=== PATIENT | male | born 1945 | race Caucasian/White ===

== ENCOUNTER 2016-05-01 16:48 | Inpatient (IN) | payer OTHER ==
[~2016-05-01] VITALS: Ht 167.6 cm; Wt 50.0 kg
[2016-05-01 16:51] VITALS: BP 124/80; RESP 18
[2016-05-01 17:49] VITALS: Ht 167.6 cm; Wt 50.0 kg
[2016-05-01] MEDS ORDERED: MAGNESIUM HYDROXIDE 30ML CUP PO PRN (18:30)
[2016-05-01] MEDS ORDERED: ACETAMINOPHEN 325 MG TAB PO PRN (18:30)
[2016-05-01] MEDS ORDERED: NACL 0.9% 3 ML SYG IV SCH (18:30)
[2016-05-01] MEDS ORDERED: DOCUSATE SODIUM 100 MG CAP PO PRN (18:30)
[2016-05-01] MEDS ORDERED: ONDANSETRON 4 MG INJ IV PRN (18:30)
[2016-05-01] MEDS ORDERED: HYDROCODONE/APAP (5/325) TAB PO PRN (18:30)
--- NOTE | 2016-05-01 19:35 | HP ---
DATE OF ADMISSION: 05/01/2016 CHIEF COMPLAINT: Left hip pain. HISTORY OF PRESENT ILLNESS: The patient is a 70-year-old male with a history of hypertension, end-s tage renal disease on dialysis for the past 2 years. The patient's management technician is Dr. Catarino knox. The patient states that he was mopping the floor when he fell on his left side. Presented to [facility] where x-ray showed left hip fracture. Patient denies any cardiac history. Denies any other si gnificant medical history, states that he has not been on his blood pressure medications because he was told to stop by his PCP as he does not need it. He has no other complaints at this time. PAST MEDICAL HISTORY: Hypertension, end-stage renal disease, likely from chronic hypertension. The patient has been on dialysis for the past several years. PAST SURGICAL HISTORY: Denies. HOME MEDICATIONS: Unknown at this time. ALLERGIES: NO KNOWN DRUG ALLERGIES. FAMILY HISTORY: Denies. SOCIAL HISTORY: Denies any alcohol, tobacco or drugs. REVIEW OF SYSTEMS: A 12-point review of systems is negative except for that discussed in HPI. PHYSICAL EXAMINATION: VITAL SIGNS: Temperature is 98.9, pulse 100, respiratory rate 18, BP is 124/80, saturation ____% on room air. GENERAL: No acute distress, alert and oriented. HEENT: Normocephalic, atraumatic. LUNGS: Clear to auscultation. CARDIOVASCULAR: Regular rate and rhythm. ABDOMEN: Nondistended, nontender, soft. EXTREMITIES: No clubbing, cyanosis, or edema. LABORATORIES: White count 12.8, hemoglobin is 12.6, platelets 246. Sodium is 131, K is 7.1, creati nine is 12.36, BUN is 127. DIAGNOSTICS: Left hip x-ray shows a left hip fracture. EKG shows sinus tachycardia, nonspecific T- wave abnormality. ASSESSMENT AND PLAN: 1. Left femoral neck fracture. Dr. Pedroza of Orthopedics has been consulted and will evaluate the pat ient this evening. The patient will likely need to have surgery. Will give morphine and [place] for pain control. 2. Hyperkalemia. It appears that the patient received dialysis last night at [place] as the patient 's K was severely elevated. The patient got admitted due to this hyperkalemia and receive emergent dialysis. Will consult his management technician, Dr. Mccabe, for further dialysis. 3. History of hypertension. The patient states that he is not on any blood pressure medications at this time. 4. Leukocytosis. This could be reactive. No evidence of infection at this time. Will monitor. 5. End-stage renal disease. Once again we will consult his management technician. 6. Prophylaxis. SCDs. Dictated By: TERESA LEA MD BS/NTS Conf#: [id number] DID#: [id number]
[2016-05-01 19:46] VITALS: BP 126/81; RESP 18
--- NOTE | 2016-05-01 20:40 | CONS ---
DATE OF ADMISSION: 05/01/2016 DATE OF CONSULTATION: 05/01/2016 HISTORY OF PRESENT ILLNESS: The patient is a 70-year-old male, with a known history of end-stage re nal disease on dialysis for the past 2 years, who was transferred in from the Emergency Room of [facility] on 05/01/2016. He developed pain involving his left hip about 2 months ago, and the elsy n was bad enough for him to go around with a walker; however, he sustained a ground level fall about 15 days ago while mopping the floor 15 days ago and he has been experiencing worsening pain. In th e Emergency Room of [facility], he was found to have hyperkalemia. He is also known to have ch ronic hypertension. PHYSICAL EXAMINATION GENERAL: My examination revealed a 70-year-old male, somewhat emaciated, who was complaining of elsy n involving his left hip. EXTREMITIES: There was tenderness and swelling around the left hip, but the swelling was minimal at this time. He was holding his left lower extremity externally rotated and slightly shortened. The re was no evidence of acute neurovascular compromise involving his left lower extremity. X-RAYS: Of the pelvis revealed a subcapital femoral neck fracture of the left hip, which is complet joseluis displaced. DIAGNOSTIC IMPRESSION 1. Subcapital femoral neck fracture of the left hip. 2. Rule out remote possibility of pathologic fracture because of the absence of trauma, the further development of the left hip pain. TREATMENT PLAN 1. Rule out the possibility of pathologic fracture. 2. To surgery for hemiarthroplasty of the left hip after appropriate workup and medical clearance. Dictated By: ABIMBOLA KIRKLAND/VIOLA Conf#: [id number] DID#: [id number]
--- NOTE | 2016-05-01 23:02 | CONS ---
DATE OF ADMISSION: 05/01/2016 DATE OF CONSULTATION: 05/01/2016 TYPE OF CONSULTATION: Nephrology. REFERRING PHYSICIAN: Dr. Garzon REASON FOR CONSULTATION: End-stage renal disease on hemodialysis who presented with a hip fracture for maintenance hemodialysis. HISTORY OF PRESENT ILLNESS: This is a 70-year-old male with a past medical history of hypertension, history of polycystic kidney disease and end-stage renal disease on hemodialysis for the past 2 yea rs. The patient follows at the dialysis unit for scheduled dialysis on Thursday and . He pr esented to the [facility] after having a fall episode. The patient was moping his floor when he fell on his left side. He went to the [facility] Emergency Room where his x-ray shows a left hip fracture. The patient denies any cardiac history. He has no other significant past medical his tory except hypertension and polycystic kidney disease. He has not been taking his blood pressure m edications because his blood pressures has been running on the lower side of dialysis. The patient denies any symptoms of chest pain, palpitations, headache, dizziness, blurry vision, constipation, d iarrhea, dysuria, increased urinary frequency. The patient has a left hip fracture. He got transferred to the [facility] for [facility] care. REVIEW OF SYSTEMS: Positive for a fall episode at home and the left hip pain. Other 12 point revie w of systems has been obtained and is negative except what is mentioned in the history of present il lness. PAST MEDICAL HISTORY: Notable for hypertension, hyperlipidemia, end-stage renal disease on hemodial ysis secondary to a polycystic kidney disease. Patient gets dialysis Tuesdays and through the AV fistula. PAST SURGICAL HISTORY: History of AV fistula for dialysis access. HOME MEDICATIONS: Not available. ALLERGIES: NO KNOWN DRUG ALLERGIES. FAMILY HISTORY: No family history of cardiac disease or stroke in the family. Patient is not sure about his parents, whether they had a polycystic kidney disease or not. SOCIAL HISTORY: The patient lives with the family. No smoking, alcohol or recreational drug use. PHYSICAL EXAMINATION: VITAL SIGNS: Temperature 99.2, heart rate 110, respirations 18, blood pressure 126/81, saturation i s 94% on room air. GENERAL: Awake, alert. Mild distress due to the pain and tachycardia. HEENT: Normal. Oropharynx clear. NECK: Supple, no JVD, no lymphadenopathy. LUNGS: Clear to auscultation. No crackles, no wheezes. HEART: S1, S2, with regular rhythm, tachycardia. ABDOMEN: Soft, nontender, nondistended. Bowel sounds are normal. EXTREMITIES: The patient has left hip pain externally rotated. Not able to assess any motor strength or sensations on the left side. Right lower extremity is normal. NEUROLOGICAL: Nonfocal, intact. PSYCHIATRIC: Appropriate affect and mood. SKIN: The patient has AV fistula for dialysis access. The patient has no labs available here at [facility] but he has labs done at the [facility] as follows: WBC count 12.8, hemoglobin 12.6, platelet count 246. Sodium 131, potass ium 7.1, creatinine is 12.3, BUN 127. DIAGNOSTIC: Left hip x-ray shows a left hip fracture. EKG shows a sinus tachycardia, nonspecific T- wave abnormalities. IMPRESSION: This is a 70-year-old male with: 1. Left hip femoral neck fracture. 2. Acute hyperkalemia. The patient received dialysis last night at the [facility] because it was severely elevated. 3. History of end-stage renal disease on hemodialysis Thursday, and Thursday at the dialysi s unit. 4. History of polycystic kidney disease has etiology for end-stage renal disease. 5. History of hypertension, not on any medication. 6. Leukocytosis secondary to possibly reactive leukocytosis. PLAN: Thank you, Dr. Garzon, for this consultation. The patient had hemodialysis done emergently yesterday night on 04/30/2016 at [facility]. Currently, he got transferred to the [facility]. There are no chemistries available, but his potassium had been normal after the hemodialysis over there. His blood pressure has been very well controlled at this point. We will ar range the patient's hemodialysis to be done tomorrow. The patient is currently seen on the med/surg floor and he will be followed up along with the primary care service. The patient has a left hip f racture. He has no other significant cardiac history. He is medically stable from a renal point of view to have a hip surgery. Plan is to do another session of hemodialysis tomorrow if orthopedic is planning to do a surgery. We will continue to follow this patient along with the primary care service and the orthopaedic servic e. Total time spent in this patient evaluation, making assessment and plan, [facility] and updating the patient, communicating with the nursing staff took more than 60 minutes. Dictated By: AME MESA MD, KP/VIOLA Conf#: [id number] DID#: [id number]
[2016-05-02] VITALS (13 sets, daily range): BP systolic 100–135; BP diastolic 64–92; PULSE 79–106; RESP 16–18
[2016-05-02 06:25] LABS: ADD SCAN DIFF NO
[2016-05-02 06:28] LABS: ABNORMAL IP MESSAGE 1; BASOPHILS % 0.4 % (0.0-2.0); EOSINOPHILS # 0.1 10^3/ul (0.0-0.5); EOSINOPHILS % 0.9 % (0.0-7.0); HEMATOCRIT 37.2 % (42.0-52.0); HEMOGLOBIN 12.4 g/dl (14.0-18.0); LYMPHOCYTES # 0.4 10^3/ul (0.8-2.9); LYMPHOCYTES % 4.8 % (15.0-51.0); MEAN CORPUSCULAR HEMOGLOBIN 29.9 pg (29.0-33.0); MEAN CORPUSCULAR HGB CONC 33.3 g/dl (32.0-37.0); MEAN CORPUSCULAR VOLUME 89.6 fl (82.0-101.0); MEAN PLATELET VOLUME 10.1 fl (7.4-10.4); MONOCYTE # 0.8 10^3/ul (0.3-0.9); MONOCYTES % 9.6 % (0.0-11.0); NEUTROPHIL # 7.2 10^3/ul (1.6-7.5); NEUTROPHILS % 84.1 % (39.0-77.0); PLATELET COUNT 342 10^3/UL (140-415); RED BLOOD COUNT 4.15 10^6/ul (4.70-6.10); RED CELL DISTRIBUTION WIDTH 13.2 % (11.5-14.5); WHITE BLOOD COUNT 8.5 10^3/ul (4.8-10.8)
[2016-05-02 07:00] LABS: CREATININE 8.31 mg/dl (0.61-1.24)
[2016-05-02 07:01] LABS: MAGNESIUM 2.3 mg/dl (1.7-2.5); PHOSPHORUS 7.5 mg/dl (2.5-4.9)
[2016-05-02 08:12] LABS: INR 1.16; PROTIME 14.9 Sec (12.2-14.2); PT RATIO 1.2
--- NOTE | 2016-05-02 11:01 | CONS ---
Date/Time of Note Date/Time of Note DATE: 05/02/16 TIME: 10:55 Assessment/Plan Assessment/Plan Additional Assessment/Plan Preoperative cardiac risk stratification Hip fracture End-stage renal disease on hemodialysis Hypertension -Patient states he is able to climb at least 2 flights of stairs before getting fatigue, denies exertional chest pain or shortness of breath. No significant ischemic abnormalities on ECG. Would obtain an echocardiogram as well to evaluate LV function secondary to the need of any fluids for raphael-and postoperative period. Unless any significant valvular abnormalities, given patient's multiple risk factors, he is at an intermediate risk for any untoward cardiac events for his surgery. The benefits likely outweigh the risks. Consultation Date/Type/Reason Admit Date/Time May 01, 2016 at 16:48 Type of Consultation: cv Reason for Consultation Hip fracture and preoperative cardiac risk stratification Hx of Present Illness This is a 70-year-old male with history of hypertension, end-stage renal disease on hemodialysis for the past 3 years who had a mechanical fall approximately 1 week ago. Patient states he slipped and fell on his left side. He denies any prodrome of dizziness or lightheadedness, chest pain or shortness of breath. He has been having continual left hip pain and difficulty walking since then. He presented to an outside facility and diagnosed with a hip fracture and transferred to our facility for further evaluation and care. Prior to this, he denies any exertional chest pain or shortness of breath. He is able to climb at least 2 flights of stairs until getting fatigued, but denies chest pain or shortness of breath. He denies any history of cardiac pathology. 12 point review of systems was performed with all pertinent positives and negatives mentioned above and all else is negative Past Medical History Medical History: hypertension, renal disease Past Surgical History Dialysis fistula Hernia surgery Family History Significant Family History: no pertinent family hx Social History Alcohol Use: none Smoking Status: Former smoker Drug Use: none Exam/Review of Systems Vital Signs Vitals Vital Signs Date Time Temp Pulse Resp B/P Pulse Ox O2 Delivery O2 Flow Rate FiO2 05/02/16 10:25 102 05/02/16 08:30 14 05/02/16 08:13 99.1 135/84 99 Intake and Output 05/01/16 05/01/16 05/02/16 15:00 23:00 07:00 Intake Total 120 ml Balance 120 ml Exam No apparent distress, undergoing hemodialysis Constitutional: alert, frail, oriented Head: normocephalic Neck: supple Respiratory: other (Coarse breath sounds bilaterally, no wheezing, rhonchi) Cardiovascular: other (S1-S2 heard), regular rate and rhythm Gastrointestinal: bowel sounds, non-tender, other (No guarding), soft Extremities: other (No edema or cyanosis) Results Result Diagram: 05/02/16 0559 05/02/16 0559 Results 24 hrs Laboratory Tests Test 05/02/16 05:59 Activated Partial Thromboplast Time 33.0 Anion Gap 22 H Basophils # 0.0 Basophils % 0.4 Blood Urea Nitrogen 76 H Calcium Level 9.0 Carbon Dioxide Level 26 Chloride Level 95 L Creatinine 8.31 H Eosinophils # 0.1 Eosinophils % 0.9 Glucose Level 100 Hematocrit 37.2 L Hemoglobin 12.4 L Hemoglobin A1c 5.3 INR International Normalized Ratio 1.16 Lymphocytes # 0.4 L Lymphocytes % 4.8 L Magnesium Level 2.3 Mean Corpuscular Hemoglobin 29.9 Mean Corpuscular Hemoglobin Concent 33.3 Mean Corpuscular Volume 89.6 Mean Platelet Volume 10.1 Monocytes # 0.8 Monocytes % 9.6 Neutrophils # 7.2 Neutrophils % 84.1 H Nucleated Red Blood Cells # 0.0 Nucleated Red Blood Cells % 0.0 Phosphorus Level 7.5 H Platelet Count 342 Potassium Level 5.0 Prothrombin Time 14.9 H Prothrombin Time Ratio 1.2 Red Blood Count 4.15 L Red Cell Distribution Width 13.2 Sodium Level 138 White Blood Count 8.5 Medications Medications Current Medications Ondansetron HCl (Zofran Inj) 4 mg Q6H PRN IV NAUSEA AND/OR VOMITING; Start 05/01 at 18:30 Acetaminophen (Tylenol Tab) 650 mg Q6H PRN PO PAIN LEVEL 1-3 OR FEVER; Start at 18:30 Acetaminophen/ Hydrocodone Bitart ([place] (5/325)) 1 tab Q6H PRN PO MODERATE PAIN LEVEL 4-6; Start 05/01/16 at 18:30 Morphine Sulfate (morphine) 2 mg Q4H PRN IV SEVERE PAIN LEVEL 7-10; Start at 18:30 Docusate Sodium (Colace) 100 mg Q12H PRN PO CONSTIPATION; Start 05/01/16 at 18: 30 Magnesium Hydroxide (Milk Of Mag) 30 ml DAILY PRN PO CONSTIPATION; Start at 18:30 Procedures Procedures ECG done today demonstrates sinus tachycardia 104 bpm, QRS 86 ms, nonspecific STT wave abnormalities Jerry Che DO May 02, 2016 11:01
--- NOTE | 2016-05-02 13:46 | RADRPT ---
Vent Rate: 104 bpm RR Interval: [address] Interval: 112 msec QRS Duration: 86 msec QT Interval: 350 msec QTC Interval: 460 msec P-R-T [place]: 57 - 40 - 71 degrees Sinus tachycardia Nonspecific ST abnormality Abnormal ECG Electronically Signed By: Matt Bryson [id number]
--- NOTE | 2016-05-02 14:11 | PN ---
Date/Time of Note Date/Time of Note DATE: 05/02/16 TIME: 14:07 Assessment/Plan VTE Prophylaxis VTE Prophylaxis Intervention: SCD's Lines/Catheters IV Catheter Type (from [facility]): [place] Urinary Cath still in place: No Assessment/Plan Chief Complaint/Hosp Course 1. Left femoral neck fracture -Surgery today -Cards eval appreciated 2. ESRD with Hyperkalemia at outside facility- now stable -cont HD per Renal 3. History of hypertension-stable without Rx 4. Leukocytosis-resolved -No evidence of infection at this time PPx-SCD's Problems: Subjective 24 Hr Interval Summary Musculoskeletal: bone/joint pain Exam/Review of Systems Vital Signs Vitals Vital Signs Date Time Temp Pulse Resp B/P Pulse Ox O2 Delivery O2 Flow Rate FiO2 05/02/16 13:52 98.3 05/02/16 11:42 79 14 05/02/16 08:13 135/84 99 Intake and Output 05/01/16 05/01/16 05/02/16 15:00 23:00 07:00 Intake Total 120 ml Balance 120 ml Exam Constitutional: alert, oriented Respiratory: clear to auscultation Cardiovascular: regular rate and rhythm Gastrointestinal: soft, No distended Musculoskeletal: nl extremities to inspection Results Result Diagram: 05/02/16 0559 05/02/16 0559 Results 24 hrs Laboratory Tests Test 05/02/16 05:59 Activated Partial Thromboplast Time 33.0 Anion Gap 22 H Basophils # 0.0 Basophils % 0.4 Blood Urea Nitrogen 76 H Calcium Level 9.0 Carbon Dioxide Level 26 Chloride Level 95 L Creatinine 8.31 H Eosinophils # 0.1 Eosinophils % 0.9 Glucose Level 100 Hematocrit 37.2 L Hemoglobin 12.4 L Hemoglobin A1c 5.3 INR International Normalized Ratio 1.16 Lymphocytes # 0.4 L Lymphocytes % 4.8 L Magnesium Level 2.3 Mean Corpuscular Hemoglobin 29.9 Mean Corpuscular Hemoglobin Concent 33.3 Mean Corpuscular Volume 89.6 Mean Platelet Volume 10.1 Monocytes # 0.8 Monocytes % 9.6 Neutrophils # 7.2 Neutrophils % 84.1 H Nucleated Red Blood Cells # 0.0 Nucleated Red Blood Cells % 0.0 Phosphorus Level 7.5 H Platelet Count 342 Potassium Level 5.0 Prothrombin Time 14.9 H Prothrombin Time Ratio 1.2 Red Blood Count 4.15 L Red Cell Distribution Width 13.2 Sodium Level 138 White Blood Count 8.5 Medications Medications Current Medications Ondansetron HCl (Zofran Inj) 4 mg Q6H PRN IV NAUSEA AND/OR VOMITING; Start 05/01 at 18:30 Acetaminophen (Tylenol Tab) 650 mg Q6H PRN PO PAIN LEVEL 1-3 OR FEVER; Start at 18:30 Acetaminophen/ Hydrocodone Bitart ([place] (5/325)) 1 tab Q6H PRN PO MODERATE PAIN LEVEL 4-6; Start 05/01/16 at 18:30 Morphine Sulfate (morphine) 2 mg Q4H PRN IV SEVERE PAIN LEVEL 7-10; Start at 18:30 Docusate Sodium (Colace) 100 mg Q12H PRN PO CONSTIPATION; Start 05/01/16 at 18: 30 Magnesium Hydroxide (Milk Of Mag) 30 ml DAILY PRN PO CONSTIPATION; Start at 18:30 TERESA LEA May 02, 2016 14:11
--- NOTE | 2016-05-02 15:12 | RADRPT ---
Echocardiogram Report Patient Name: MC TYLER Gender: Male Date: 1945 Study Date: 02-May-2016 Transformer Tester: Dom Serna [facility] Location: [id number] Ref. Physician: JERRY RUELAS Quality: Technically Difficult Study Procedures: Transthoracic echocardiogram with complete 2D, M-Mode, and doppler examination. Indications: Pre-op. 2D/M Mode Doppler Measurement Value Normal Ranges Measurement Value Normal Ranges LVIDd 2D 3.8 3.5 - 5.6 cm AV Peak [place] 1.2 m/sec LVIDs 2D 2.8 2.1 - 4.1 cm AV Peak PG 6.0 mmHg FS 2D 26.4 % LVOT Peak [place] 0.7 m/sec LVPWd 2D 1.2 0.6 - 1.1 cm LVOT Peak PG 2.0 mmHg IVSd 2D 1.3 0.6 - 1.1 cm MV E Peak [place] 0.4 m/sec IVS/LVPW 2D 1.0 MV A Peak [place] 0.6 m/sec AoR Diam 2D 3.4 2.0 - 3.7 cm MV E/A 0.7 LA/Ao 2D 1 0 - 1 MV Decel Time 134 msec EDV 2D 52.7 cm3 MV E/A 0.7 ESV 2D 21.0 cm3 TR Peak [place] 2.3 m/sec LA Dimen 2D 2.8 2.3 - 4.0 cm TR Peak PG 22.0 mmHg RVSP 25.0 mmHg Findings Left Ventricle: Overall, normal left ventricular systolic function. Not all segments visualized. Normal left ventricular cavity size. Mild concentric left ventricular hypertrophy. Ejection fraction is visually estimated at 60 %. Tissue Doppler/Mitral Doppler indices are consistent with impaired relaxation (Stage I diastolic dysfunction). Right Ventricle: Normal right ventricular size. Normal right ventricular systolic function. Left Atrium: The left atrium is normal in size. Right Atrium: The right atrium is normal in size. Mitral Valve: Mitral valve is not well visualized. Trace mitral regurgitation. Aortic Valve: No significant aortic stenosis or insufficiency. Aortic valve not well visualized. Aortic cusps appear mildly calcified. Tricuspid Valve: Tricuspid valve not well visualized. Estimated peak PA systolic pressure 25 mmHg. There is trace tricuspid regurgitation. Pulmonic Valve: Pulmonic valve not well visualized. Pericardium: Normal pericardium with no significant pericardial effusion. Aorta: Normal aortic root. IVC: Normal size and normal respiratory collapse consistent with normal right atrial pressure. Conclusions 1.Overall, normal left ventricular systolic function. Not all segments visualized. Normal left ventricular cavity size. Mild concentric left ventricular hypertrophy. Ejection fraction is visually estimated at 60 %. Tissue Doppler/Mitral Doppler indices are consistent with impaired relaxation (Stage I diastolic dysfunction). 2.Normal right ventricular size. Normal right ventricular systolic function. 3.The left atrium is normal in size. 4.The right atrium is normal in size. 5.No significant valvular stenosis or regurgitation seen. 6.Normal pericardium with no significant pericardial effusion. Electronically Signed By: Jerry Ruelas 02-May-2016 15:08:50 -0800 Patient Name: MC TYLER Study Date: 02-May-2016 [id number]
--- NOTE | 2016-05-02 15:28 | CONS ---
Date/Time of Note Date/Time of Note DATE: 05/02/16 TIME: 15:25 Assessment/Plan Assessment/Plan Additional Assessment/Plan 1. Left hip femoral neck fracture. 2. Acute hyperkalemia. The patient received dialysis last night at the [facility] because it was severely elevated. 3. History of end-stage renal disease on hemodialysis Thursday, and Thursday at the dialysis unit. 4. History of polycystic kidney disease has etiology for end-stage renal disease. 5. History of hypertension, not on any medication. 6. Leukocytosis secondary to possibly reactive leukocytosis. PLAN: Getting HD now, no HD tomorrow Plan for orthopedic surgery today will paln for next HD on Thursday will follow up Consultation Date/Type/Reason Admit Date/Time May 01, 2016 at 16:48 Initial Consult Date April Type of Consultation: NEPHROLOGY Reason for Consultation ESRD on HD,presented with left femoral fracture Referring Provider: TERESA LEA 24 HR Interval Summary Free Text/Dictation getting HD now, Plan for Surery today by Exam/Review of Systems Vital Signs Vitals Vital Signs Date Time Temp Pulse Resp B/P Pulse Ox O2 Delivery O2 Flow Rate FiO2 05/02/16 13:52 98.3 05/02/16 11:42 79 14 05/02/16 08:13 135/84 99 Intake and Output 05/01/16 05/01/16 05/02/16 15:00 23:00 07:00 Intake Total 120 ml Balance 120 ml Exam GENERAL: Awake, alert. Mild distress due to the pain and tachycardia. HEENT: Normal. Oropharynx clear. NECK: Supple, no JVD, no lymphadenopathy. LUNGS: Clear to auscultation. No crackles, no wheezes. HEART: S1, S2, with regular rhythm, tachycardia. ABDOMEN: Soft, nontender, nondistended. Bowel sounds are normal. EXTREMITIES: The patient has left hip pain externally rotated. Not able to assess any motor strength or sensations on the left side. Right lower extremity is normal. NEUROLOGICAL: Nonfocal, intact. PSYCHIATRIC: Appropriate affect and mood. SKIN: The patient has AV fistula for dialysis access. Results Result Diagram: 05/02/16 0559 05/02/16 0559 Results 24 hrs Laboratory Tests Test 05/02/16 05:59 Activated Partial Thromboplast Time 33.0 Anion Gap 22 H Basophils # 0.0 Basophils % 0.4 Blood Urea Nitrogen 76 H Calcium Level 9.0 Carbon Dioxide Level 26 Chloride Level 95 L Creatinine 8.31 H Eosinophils # 0.1 Eosinophils % 0.9 Glucose Level 100 Hematocrit 37.2 L Hemoglobin 12.4 L Hemoglobin A1c 5.3 INR International Normalized Ratio 1.16 Lymphocytes # 0.4 L Lymphocytes % 4.8 L Magnesium Level 2.3 Mean Corpuscular Hemoglobin 29.9 Mean Corpuscular Hemoglobin Concent 33.3 Mean Corpuscular Volume 89.6 Mean Platelet Volume 10.1 Monocytes # 0.8 Monocytes % 9.6 Neutrophils # 7.2 Neutrophils % 84.1 H Nucleated Red Blood Cells # 0.0 Nucleated Red Blood Cells % 0.0 Phosphorus Level 7.5 H Platelet Count 342 Potassium Level 5.0 Prothrombin Time 14.9 H Prothrombin Time Ratio 1.2 Red Blood Count 4.15 L Red Cell Distribution Width 13.2 Sodium Level 138 White Blood Count 8.5 Medications Medications Current Medications Ondansetron HCl (Zofran Inj) 4 mg Q6H PRN IV NAUSEA AND/OR VOMITING; Start 05/01 at 18:30 Acetaminophen (Tylenol Tab) 650 mg Q6H PRN PO PAIN LEVEL 1-3 OR FEVER; Start at 18:30 Acetaminophen/ Hydrocodone Bitart ([place] (5/325)) 1 tab Q6H PRN PO MODERATE PAIN LEVEL 4-6; Start 05/01/16 at 18:30 Morphine Sulfate (morphine) 2 mg Q4H PRN IV SEVERE PAIN LEVEL 7-10; Start at 18:30 Docusate Sodium (Colace) 100 mg Q12H PRN PO CONSTIPATION; Start 05/01/16 at 18: 30 Magnesium Hydroxide (Milk Of Mag) 30 ml DAILY PRN PO CONSTIPATION; Start at 18:30 AME MESA MD May 02, 2016 15:28
--- NOTE | 2016-05-02 16:56 | RADRPT ---
PROCEDURE: Whole body bone scan study CLINICAL INDICATION: 70 -year-old patient with left lower extremity and shoulder pain. TECHNIQUE: Following the intravenous injection of 23.5 mCi of Tc-99m MDP, whole body anterior and posterior planar images were obtained along with spot views of the pelvis. COMPARISON: No prior bone scans are available for comparison. FINDINGS: Numerous areas of increased activity are seen in both shoulders, left anterior rib cage, right poste rior approximately 6th rib, mid cervical spine, T11 thoracic spine and both sacroiliac joints, more prominent on the right. Mildly increased activity is also seen in the left hip region. No other definite abnormal areas of increased activity or asymmetries are visualized in the study an d distribution of radionuclide is homogeneous in the skull, spine, rib cages, sternum, pelvis and vi sualized portions of the upper and lower extremities. Of incidental note, the kidneys are poorly visualized. IMPRESSION: 1. Numerous areas of increased tracer activity in the skeleton, as described above, may represent p ost-traumatic changes; correlation with x-ray is strongly recommended. Other etiologies such as ske letal metastases cannot be ruled out, but felt to be less likely possibility. 2. No other definite skeletal abnormalities. 3. Poor visualization of the kidneys. RPTAT: HH .Jacquelin Leyva MD, Date Time Electronically viewed and signed by .Jacquelin Leyva MD, on 05/02/2016 16:56 .L/
[2016-05-02] MEDS: morphine 2 MG INJ IV PRN (20:44)
[2016-05-03] VITALS (16 sets, daily range): BP systolic 117–137; BP diastolic 75–83; PULSE 80–84; RESP 11–25
[2016-05-03 05:32] LABS: ADD SCAN DIFF NO
[2016-05-03 05:52] LABS: BASOPHILS % 0.2 % (0.0-2.0); EOSINOPHILS # 0.2 10^3/ul (0.0-0.5); EOSINOPHILS % 2.5 % (0.0-7.0); HEMOGLOBIN 12.8 g/dl (14.0-18.0); LYMPHOCYTES # 0.6 10^3/ul (0.8-2.9); LYMPHOCYTES % 7.2 % (15.0-51.0); MEAN CORPUSCULAR HGB CONC 32.8 g/dl (32.0-37.0); MEAN CORPUSCULAR VOLUME 91.5 fl (82.0-101.0); MEAN PLATELET VOLUME 9.9 fl (7.4-10.4); MONOCYTE # 0.9 10^3/ul (0.3-0.9); MONOCYTES % 10.4 % (0.0-11.0); NEUTROPHILS % 79.2 % (39.0-77.0); PLATELET COUNT 396 10^3/UL (140-415); RED BLOOD COUNT 4.26 10^6/ul (4.70-6.10); RED CELL DISTRIBUTION WIDTH 13.1 % (11.5-14.5); WHITE BLOOD COUNT 8.8 10^3/ul (4.8-10.8)
[2016-05-03 06:24] LABS: POTASSIUM 3.7 mmol/L (3.5-5.1)
[2016-05-03 06:27] LABS: CALCIUM 9.3 mg/dl (8.4-10.2); CREATININE 6.77 mg/dl (0.61-1.24)
[2016-05-03] MEDS ORDERED: CEFAZOLIN 1 GM INJ ONE (07:00)
[2016-05-03] MEDS ORDERED: ONDANSETRON 4 MG INJ ONE (07:00)
--- NOTE | 2016-05-03 09:41 | HPN ---
Date/Time of Note Date/Time of Note DATE: 05/03/16 TIME: 09:40 Interval H&P Admission Note Pt. seen H&P reviewed: No system changes MARY COY MD May 03, 2016 09:41
[2016-05-03] MEDS ORDERED: FENTAnyl 50 MCG/ML VIAL ONE ×2 (09:56)
[2016-05-03] MEDS ORDERED: PROPOFOL 100 ML ONE (10:24)
[2016-05-03] MEDS ORDERED: LABETALOL HCL 20MG INJ ONE (10:25)
[2016-05-03] MEDS ORDERED: MIDAZOLAM 1 MG/ML 2 ML INJ ONE (10:31)
[2016-05-03] MEDS ORDERED: POLYMYXIN/BACITRACIN 1L IRRIG IRR ONE (10:46)
[2016-05-03] MEDS ORDERED: LABETALOL HCL 20MG INJ IV PRN (11:00)
[2016-05-03] MEDS ORDERED: MIDAZOLAM 1 MG/ML 2 ML INJ IV PRN (11:00)
[2016-05-03] MEDS ORDERED: TRIMETHOBENZAMIDE 100 MG/ML VIAL IM PRN (11:00)
[2016-05-03] MEDS ORDERED: ONDANSETRON 4 MG INJ IV PRN (11:00)
[2016-05-03] MEDS ORDERED: hydrALAzine 20 MG INJ IV PRN (11:00)
[2016-05-03] MEDS ORDERED: HYDROmorphONE (0.2 MG/ML) 10ML SYG IV PRN ×3 (11:00)
[2016-05-03] MEDS ORDERED: EPHEDrine SULFATE 50 MG/5 ML SYG IV PRN (11:00)
[2016-05-03] MEDS ORDERED: FENTAnyl 50 MCG/ML VIAL IV PRN ×3 (11:00)
[2016-05-03] MEDS ORDERED: DIPHENHYDRAMINE 50 MG INJ IV PRN (11:00)
[2016-05-03] MEDS ORDERED: MEPERIDINE 25 MG INJ IV PRN (11:00)
[2016-05-03] MEDS ORDERED: DEXTROSE 5%-0.45% NACL 1,000 ML IV SCH (11:37)
[2016-05-03] MEDS ORDERED: HYDROmorphONE 1 MG/ML SYG IM PRN (12:00)
[2016-05-03] MEDS ORDERED: HYDROCODONE/APAP (5/325) TAB PO PRN (12:00)
[2016-05-03] MEDS ORDERED: NACL 0.9% 3 ML SYG IV SCH (12:00)
[2016-05-03] MEDS ORDERED: CEFAZOLIN 1 GM/50 ML (PMX) 50 ML IVPB SCH (12:00)
--- NOTE | 2016-05-03 12:20 | CONS ---
Date/Time of Note Date/Time of Note DATE: 05/03/16 TIME: 12:18 Assessment/Plan Assessment/Plan Additional Assessment/Plan 1. Left hip femoral neck fracture. 2. Acute hyperkalemia. The patient received dialysis last night at the [facility] because it was severely elevated. 3. History of end-stage renal disease on hemodialysis Thursday, and Thursday at the dialysis unit. 4. History of polycystic kidney disease has etiology for end-stage renal disease. 5. History of hypertension, not on any medication. 6. Leukocytosis secondary to possibly reactive leukocytosis. PLAN: S/p HD yesterday, plan for HD tomorrow Orthopedic surgery planning for Left hip hemiarthroplasty today will follow up Consultation Date/Type/Reason Admit Date/Time May 01, 2016 at 16:48 Initial Consult Date April Type of Consultation: NEPHROLOGY Reason for Consultation acute hyperkalemia,ESRD on HD, presented with hip fracture Referring Provider: TERESA LEA 24 HR Interval Summary Free Text/Dictation S/p HD yesterday, BP stable, plan for surgery today Exam/Review of Systems Vital Signs Vitals Vital Signs Date Time Temp Pulse Resp B/P Pulse Ox O2 Delivery O2 Flow Rate FiO2 05/03/16 11:48 98.1 05/03/16 07:44 90 18 121/82 95 05/02/16 20:27 Room Air Intake and Output 05/02/16 05/02/16 05/03/16 15:00 23:00 07:00 Intake Total 500 ml 580 ml Output Total 2500 ml 250 ml Balance -2000 ml 330 ml Exam HEENT: Normal. Oropharynx clear. NECK: Supple, no JVD, no lymphadenopathy. LUNGS: Clear to auscultation. No crackles, no wheezes. HEART: S1, S2, with regular rhythm, tachycardia. ABDOMEN: Soft, nontender, nondistended. Bowel sounds are normal. EXTREMITIES: The patient has left hip pain externally rotated. Not able to assess any motor strength or sensations on the left side. Right lower extremity is normal. SKIN: The patient has AV fistula for dialysis access. Results Result Diagram: 05/03/16 0518 05/03/16 0518 Results 24 hrs Laboratory Tests Test 05/03/16 05:18 Anion Gap 20 H Basophils # 0.0 Basophils % 0.2 Blood Urea Nitrogen 60 H Calcium Level 9.3 Carbon Dioxide Level 31 Chloride Level 95 L Creatinine 6.77 H Eosinophils # 0.2 Eosinophils % 2.5 Glucose Level 110 Hematocrit 39.0 L Hemoglobin 12.8 L Lymphocytes # 0.6 L Lymphocytes % 7.2 L Mean Corpuscular Hemoglobin 30.0 Mean Corpuscular Hemoglobin Concent 32.8 Mean Corpuscular Volume 91.5 Mean Platelet Volume 9.9 Monocytes # 0.9 Monocytes % 10.4 Neutrophils # 7.0 Neutrophils % 79.2 H Nucleated Red Blood Cells # 0.0 Nucleated Red Blood Cells % 0.0 Platelet Count 396 Potassium Level 3.7 Red Blood Count 4.26 L Red Cell Distribution Width 13.1 Sodium Level 142 White Blood Count 8.8 Medications Medications Current Medications Ondansetron HCl (Zofran Inj) 4 mg Q6H PRN IV NAUSEA AND/OR VOMITING; Start 05/01 at 18:30 Acetaminophen (Tylenol Tab) 650 mg Q6H PRN PO PAIN LEVEL 1-3 OR FEVER; Start at 18:30 Acetaminophen/ Hydrocodone Bitart ([place] (5/325)) 1 tab Q6H PRN PO MODERATE PAIN LEVEL 4-6; Start 05/01/16 at 18:30 Morphine Sulfate (morphine) 2 mg Q4H PRN IV SEVERE PAIN LEVEL 7-10 Last administered on 05/02/16t 20:44; Admin Dose 2 MG; Start 05/01/16 at 18:30 Docusate Sodium (Colace) 100 mg Q12H PRN PO CONSTIPATION; Start 05/01/16 at 18: 30 Magnesium Hydroxide 30 ml 30 ml DAILY PRN PO CONSTIPATION; Start 05/01/16 at 18: 30 Dextrose/Sodium Chloride (D5-1/2ns) 1,000 ml @ 125 mls/hr Q8H IV ; Start at 11:37 Acetaminophen/ Hydrocodone Bitart ([place] (5/325)) 1 tab Q4H PRN PO PAIN LEVEL 1 -3; Start 05/03/16 at 12:00 Acetaminophen/ Hydrocodone Bitart ([place] (5/325)) 2 tab Q4H PRN PO PAIN LEVEL 4 -7; Start 05/03/16 at 12:00 Hydromorphone HCl 1 mg 1 mg Q3H PRN IM PAIN LEVEL 8-10; Start 05/03/16 at 12:00 Cefazolin Sodium (Ancef 1 Gm/50 ml (Pmx)) 50 ml @ 100 mls/hr NOW IVPB ; Start 05/03/16 at 12:00; Stop 05/03/16 at 12:29 AME MESA MD May 03, 2016 12:19
--- NOTE | 2016-05-03 12:37 | OPR ---
DATE OF OPERATION: 05/03/2016 PREOPERATIVE DIAGNOSIS: Femoral neck fracture of the left hip. POSTOPERATIVE DIAGNOSIS: Femoral neck fracture of the left hip. OPERATION PERFORMED: Hemiarthroplasty of the left hip. SURGEON: Abimbola Pedroza MD ANESTHESIA: General anesthesia. PROCEDURE AND FINDINGS: Under general anesthesia, the patient was placed on right lateral decubitus position with the left side up. Usual prep and drape was done exposing the left hip and left lower extremity. Left hip was approached through the usual posterolateral oblique incision. After split ting gluteal muscles and detaching short external rotators, the hip joint was entered. On entering the joint, it was obvious that there was a femoral neck fracture. Judging from the appearance, it s eems to be old. After removing the femoral head, measurement was made and the size of the femoral h ead is about 44 to 45 mm in diameter. After cleaning acetabular cavity, trial reduction was carried out with the 45 mm bipolar trial cup and the fitting and the stability was entirely satisfactory. After packing the acetabular cavity, attention was then directed to the proximal femur. Following i nitial preparation with box osteotome and T-handled reamer, using gradually increasing size broaches , broaching of the proximal femur was carried out. With size 7 broach in, trial components were ass embled and the joint was reduced. After several trials, it was my impression that +4 neck in a high -offset setting with the 45 mm bipolar cup was the best choice. After removing all the trial components, actual components, namely a size 7 high-offset femoral stem along with the +4 neck and a 45 mm cup were inserted. The joint was reduced. Range of motion and the stability was entirely satisfactory. After irrigation and hemostasis and after reattaching shor t external rotator and capsules, further closure was carried out using #2 Vicryl for muscle and fasc ia and 2-0 Vicryl for subcutaneous tissues. Final skin closure was carried out with skin toi. Usual sterile pressure dressings were applied. The patient tolerated the entire procedure very well and was sent to the recovery room in excellent condition. Dictated By: ABIMBOLA KIRKLAND/VIOLA Conf#: [id number] DID#: [id number]
[2016-05-03 12:39] LABS: HEMATOCRIT 36.5 % (42.0-52.0); HEMOGLOBIN 11.9 g/dl (14.0-18.0)
[2016-05-03 12:40] LABS: POTASSIUM 3.8 mmol/L (3.5-5.1)
[2016-05-03 12:41] LABS: ADD UMIC YES; URINE BILIRUBIN (Dip) NEGATIVE (NEGATIVE); URINE BLOOD (Dip) 3+ (NEGATIVE); URINE COLOR LT. YELLOW (YELLOW); URINE GLUCOSE (Dip) NEGATIVE (NEGATIVE); URINE KETONES (Dip) NEGATIVE (NEGATIVE); URINE LEUKOCYTE ESTERASE (Dip) NEGATIVE (NEGATIVE); URINE NITRITE (Dip) NEGATIVE (NEGATIVE); URINE TOTAL PROTEIN (Dip) 2+ (NEGATIVE); URINE UROBILINOGEN (Dip) 1.0 E.U./dL (0.1-1.0)
[2016-05-03 12:43] LABS: CREATININE 7.13 mg/dl (0.61-1.24)
[2016-05-03 12:44] LABS: CALCIUM 8.8 mg/dl (8.4-10.2)
[2016-05-03 12:53] LABS: BACTERIA,URINE RARE; URINE RBCS >200 /HPF (0)
--- NOTE | 2016-05-03 13:28 | RADRPT ---
PROCEDURE: X-RAY PELVIS CLINICAL INDICATION: Postop left femoral fracture. TECHNIQUE: Single AP view of the pelvis. COMPARISON: No prior studies are available for comparison. FINDINGS: Patient is status post bipolar hemiarthroplasty on the left side. The bones are osteoporotic. No ot her fractures seen. There are skin toi indicating immediate postoperative state on the left marbella e. The prosthesis is in good position and alignment. IMPRESSION: 1. Good position and alignment of a left bipolar hemiarthroplasty. 2. Osteoporosis. No other fractures seen. RPTAT: XX .Kaiser Sparks MD, MD Date Time Electronically viewed and signed by .Kaiser Sparks MD, on 05/03/2016 13:28 .T/
--- NOTE | 2016-05-03 13:29 | RADRPT ---
PROCEDURE: XR Chest. CLINICAL INDICATION: Hip fracture. TECHNIQUE: Single frontal chest x-ray. COMPARISON: None. FINDINGS: With the exception of discoid atelectasis at the right lung base, the remainder of the lungs are benedict ar. The lungs are hyperinflated consistent with COPD. The heart size is normal. Atherosclerotic c hanges are seen in the aorta. No focal infiltration, free pleural fluid or pneumothorax is seen. N o evidence for rib fracture. The bones are osteoporotic.. IMPRESSION: 1. No acute cardiopulmonary process identified. 2. Aortic atherosclerosis. RPTAT: XX .Kaiser Sparks MD, Date Time Electronically viewed and signed by .Kaiser Sparks MD, on 05/03/2016 13:29 .T/
[2016-05-03] MEDS: morphine 2 MG INJ IV PRN (14:25)
--- NOTE | 2016-05-03 17:27 | PN ---
Date/Time of Note Date/Time of Note DATE: 05/03/16 TIME: 17:26 Assessment/Plan VTE Prophylaxis VTE Prophylaxis Intervention: SCD's Lines/Catheters IV Catheter Type (from Nrs): Peripheral IV Assessment/Plan Chief Complaint/Hosp Course 1. Left femoral neck fracture s/p surgical repair -Cards eval appreciated -PT per Ortho 2. ESRD with Hyperkalemia at outside facility- now stable -cont HD per Renal 3. History of hypertension-stable without Rx 4. Leukocytosis-resolved -No evidence of infection at this time PPx-SCD's Problems: Subjective 24 Hr Interval Summary Musculoskeletal: bone/joint pain Exam/Review of Systems Vital Signs Vitals Vital Signs Date Time Temp Pulse Resp B/P Pulse Ox O2 Delivery O2 Flow Rate FiO2 05/03/16 14:29 98.1 80 18 119/83 95 05/03/16 12:46 Nasal Cannula 05/03/16 12:34 2.0 Intake and Output 05/02/16 05/02/16 05/03/16 15:00 23:00 07:00 Intake Total 500 ml 580 ml Output Total 2500 ml 250 ml Balance -2000 ml 330 ml Exam Constitutional: alert, oriented Respiratory: clear to auscultation Cardiovascular: regular rate and rhythm Gastrointestinal: soft, No distended Musculoskeletal: nl extremities to inspection Results Result Diagram: 05/03/16 1226 05/03/16 1226 Results 24 hrs Laboratory Tests Test 05/03/16 05:18 05/03/16 12:21 05/03/16 12:26 Anion Gap 20 H 20 H Basophils # 0.0 Basophils % 0.2 Blood Urea Nitrogen 60 H 66 H Calcium Level 9.3 8.8 Carbon Dioxide Level 31 28 Chloride Level 95 L 98 Creatinine 6.77 H 7.13 H Eosinophils # 0.2 Eosinophils % 2.5 Glucose Level 110 121 Hematocrit 39.0 L 36.5 L Hemoglobin 12.8 L 11.9 L Lymphocytes # 0.6 L Lymphocytes % 7.2 L Mean Corpuscular Hemoglobin 30.0 Mean Corpuscular Hemoglobin Concent 32.8 Mean Corpuscular Volume 91.5 Mean Platelet Volume 9.9 Monocytes # 0.9 Monocytes % 10.4 Neutrophils # 7.0 Neutrophils % 79.2 H Nucleated Red Blood Cells # 0.0 Nucleated Red Blood Cells % 0.0 Platelet Count 396 Potassium Level 3.7 3.8 Red Blood Count 4.26 L Red Cell Distribution Width 13.1 Sodium Level 142 142 White Blood Count 8.8 Urine Bacteria RARE Urine Bilirubin NEGATIVE Urine Clarity SLIGHTLY CLOUDY Urine Color LT. YELLOW Urine Epithelial Cells FEW Urine Glucose NEGATIVE Urine Hemoglobin 3+ H Urine Ketones NEGATIVE Urine Leukocyte Esterase NEGATIVE Urine Microscopic RBC >200 Urine Microscopic WBC 2-5 Urine Nitrite NEGATIVE Urine Specific [place] 1.015 Urine Total Protein 2+ H Urine Urobilinogen 1.0 E.U./dL Urine pH 8.0 Medications Medications Current Medications Ondansetron HCl (Zofran Inj) 4 mg Q6H PRN IV NAUSEA AND/OR VOMITING; Start 05/01 at 18:30 Acetaminophen (Tylenol Tab) 650 mg Q6H PRN PO PAIN LEVEL 1-3 OR FEVER; Start at 18:30 Acetaminophen/ Hydrocodone Bitart ([place] (5/325)) 1 tab Q6H PRN PO MODERATE PAIN LEVEL 4-6; Start 05/01/16 at 18:30 Morphine Sulfate (morphine) 2 mg Q4H PRN IV SEVERE PAIN LEVEL 7-10 Last administered on 05/03/16 14:25; Admin Dose 2 MG; Start 05/01/16 at 18:30 Docusate Sodium (Colace) 100 mg Q12H PRN PO CONSTIPATION; Start 05/01/16 at 18: 30 Magnesium Hydroxide 30 ml 30 ml DAILY PRN PO CONSTIPATION; Start 05/01/16 at 18: 30 Dextrose/Sodium Chloride (D5-1/2ns) 1,000 ml @ 125 mls/hr Q8H IV ; Start at 11:37 Acetaminophen/ Hydrocodone Bitart ([place] (5/325)) 1 tab Q4H PRN PO PAIN LEVEL 1 -3; Start 05/03/16 at 12:00 Acetaminophen/ Hydrocodone Bitart ([place] (5/325)) 2 tab Q4H PRN PO PAIN LEVEL 4 -7; Start 05/03/16 at 12:00 Hydromorphone HCl (Dilaudid) 1 mg Q3H PRN IM PAIN LEVEL 8-10; Start 05/03/16 at 12:00 TERESA LEA May 03, 2016 17:27
[2016-05-04] VITALS (10 sets, daily range): BP systolic 91–130; BP diastolic 62–86; PULSE 98–107; RESP 16–18
[2016-05-04] MEDS: morphine 2 MG INJ IV PRN ×2 (01:37→08:04)
[2016-05-04 06:37] LABS: ADD SCAN DIFF NO
[2016-05-04 06:50] LABS: POTASSIUM 4.8 mmol/L (3.5-5.1)
[2016-05-04 06:52] LABS: CREATININE 8.04 mg/dl (0.61-1.24)
[2016-05-04 06:53] LABS: ABNORMAL IP MESSAGE 1; BASOPHILS % 0.2 % (0.0-2.0); CALCIUM 8.7 mg/dl (8.4-10.2); EOSINOPHILS # 0.1 10^3/ul (0.0-0.5); EOSINOPHILS % 0.6 % (0.0-7.0); HEMATOCRIT 35.4 % (42.0-52.0); HEMOGLOBIN 11.5 g/dl (14.0-18.0); LYMPHOCYTES # 0.5 10^3/ul (0.8-2.9); LYMPHOCYTES % 4.7 % (15.0-51.0); MEAN CORPUSCULAR HEMOGLOBIN 29.9 pg (29.0-33.0); MEAN CORPUSCULAR HGB CONC 32.5 g/dl (32.0-37.0); MEAN CORPUSCULAR VOLUME 92.2 fl (82.0-101.0); MEAN PLATELET VOLUME 10.3 fl (7.4-10.4); MONOCYTE # 1.4 10^3/ul (0.3-0.9); MONOCYTES % 13.1 % (0.0-11.0); NEUTROPHIL # 8.8 10^3/ul (1.6-7.5); NEUTROPHILS % 80.8 % (39.0-77.0); PLATELET COUNT 347 10^3/UL (140-415); RED BLOOD COUNT 3.84 10^6/ul (4.70-6.10); RED CELL DISTRIBUTION WIDTH 13.3 % (11.5-14.5); WHITE BLOOD COUNT 10.9 10^3/ul (4.8-10.8)
[2016-05-04] MEDS ORDERED: ENOXAPARIN 40 MG/0.4 ML SYG SC SCH (09:00)
--- NOTE | 2016-05-04 11:20 | CONS ---
Date/Time of Note Date/Time of Note DATE: 05/04/16 TIME: 11:16 Assessment/Plan Assessment/Plan Additional Assessment/Plan 1. Left hip femoral neck fracture s/p left hip hemiarthroplasty, POD # 1 2. Acute hyperkalemia. The patient received dialysis last night at the [facility] because it was severely elevated. 3. History of end-stage renal disease on hemodialysis Thursday, and Thursday at the dialysis unit. 4. History of polycystic kidney disease has etiology for end-stage renal disease. 5. History of hypertension, not on any medication. 6. Leukocytosis secondary to possibly reactive leukocytosis. PLAN: pt is s/p left hip hemiarthroplasty, plan for HD today and then we wiil keep him on TTS Schedule will follow up Consultation Date/Type/Reason Admit Date/Time May 01, 2016 at 16:48 Initial Consult Date April Type of Consultation: NEPHROLOGY Reason for Consultation acute hyperkalemia,ESRD on HD, presented with hip fracture Referring Provider: TERESA LEA 24 HR Interval Summary Free Text/Dictation acute hyperkalemia,ESRD on HD, presented with hip fracture Exam/Review of Systems Vital Signs Vitals Vital Signs Date Time Temp Pulse Resp B/P Pulse Ox O2 Delivery O2 Flow Rate FiO2 05/04/16 07:17 98.4 101 16 126/86 98 05/03/16 20:00 Nasal Cannula 2.0 Intake and Output 05/03/16 05/03/16 05/04/16 15:00 23:00 07:00 Intake Total 900 ml 500 ml Output Total 375 ml 100 ml Balance 525 ml 400 ml Exam HEENT: Normal. Oropharynx clear. NECK: Supple, no JVD, no lymphadenopathy. LUNGS: Clear to auscultation. No crackles, no wheezes. HEART: S1, S2, with regular rhythm, tachycardia. ABDOMEN: Soft, nontender, nondistended. Bowel sounds are normal. EXTREMITIES: left hip toi with dressing SKIN: The patient has AV fistula for dialysis access. Results Result Diagram: 05/04/16 0458 05/04/16 0458 Results 24 hrs Laboratory Tests Test 05/03/16 12:21 05/03/16 12:26 05/04/16 04:58 Urine Bacteria RARE Urine Bilirubin NEGATIVE Urine Clarity SLIGHTLY CLOUDY Urine Color LT. YELLOW Urine Epithelial Cells FEW Urine Glucose NEGATIVE Urine Hemoglobin 3+ H Urine Ketones NEGATIVE Urine Leukocyte Esterase NEGATIVE Urine Microscopic RBC >200 Urine Microscopic WBC 2-5 Urine Nitrite NEGATIVE Urine Specific [place] 1.015 Urine Total Protein 2+ H Urine Urobilinogen 1.0 E.U./dL Urine pH 8.0 Anion Gap 20 H 24 H Blood Urea Nitrogen 66 H 76 H Calcium Level 8.8 8.7 Carbon Dioxide Level 28 27 Chloride Level 98 91 L Creatinine 7.13 H 8.04 H Glucose Level 121 144 Hematocrit 36.5 L 35.4 L Hemoglobin 11.9 L 11.5 L Potassium Level 3.8 4.8 Sodium Level 142 137 Basophils # 0.0 Basophils % 0.2 Eosinophils # 0.1 Eosinophils % 0.6 Lymphocytes # 0.5 L Lymphocytes % 4.7 L Mean Corpuscular Hemoglobin 29.9 Mean Corpuscular Hemoglobin Concent 32.5 Mean Corpuscular Volume 92.2 Mean Platelet Volume 10.3 Monocytes # 1.4 H Monocytes % 13.1 H Neutrophils # 8.8 H Neutrophils % 80.8 H Nucleated Red Blood Cells # 0.0 Nucleated Red Blood Cells % 0.0 Platelet Count 347 Red Blood Count 3.84 L Red Cell Distribution Width 13.3 White Blood Count 10.9 #H Medications Medications Current Medications Ondansetron HCl (Zofran Inj) 4 mg Q6H PRN IV NAUSEA AND/OR VOMITING; Start 05/01 at 18:30 Acetaminophen (Tylenol Tab) 650 mg Q6H PRN PO PAIN LEVEL 1-3 OR FEVER; Start at 18:30 Acetaminophen/ Hydrocodone Bitart ([place] (5/325)) 1 tab Q6H PRN PO MODERATE PAIN LEVEL 4-6; Start 05/01/16 at 18:30 Morphine Sulfate (morphine) 2 mg Q4H PRN IV SEVERE PAIN LEVEL 7-10 Last administered on 05/04/16 08:04; Admin Dose 2 MG; Start 05/01/16 at 18:30 Docusate Sodium (Colace) 100 mg Q12H PRN PO CONSTIPATION Last administered on 10:00; Admin Dose 100 MG; Start 05/01/16 at 18:30 Magnesium Hydroxide (Milk Of Mag) 30 ml DAILY PRN PO CONSTIPATION Last administered on 05/04/16 10:00; Admin Dose 30 ML; Start 05/01/16 at 18:30 Acetaminophen/ Hydrocodone Bitart ([place] (5/325)) 1 tab Q4H PRN PO PAIN LEVEL 1 -3 Last administered on 05/03/16t 21:07; Admin Dose 1 TAB; Start 05/03/16 at 12:00 Acetaminophen/ Hydrocodone Bitart ([place] (5/325)) 2 tab Q4H PRN PO PAIN LEVEL 4 -7; Start 05/03/16 at 12:00 Hydromorphone HCl (Dilaudid) 1 mg Q3H PRN IM PAIN LEVEL 8-10; Start 05/03/16 at 12:00 AME MESA MD May 04, 2016 11:20
[2016-05-04] MEDS: HYDROCODONE/APAP (5/325) TAB PO PRN (11:38)
--- NOTE | 2016-05-04 14:48 | PN ---
Date/Time of Note Date/Time of Note DATE: 05/04/16 TIME: 14:45 Assessment/Plan VTE Prophylaxis VTE Prophylaxis Intervention: SCD's Lines/Catheters IV [facility] [place] Assessment/Plan Chief Complaint/Hosp Course 1. Left femoral neck fracture s/p surgical repair -Cards eval appreciated -PT eval, F/U with dispo recs 2. ESRD with Hyperkalemia at outside facility- now stable -cont HD per Renal 3. History of hypertension-stable without Rx 4. Leukocytosis-resolved -No evidence of infection at this time PPx-SCD's Problems: Subjective 24 Hr Interval Summary Constitutional: no complaints Exam/Review of Systems Vital Signs Vitals Vital Signs Date Time Temp Pulse Resp B/P Pulse Ox O2 Delivery O2 Flow Rate FiO2 05/04/16 14:30 102 14 05/04/16 07:17 98.4 126/86 98 05/03/16 20:00 Nasal Cannula 2.0 Intake and Output 05/03/16 05/03/16 05/04/16 15:00 23:00 07:00 Intake Total 900 ml 500 ml Output Total 375 ml 100 ml Balance 525 ml 400 ml Exam Constitutional: alert Respiratory: clear to auscultation Cardiovascular: regular rate and rhythm Gastrointestinal: soft, No distended Musculoskeletal: nl extremities to inspection Results Result Diagram: 05/04/16 0458 05/04/16 0458 Results 24 hrs Laboratory Tests Test 05/04/16 04:58 Anion Gap 24 H Basophils # 0.0 Basophils % 0.2 Blood Urea Nitrogen 76 H Calcium Level 8.7 Carbon Dioxide Level 27 Chloride Level 91 L Creatinine 8.04 H Eosinophils # 0.1 Eosinophils % 0.6 Glucose Level 144 Hematocrit 35.4 L Hemoglobin 11.5 L Lymphocytes # 0.5 L Lymphocytes % 4.7 L Mean Corpuscular Hemoglobin 29.9 Mean Corpuscular Hemoglobin Concent 32.5 Mean Corpuscular Volume 92.2 Mean Platelet Volume 10.3 Monocytes # 1.4 H Monocytes % 13.1 H Neutrophils # 8.8 H Neutrophils % 80.8 H Nucleated Red Blood Cells # 0.0 Nucleated Red Blood Cells % 0.0 Platelet Count 347 Potassium Level 4.8 Red Blood Count 3.84 L Red Cell Distribution Width 13.3 Sodium Level 137 White Blood Count 10.9 #H Medications Medications Current Medications Ondansetron HCl (Zofran Inj) 4 mg Q6H PRN IV NAUSEA AND/OR VOMITING; Start 05/01 at 18:30 Acetaminophen (Tylenol Tab) 650 mg Q6H PRN PO PAIN LEVEL 1-3 OR FEVER; Start at 18:30 Acetaminophen/ Hydrocodone Bitart ([place] (5/325)) 1 tab Q6H PRN PO MODERATE PAIN LEVEL 4-6; Start 05/01/16 at 18:30 Morphine Sulfate (morphine) 2 mg Q4H PRN IV SEVERE PAIN LEVEL 7-10 Last administered on 05/04/16 08:04; Admin Dose 2 MG; Start 05/01/16 at 18:30 Docusate Sodium (Colace) 100 mg Q12H PRN PO CONSTIPATION Last administered on 10:00; Admin Dose 100 MG; Start 05/01/16 at 18:30 Magnesium Hydroxide (Milk Of Mag) 30 ml DAILY PRN PO CONSTIPATION Last administered on 05/04/16 10:00; Admin Dose 30 ML; Start 05/01/16 at 18:30 Acetaminophen/ Hydrocodone Bitart ([place] (5/325)) 1 tab Q4H PRN PO PAIN LEVEL 1 -3 Last administered on 05/03/16 21:07; Admin Dose 1 TAB; Start 05/03/16 at 12:00 Acetaminophen/ Hydrocodone Bitart ([place] (5/325)) 2 tab Q4H PRN PO PAIN LEVEL 4 -7 Last administered on 05/04/16 11:38; Admin Dose 2 TAB; Start 05/03/16 at 12:00 Hydromorphone HCl (Dilaudid) 1 mg Q3H PRN IM PAIN LEVEL 8-10; Start 05/03/16 at 12:00 TERESA LEA May 04, 2016 14:48
--- NOTE | 2016-05-04 18:29 | PN ---
DATE: 05/04/2016 First postop day. Afebrile. H and H is 11.5/35.4. No signs of neurovascular compromise. X-ray sh ows satisfactory position of the femoral component. Bone scan is reportedly showing multiple areas of increased uptake including over both shoulders, le ft anterior ribcage, right posterior sixth rib and mid cervical spine and thoracic spine and both th e sacroiliac joints. No pathology report is available yet. Because of the unusual history of his t rauma, including painful limit of motion of the left hip for about 15 days prior to his admission, andrés kinsey may need some diagnostic workups to rule out possible metastatic CA. Dictated By: ABIMBOLA COY MD IK/NTS Conf#: [id number] DID#: [id number] CC: CIRA ROBBINS MD;*EndCC*
[2016-05-05] MEDS: HYDROCODONE/APAP (5/325) TAB PO PRN ×3 (02:29→18:09)
[2016-05-05 06:01] LABS: ADD SCAN DIFF NO
[2016-05-05 06:06] LABS: BASOPHILS % 0.1 % (0.0-2.0); EOSINOPHILS # 0.2 10^3/ul (0.0-0.5); EOSINOPHILS % 2.1 % (0.0-7.0); HEMATOCRIT 32.2 % (42.0-52.0); HEMOGLOBIN 10.3 g/dl (14.0-18.0); LYMPHOCYTES # 0.8 10^3/ul (0.8-2.9); LYMPHOCYTES % 7.3 % (15.0-51.0); MEAN CORPUSCULAR HEMOGLOBIN 29.9 pg (29.0-33.0); MEAN CORPUSCULAR VOLUME 93.6 fl (82.0-101.0); MEAN PLATELET VOLUME 10.1 fl (7.4-10.4); MONOCYTE # 1.4 10^3/ul (0.3-0.9); MONOCYTES % 13.6 % (0.0-11.0); NEUTROPHIL # 7.9 10^3/ul (1.6-7.5); NEUTROPHILS % 76.1 % (39.0-77.0); NUCLEATED RED BLOOD CELLS% 0.2 /100WBC (0.0-0.0); PLATELET COUNT 339 10^3/UL (140-415); RED BLOOD COUNT 3.44 10^6/ul (4.70-6.10); RED CELL DISTRIBUTION WIDTH 13.2 % (11.5-14.5); WHITE BLOOD COUNT 10.3 10^3/ul (4.8-10.8)
[2016-05-05 06:25] LABS: POTASSIUM 5.1 mmol/L (3.5-5.1)
[2016-05-05 06:28] LABS: CREATININE 5.51 mg/dl (0.61-1.24)
[2016-05-05 06:29] LABS: CALCIUM 8.7 mg/dl (8.4-10.2)
[2016-05-05 07:38] VITALS: BP 103/70; RESP 21
--- NOTE | 2016-05-05 10:27 | CONS ---
Date/Time of Note Date/Time of Note DATE: 05/05/16 TIME: 10:26 Assessment/Plan Assessment/Plan Additional Assessment/Plan 1. Left hip femoral neck fracture s/p left hip hemiarthroplasty, POD # 1 2. Acute hyperkalemia. The patient received dialysis last night at the [facility] because it was severely elevated. 3. History of end-stage renal disease on hemodialysis Thursday, and Thursday at the dialysis unit. 4. History of polycystic kidney disease has etiology for end-stage renal disease. 5. History of hypertension, not on any medication. 6. Leukocytosis secondary to possibly reactive leukocytosis. PLAN: pt is s/p left hip hemiarthroplasty, plan for HD tomorrow and then we wiil keep him on TTS Schedule will follow up Consultation Date/Type/Reason Admit Date/Time May 01, 2016 at 16:48 Initial Consult Date April Type of Consultation: NEPHROLOGY Reason for Consultation ESRD on HD with hyperkalemia, hip fracture Referring Provider: TERESA LEA 24 HR Interval Summary Free Text/Dictation HD tomorrow, pain controlled Exam/Review of Systems Vital Signs Vitals Vital Signs Date Time Temp Pulse Resp B/P Pulse Ox O2 Delivery O2 Flow Rate FiO2 05/05/16 07:38 98.1 95 21 103/70 96 05/03/16 20:00 Nasal Cannula 2.0 Intake and Output 05/04/16 05/04/16 05/05/16 15:00 23:00 07:00 Intake Total 500 ml 340 ml 400 ml Output Total 1500 ml 50 ml Balance -1000 ml 290 ml 400 ml Exam HEENT: Normal. Oropharynx clear. NECK: Supple, no JVD, no lymphadenopathy. LUNGS: Clear to auscultation. No crackles, no wheezes. HEART: S1, S2, with regular rhythm, tachycardia. ABDOMEN: Soft, nontender, nondistended. Bowel sounds are normal. EXTREMITIES: left hip toi with dressing SKIN: The patient has AV fistula for dialysis access. Results Result Diagram: 05/05/16 0515 05/05/16 0515 Results 24 hrs Laboratory Tests Test 05/05/16 05:15 Anion Gap 19 H Basophils # 0.0 Basophils % 0.1 Blood Urea Nitrogen 49 #H Calcium Level 8.7 Carbon Dioxide Level 32 H Chloride Level 93 L Creatinine 5.51 #H Eosinophils # 0.2 Eosinophils % 2.1 Glucose Level 104 # Hematocrit 32.2 L Hemoglobin 10.3 L Lymphocytes # 0.8 Lymphocytes % 7.3 L Mean Corpuscular Hemoglobin 29.9 Mean Corpuscular Hemoglobin Concent 32.0 Mean Corpuscular Volume 93.6 Mean Platelet Volume 10.1 Monocytes # 1.4 H Monocytes % 13.6 H Neutrophils # 7.9 H Neutrophils % 76.1 Nucleated Red Blood Cells # 0.0 Nucleated Red Blood Cells % 0.2 H Platelet Count 339 Potassium Level 5.1 Red Blood Count 3.44 L Red Cell Distribution Width 13.2 Sodium Level 139 White Blood Count 10.3 Medications Medications Current Medications Ondansetron HCl (Zofran Inj) 4 mg Q6H PRN IV NAUSEA AND/OR VOMITING; Start 05/01 at 18:30 Acetaminophen (Tylenol Tab) 650 mg Q6H PRN PO PAIN LEVEL 1-3 OR FEVER; Start at 18:30 Acetaminophen/ Hydrocodone Bitart ([place] (5/325)) 1 tab Q6H PRN PO MODERATE PAIN LEVEL 4-6; Start 05/01/16 at 18:30 Morphine Sulfate (morphine) 2 mg Q4H PRN IV SEVERE PAIN LEVEL 7-10 Last administered on 05/04/16 08:04; Admin Dose 2 MG; Start 05/01/16 at 18:30 Docusate Sodium (Colace) 100 mg Q12H PRN PO CONSTIPATION Last administered on 10:00; Admin Dose 100 MG; Start 05/01/16 at 18:30 Magnesium Hydroxide (Milk Of Mag) 30 ml DAILY PRN PO CONSTIPATION Last administered on 05/04/16 10:00; Admin Dose 30 ML; Start 05/01/16 at 18:30 Acetaminophen/ Hydrocodone Bitart ([place] (5/325)) 1 tab Q4H PRN PO PAIN LEVEL 1 -3 Last administered on 05/03/16 21:07; Admin Dose 1 TAB; Start 05/03/16 at 12:00 Acetaminophen/ Hydrocodone Bitart ([place] (5/325)) 2 tab Q4H PRN PO PAIN LEVEL 4 -7 Last administered on 05/05/16 10:00; Admin Dose 2 TAB; Start 05/03/16 at 12:00 Hydromorphone HCl (Dilaudid) 1 mg Q3H PRN IM PAIN LEVEL 8-10; Start 05/03/16 at 12:00 AME MESA MD May 05, 2016 10:27
--- NOTE | 2016-05-05 12:04 | PDOCDIS ---
Discharge Instructions CONDITION Patient Condition: Good HOME CARE INSTRUCTIONS: Special Diet: Renal Diet ACTIVITY: Activity Restrictions: Special Exercises FOLLOW UP/APPOINTMENTS Appointments Follow up with Dr. Jacky Pedroza in 1-2 weeks CIRA ROBBINS MD May 05, 2016 12:04
[2016-05-05] MEDS ORDERED: ACET325T33 PO (12:06)
[2016-05-05] MEDS ORDERED: HYDR-3498 PO (12:06)
[2016-05-05] MEDS ORDERED: CALC667T2 PO (12:06)
[2016-05-05] MEDS ORDERED: DOCU-216 PO (12:06)
--- NOTE | 2016-05-05 14:15 | CONS ---
Date/Time of Note Date/Time of Note DATE: 05/05/16 TIME: 14:04 Assessment/Plan Assessment/Plan Chief Complaint/Hosp Course 70 yo male s/ left hip femoral neck fracture s/p left hip hemiarthroplasty who had an usual history of a sudden fall. A bone scan was done given the concern for pathologic fracture and this revealed numerous areas of increased tracer activity in the skeleton that represent post-traumatic changes or metastatic cancer -need to r/o monoclonal gammopathy given concern for multiple myeloma. SPEP, serum immunofixation, [place]/ Lambda LC ratio all ordered -PSA ordered given possible underlying metastatic prostate cancer -f/u surgical pathology -cont HD per renal for ESRD secondary to polycystic kidney disease. -leukocytosis is likely reactive and is currently stable. will continue to follow Approximately 40 min were spent at patient's bedside and in coordination of his care Problems: Consultation Date/Type/Reason Admit Date/Time May 01, 2016 at 16:48 Date of Consultation: May 05, 2016 Type of Consultation: Oncology Reason for Consultation concern for multiple myeloma Referring Provider: TERESA LEA Hx of Present Illness 70-year-old male multiple medical problems including history of hypertension, end-stage renal disease on dialysis for the past 2 years. The patient states that he was mopping the floor when he suddenly fell on his left side. He initially presented to [facility] where x-ray showed left hip fracture. He has since been diagnosed with a femoral neck fracture of the left hip and is now s/p hemiarthroplasty of the left hip. Given patient's history a bone scan was done. This demonstrated multiple areas of increased uptake including over both shoulders, left anterior ribcage, right posterior sixth rib and mid cervical spine and thoracic spine and both the sacroiliac joints. Pathology from the surgery is not yet available. Constitutional: no complaints Eyes: no complaints Respiratory: no complaints Gastrointestinal: no complaints Genitourinary: no complaints Musculoskeletal: bone/joint pain Skin: no complaints Past Medical History Hypertension, end-stage renal disease, likely from chronic hypertension. The patient has been on dialysis for the past several years. Medical History: hypertension, renal disease Past Surgical History s/p L hip hemiarthroplasty Family History Significant Family History: no pertinent family hx Social History Alcohol Use: none Smoking Status: Former smoker Drug Use: none Exam/Review of Systems Vital Signs Vitals Vital Signs Date Time Temp Pulse Resp B/P Pulse Ox O2 Delivery O2 Flow Rate FiO2 05/05/16 07:38 98.1 95 21 103/70 96 05/03/16 20:00 Nasal Cannula 2.0 Intake and Output 05/04/16 05/04/16 05/05/16 15:00 23:00 07:00 Intake Total 500 ml 340 ml 400 ml Output Total 1500 ml 50 ml Balance -1000 ml 290 ml 400 ml Exam Constitutional: alert, frail Psych: nl mood/affect, no complaints Head: normocephalic Eyes: nl conjunctiva ENMT: nl external ears & nose Neck: non-tender, supple Respiratory: clear to auscultation, normal air movement Cardiovascular: nl pulses, regular rate and rhythm Musculoskeletal: nl extremities to inspection, other (s/p L hip arthoplasty. no swelling) Results Result Diagram: 05/05/1615 05/05/1615 Results 24 hrs Laboratory Tests Test 05/05/16 05:15 Anion Gap 19 H Basophils # 0.0 Basophils % 0.1 Blood Urea Nitrogen 49 #H Calcium Level 8.7 Carbon Dioxide Level 32 H Chloride Level 93 L Creatinine 5.51 #H Eosinophils # 0.2 Eosinophils % 2.1 Glucose Level 104 # Hematocrit 32.2 L Hemoglobin 10.3 L Lymphocytes # 0.8 Lymphocytes % 7.3 L Mean Corpuscular Hemoglobin 29.9 Mean Corpuscular Hemoglobin Concent 32.0 Mean Corpuscular Volume 93.6 Mean Platelet Volume 10.1 Monocytes # 1.4 H Monocytes % 13.6 H Neutrophils # 7.9 H Neutrophils % 76.1 Nucleated Red Blood Cells # 0.0 Nucleated Red Blood Cells % 0.2 H Platelet Count 339 Potassium Level 5.1 Red Blood Count 3.44 L Red Cell Distribution Width 13.2 Sodium Level 139 White Blood Count 10.3 Medications Medications Current Medications Ondansetron HCl (Zofran Inj) 4 mg Q6H PRN IV NAUSEA AND/OR VOMITING; Start 05/01 at 18:30 Acetaminophen (Tylenol Tab) 650 mg Q6H PRN PO PAIN LEVEL 1-3 OR FEVER; Start at 18:30 Acetaminophen/ Hydrocodone Bitart ([place] (5/325)) 1 tab Q6H PRN PO MODERATE PAIN LEVEL 4-6; Start 05/01/16 at 18:30 Morphine Sulfate (morphine) 2 mg Q4H PRN IV SEVERE PAIN LEVEL 7-10 Last administered on 05/04/16 08:04; Admin Dose 2 MG; Start 05/01/16 at 18:30 Docusate Sodium (Colace) 100 mg Q12H PRN PO CONSTIPATION Last administered on 10:00; Admin Dose 100 MG; Start 05/01/16 at 18:30 Magnesium Hydroxide (Milk Of Mag) 30 ml DAILY PRN PO CONSTIPATION Last administered on 05/04/16 10:00; Admin Dose 30 ML; Start 05/01/16 at 18:30 Acetaminophen/ Hydrocodone Bitart ([place] (5/325)) 1 tab Q4H PRN PO PAIN LEVEL 1 -3 Last administered on 05/03/16 21:07; Admin Dose 1 TAB; Start 05/03/16 at 12:00 Acetaminophen/ Hydrocodone Bitart ([place] (5/325)) 2 tab Q4H PRN PO PAIN LEVEL 4 -7 Last administered on 05/05/16 10:00; Admin Dose 2 TAB; Start 05/03/16 at 12:00 Hydromorphone HCl (Dilaudid) 1 mg Q3H PRN IM PAIN LEVEL 8-10; Start 05/03/16 at 12:00 STEPHEN ZAZUETA M.D. May 05, 2016 14:15
[2016-05-05 17:48] LABS: IMMUNOGLOBULIN G 612 mg/dl (700-1600)
[2016-05-05 17:49] LABS: IMMUNOGLOBULIN M 30 mg/dl (40-230)
[2016-05-05 17:50] LABS: IMMUNOGLOBULIN A 171 mg/dl (70-400)
--- NOTE | 2016-05-06 04:09 | DS ---
DATE OF ADMISSION: 05/01/2016 DATE OF DISCHARGE: 05/05/2016 CONSULTANTS: 1. Dr. Nick Pedroza. 2. Dr. Giancarlo Mccabe. 3. Dr. Jerry Che. PROCEDURES: 1. A 2D echocardiogram which demonstrated overall normal left ventricular systolic function, not al l segments are visualized, normal left ventricular cavity size, mild conservative left ventricular h ypertrophy, ejection fraction estimated at 60%, stage I diastolic dysfunction, normal right ventricl e size. Left and right atrium are normal. No significant valvular stenosis or regurgitation. Normal pericardium with no significant pericardial effusion. 2. Hemiarthroplasty of the left hip. DIAGNOSES 1. Left femoral neck fracture of the left hip, status post hemiarthroplasty of the left hip. The p atient will be transferred to long-term facility for physical therapy. Continue pain medicati on. 2. Essential hypertension, well controlled. 3. End-stage renal disease on hemodialysis. 4. Polycystic kidney disease. MEDICATIONS: 1. Tylenol. 2. [place]. 3. Zofran. 4. Colace. 5. PhosLo. 6. Metoprolol. DIET: Renal. FOLLOWUP: 1. MRI of the lumbosacral spine in 2 weeks with contrast. 2. Follow with Dr. Nick Pedroza in 2 weeks. 3. Hemodialysis on Tuesdays, , and Saturdays. HOSPITAL COURSE: This is a pleasant 70-year-old gentleman with history of hypertension, end-stage r enal disease, polycystic kidney disease on hemodialysis for the past several years. The patient was mopping the floor on 05/01/2016 and fell on his left side. He was seen at [facility] and x-r ay showed left hip fracture. The patient was transferred to [facility] secondary to insurance purposes. He was seen and evaluated by the meringuer with a 2D echocardiogram which showed normal ejection fraction with stage I diastolic dysfunction. Orthopedic surgeon was alexis bob. After evaluation by orthopedic surgeon, on 05/03/2016, the patient was taken to the OR for hemia rthroplasty of the left hip. The patient tolerated the procedure well and was admitted to med/surg where she was seen and evaluated by the medical team and nephrology, which he has been able to obtai n his hemodialysis Tuesdays, , and Saturdays. Today, the patient's vitals have been stable with temperature of 98.1, pulse 95, respiration 21, blo od pressure 103/70, oxygen saturation 96%. The patient on the imaging and the bone scan showed norm al area of increased tracer activity of skeleton described at both shoulders, left anterior rib cage , right posterior approximately 6th rib midcervical spine, mildly increased activity also is seen i n the left hip region. Correlation with x-ray which was done showed, with the exception of the disc oid atelectasis at the right lung base, but the remainder of the lung was clear. The heart size was normal. Atherosclerotic changes were seen in the aorta; no focal infiltration, free pleural fluid of the pneumothorax was seen, with no evidence of rib fracture. The bones are osteoporotic. No acu te cardiopulmonary process was identified. The pelvic x-ray showed good position and alignment of th e left bipolar hemiarthroplasty osteoporosis. The prosthesis is in good position and alignment. At this time, after speaking to radiology petroleum production engineer today, no other procedure needed, although the patie nt may need an MRI of her hip in 3 to 4 weeks after the healing of the left hip has been in process. The patient will be seen and evaluated by an orthopedic surgeon as an outpatient and has been ashwin red by the orthopedic surgeon and the patient will be partial weightbearing on the left side. CONDITION AT TIME OF DISCHARGE: Stable. LABORATORY: WBC 10.3, hemoglobin 10.3, hematocrit 32.2, platelets 339. Sodium 139, potassium 4.1, chloride 93, bicarbonate 32, BUN 49, creatinine 5.51, glucose 104, calcium 8.7. Dictated By: CIRA MEDLEY/VIOLA Conf#: [id number] DID#: [id number]
[2016-05-07 06:28] LABS: PROTEIN, TOTAL 5.3 g/dL (6.1-8.1)
[2016-05-07 23:12] LABS: ALBUMIN 2.5 g/dL (3.8-4.8)
== END 2016-05-05 19:35 | DRG 469 ==
LOC: MS2 16:48 → MERGE 16:48
PROVIDERS: ADMIT Family Medicine; ATTEND Family Medicine
PROC: 5A1D60Z (ICD-10-PCS; 2016-05-01)
PROC: 0SRB01Z Replacement of Left Hip Joint with Metal Synthetic Substitute, Open Approach (ICD-10-PCS; principal; 2016-05-03 09:30)
DX: S72.002A Fracture of unspecified part of neck of left femur, initial encounter for closed fracture (principal); N18.6 End stage renal disease; I12.0 Hypertensive chronic kidney disease with stage 5 chronic kidney disease or end stage renal disease; E87.5 Hyperkalemia; D72.829 Elevated white blood cell count, unspecified; Z99.2 Dependence on renal dialysis; Y93.E5 Activity, floor mopping and cleaning; W18.30XA Fall on same level, unspecified, initial encounter; Y92.009 Unspecified place in unspecified non-institutional (private) residence as the place of occurrence of the external cause
CPT/HCPCS: 71010; 72170; 78306; 80048; 81001; 81003; 82784; 83036; 83735; 84100; 84153; 84154; 84155; 84165; 85014; 85018; 85025; 85610; 85730; 86320; 86850; 86900; 86901; 87081; 87086; 88304; 88311; 90935; 93005; 93306; 97162; A9503; C1776; J0690; J2250; J2270; J2405; J3010; J7042

== ENCOUNTER 2016-07-17 13:07 | Inpatient (IN) | payer OTHER ==
[~2016-07-17] VITALS: Ht 170.2 cm; Wt 56.6 kg
[~2016-07-17 13:07] MED LIST: ACET325T33 PO; CALC667T2 PO; DOCU-216 PO; HYDR-3498 PO
[2016-07-17] MEDS ORDERED: SOD CHLORIDE 0.9% 500 ML IV STA (13:35)
[2016-07-17] MEDS ORDERED: CARV6.2579 PO (13:49)
--- NOTE | 2016-07-17 13:49 | ERA ---
ER Documentation Chief Complaint Date/Time DATE: 07/17/16 TIME: 13:47 Chief Complaint right hip pain after fall today HPI funeral assistant used. A 70-year-old male presents with right hip pain after a fall. Just prior to arrival patient had a mechanical trip and fall onto his right hip. He denies hitting his head or losing consciousness, no prodrome of chest pain or shortness of breath, no neck pain. The patient had dialysis earlier today, full course. The patient now describes moderate to severe right hip pain that is worse with movement. He has not been able to ambulate after the fall. The pain is worse with movement, constant and 8 out of 10. ROS All systems reviewed and are negative except as per history of present illness. Medications Home Meds Reported Medications Carvedilol* (Carvedilol*) 6.25 Mg Tablet, 6.25 MG PO BID, #60 TAB 07/17/16 Discontinued Scripts Calcium Acetate* (Phoslo*) 667 Mg Tablet, 667 MG PO WITH MEALS, #1 TAB Prov:CIRA ROBBINS MD 05/05/16 Hydrocodone Bit-Acetaminophen (Hydrocodone Bit-APAP) 5-325MG Tablet, 1 TAB PO Q6H Y for MODERATE PAIN LEVEL 4-6 for 1 Day, TAB Prov:CIRA ROBBINS MD 05/05/16 Docusate Sodium (Dok) 100 Mg Capsule, 100 MG PO Q12H Y for CONSTIPATION for 1 Day, CAP Prov:CIRA ROBBINS MD 05/05/16 Acetaminophen* (Tylenol*) 325 Mg Tablet, 650 MG PO Q6H Y for PAIN LEVEL 1-3 OR FEVER for 1 Day, TAB Prov:CIRA ROBBINS MD 05/05/16 Allergies Allergies: Coded Allergies: No Known Allergy (Unverified , 07/17/16) PMhx/Soc History of Surgery: Yes (AV FISTULA PLACEMENT ) Anesthesia Reaction: No Hx Neurological Disorder: No Hx Respiratory Disorders: No Hx Cardiac Disorders: Yes (HX OF HTN ) Hx Psychiatric Problems: No Hx Miscellaneous Medical Probl: Yes (pls see EMR) Hx Alcohol Use: No Hx Substance Use: No Hx Tobacco Use: No FmHx Family History: No diabetes Physical Exam Vitals Vital Signs Date Time Temp Pulse Resp B/P Pulse Ox O2 Delivery O2 Flow Rate FiO2 07/17/16 13:10 98.7 72 18 130/86 9 Physical Exam Airway is intact Bilateral breath sounds Strong distal pulses No obvious deficits General: Cachectic male, uncomfortable when moving right lower extremity Head: Normocephalic, atraumatic Eyes: Pupils equally reactive, EOM intact ENT: Moist mucous membranes Neck: Supple, no lymphadenopathy, No midline tenderness, deformities, step-offs to the cervical spine, full active and passive range of motion without midline pain. Respiratory: Lungs clear bilaterally, no distress, no chest wall tenderness, no crepitus Cardiovascular: RRR, no murmurs, rubs, or gallops Abdominal: Soft, non-tender, non-distended, no peritoneal signs, pelvis is stable : Deferred MSK: Patient unable to fully extend his right hip. Focal tenderness of the right hip, limited range of motion secondary to pain. 2+ dorsalis pedis and posterior tibial pulses. No focal tenderness to the knee or ankle., no midline tenderness deformities or step-offs to the thoracolumbar spine Neurologic: Alert and oriented, moving all extremities, normal speech, no focal weakness, no cerebellar signs Skin: No ecchymoses or bruising to the chest or abdomen Psych: Normal mood Result Diagram: 07/17/16 1406 07/17/16 1406 Results 24 hrs Laboratory Tests Test 07/17/16 14:06 White Blood Count 6.510^3/ul Red Blood Count 3.9610^6/ul Hemoglobin 12.0g/dl Hematocrit 37.5% Mean Corpuscular Volume 94.7fl Mean Corpuscular Hemoglobin 30.3pg Mean Corpuscular Hemoglobin Concent 32.0g/dl Red Cell Distribution Width 14.6% Platelet Count 15983^3/UL Mean Platelet Volume 10.1fl Neutrophils % 66.0% Lymphocytes % 15.5% Monocytes % 10.0% Eosinophils % 6.8% Basophils % 0.5% Nucleated Red Blood Cells % 0.0/100WBC Neutrophils # 4.310^3/ul Lymphocytes # 1.010^3/ul Monocytes # 0.710^3/ul Eosinophils # 0.410^3/ul Basophils # 0.010^3/ul Nucleated Red Blood Cells # 0.010^3/ul Prothrombin Time Pending Prothrombin Time Ratio 0.9 INR International Normalized Ratio 0.83 Activated Partial Thromboplast Time Pending Sodium Level 140mmol/L Potassium Level 4.3mmol/L Chloride Level 92mmol/L Carbon Dioxide Level 32mmol/L Anion Gap 20 Blood Urea Nitrogen 20mg/dl Creatinine 2.87mg/dl Glucose Level 118mg/dl Calcium Level 9.3mg/dl Current Medications Medications (Trade) Dose Ordered Sig/Alisha Route PRN Reason Start Time Stop Time Status Last Admin Dose Admin Sodium Chloride (NS) 500 ml @ 500 mls/hr Q1H STAT IV 07/17/16 13:35 07/17/16 14:34 DC 07/17/16 14:13 Morphine Sulfate (morphine) 4 mg ONCE ONCE IV 07/17/16 14:00 07/17/16 14:01 DC 07/17/16 14:12 Ondansetron HCl (Zofran Inj) 4 mg ONCE ONCE IV 07/17/16 14:00 07/17/16 14:01 DC 07/17/16 14:12 Ondansetron HCl (Zofran Inj) 4 mg BRIDGE ORDER PRN IV NAUSEA AND/OR VOMITING 07/17/16 15:00 07/18/16 14:59 Acetaminophen (Tylenol Tab) 650 mg ER BRIDGE PRN PO MILD PAIN/FEVER 07/17/16 15:00 07/18/16 14:59 Procedures/MDM EKG, MONITORS, & DIAGNOSTIC IMAGING: EKG: I reviewed and interpreted a 12-lead EKG. Rhythm: Normal sinus rhythm Ectopy: None Intervals: No abnormalities ST segments: No elevations or depressions T waves: No contiguous inversions Chest x-ray: I reviewed and interpreted a 1 view of the chest Mediastinum: No enlargement Cardiac silhouette: No cardiomegaly Airspace: Clear lung marks bilaterally without evidence of pneumothorax Bones: No evidence of fracture X-ray pelvis: I reviewed and interpreted 1 view of the pelvis, there is evidence of a comminuted intertrochanteric fracture of the right hip, no pelvic ring fractures. No foreign body X-ray right hip: I reviewed and interpreted multiple views of the x-ray Bones: Comminuted intertrochanteric fracture of the right hip Soft tissue: No evidence of foreign body LAB INTERPRETATION: No hyperkalemia MEDICAL DECISION MAKING: Patient with clear mechanical fall. No evidence of syncope arrhythmia or stroke. No evidence of head injury. The patient does not meet high-risk criteria and based on NEXUS cervical spine criteria there is no indication for cervical spine imaging at this time. For these reasons no indication for CT imaging of the head or cervical spine. The patient seems to have focal tenderness of the right hip consistent with closed fracture of the right hip. Pelvis is stable. Low concern for pelvic fracture. X-ray imaging would be appropriate. Preoperative laboratory testing and diagnostic imaging initiated. ER COURSE: X-ray imaging confirms closed right hip fracture. The patient will be admitted for surgical management. Dr. Pedroza is convention services director and will consult on the case. Pain well controlled. I kept the patient and/or family informed of laboratory and diagnostic imaging results throughout the emergency room course. DISPOSITION PLAN: Medical surgical admission for management of closed hip fracture CONSULTATION: Accepting care team and consultations: I discussed the current laboratory data, diagnostic imaging and emergency care provided. Admitting team: Dr. Santiago Admitting team indication: Insurance directed Consulting services: Orthopedic surgeon convention services director Dr. Pedroza notified Departure Diagnosis: Primary Impression: End stage renal disease on dialysis Additional Impression: Closed right hip fracture Qualified Code: S72.001A - Closed right hip fracture, initial encounter Condition: Stable MICHELE BEATTY MD July 17, 2016 13:49
[2016-07-17] MEDS ORDERED: morphine 2 MG INJ IV ONE (14:00)
[2016-07-17] MEDS ORDERED: ONDANSETRON 4 MG INJ IV ONE (14:00)
[2016-07-17 14:13] LABS: ADD SCAN DIFF NO
[2016-07-17 14:15] LABS: BASOPHILS % 0.5 % (0.0-2.0); EOSINOPHILS # 0.4 10^3/ul (0.0-0.5); EOSINOPHILS % 6.8 % (0.0-7.0); HEMATOCRIT 37.5 % (42.0-52.0); LYMPHOCYTES % 15.5 % (15.0-51.0); MEAN CORPUSCULAR HEMOGLOBIN 30.3 pg (29.0-33.0); MEAN CORPUSCULAR VOLUME 94.7 fl (82.0-101.0); MEAN PLATELET VOLUME 10.1 fl (7.4-10.4); MONOCYTE # 0.7 10^3/ul (0.3-0.9); NEUTROPHIL # 4.3 10^3/ul (1.6-7.5); PLATELET COUNT 245 10^3/UL (140-415); RED BLOOD COUNT 3.96 10^6/ul (4.70-6.10); RED CELL DISTRIBUTION WIDTH 14.6 % (11.5-14.5); WHITE BLOOD COUNT 6.5 10^3/ul (4.8-10.8)
[2016-07-17 14:30] LABS: INR 0.83; PT RATIO 0.9
[2016-07-17 14:31] LABS: POTASSIUM 4.3 mmol/L (3.5-5.1)
[2016-07-17 14:34] LABS: CREATININE 2.87 mg/dl (0.61-1.24)
[2016-07-17 14:35] LABS: CALCIUM 9.3 mg/dl (8.4-10.2)
--- NOTE | 2016-07-17 14:42 | RADRPT ---
PROCEDURE: XR Chest 1 view. CLINICAL INDICATION: Chest pain and trauma TECHNIQUE: AP views of the chest were obtained. COMPARISON: February 10, 2013 FINDINGS: The heart is large. Calcified atherosclerosis is noted in the aorta. Atelectasis versus minimal inf iltrates are seen in the right lower lobe. Scattered subsegmental emphasis is noted in the left low er lobe. The lungs are hypoinflated. Mild interstitial prominence is seen in both lungs . The oss eous structures are osteopenic, but appear grossly intact. Degenerative changes are seen in the osman ulders. IMPRESSION: Cardiomegaly with calcified atherosclerosis in the aorta. No visualized traumatic injury. Hypoinflated lungs. Atelectasis versus mild infiltrates in the right lower lobe. Lung contusion is not definitely exclu ded and continued follow-up to assess stability is recommended. Scattered subsegmental atelectasis in the left lower lobe. Mild interstitial prominence throughout both lungs. Interstitial prominence may be chronic. If there is high clinical suspicion for traumatic injury, further evaluation with CT should be consi dered. RPTAT: AA .Tad Rivera MD, Date Time Electronically viewed and signed by .Tad Rivera MD, on 07/17/2016 14:41 .P/
--- NOTE | 2016-07-17 14:44 | RADRPT ---
PROCEDURE: XR Pelvis. CLINICAL INDICATION: Trauma, pain TECHNIQUE: Single AP view of the pelvis. COMPARISON: No prior studies are available for comparison. FINDINGS: There is a comminuted intertrochanteric fracture of the right femoral neck, with displaced greater a nd lesser trochanteric bony fragments. There is varus angulation. There is diffuse bony demineralization. There is a left hip arthroplasty, with overlying skin stapl es. There is an unremarkable visualized bowel gas pattern. IMPRESSION: 1. Comminuted right intertrochanteric femoral neck fracture with displacement of the greater and le sser trochanters. There is angulation. RPTAT: DD .Maykel Aldridge MD, MD Date Time Electronically viewed and signed by .Maykel Aldridge MD, on 07/17/2016 14:43 .T/
--- NOTE | 2016-07-17 14:46 | RADRPT ---
PROCEDURE: XR Hip. CLINICAL INDICATION: Trauma, pain TECHNIQUE: AP and frog lateral views of the right hip were performed. COMPARISON: None. FINDINGS: There is a comminuted intertrochanteric right femoral neck fracture. There is displacement of the g reater and lesser trochanter bony fragments. There is varus angulation. There is an intact appeari ng right hip joint. The soft tissues are unremarkable. IMPRESSION: Comminuted intertrochanteric right femoral neck fracture with varus angulation. There is displaceme nt of greater and lesser trochanter bony fragments. RPTAT: DD .Maykel Aldridge MD, Date Time Electronically viewed and signed by .Maykel Aldridge MD, MD on 07/17/2016 14:45 .T/
[2016-07-17] MEDS ORDERED: ACETAMINOPHEN 325 MG TAB PO PRN ×2 (15:00→16:00)
[2016-07-17] MEDS ORDERED: ONDANSETRON 4 MG INJ IV PRN ×2 (15:00→16:00)
[2016-07-17] MEDS ORDERED: HYDROmorphONE 1 MG/ML SYG IV STA ×2 (15:39→18:19)
[2016-07-17 15:55] LABS: PARTIAL THROMBOPLASTIN TIME 27.5 Sec (25.0-35.0)
[2016-07-17] MEDS ORDERED: BISACODYL (EC) 5 MG TAB PO PRN (16:00)
[2016-07-17] MEDS ORDERED: LORAZEPAM 2 MG INJ IV PRN (16:00)
[2016-07-17] MEDS ORDERED: MAGNESIUM HYDROXIDE 30ML CUP PO PRN (16:00)
[2016-07-17] MEDS ORDERED: NACL 0.9% 3 ML SYG IV SCH (16:00)
[2016-07-17 16:05] LABS: PROTIME 13.1 Sec (12.2-14.2)
[2016-07-17] MEDS ORDERED: hydrALAzine 20 MG INJ IV PRN ×2 (16:30→17:00)
[2016-07-17] MEDS ORDERED: AMLODIPINE 5 MG TAB PO ONE (17:00)
--- NOTE | 2016-07-17 17:03 | HP ---
DATE OF ADMISSION: 07/17/2016 TIME OF EVALUATION: 1530. REASON FOR ADMISSION: Right hip pain status post fall. CONSULTATIONS: 1. Dr. Nick Pedroza, Orthopedic Surgery. 2. Dr. Catarino Mccabe, Nephrology. 3. Dr. Anabelle Davila, Oncology. 4. Dr. Jerry Che, Cardiology. HISTORY OF PRESENT ILLNESS: This is a 70-year-old male with past medical history of essential hypertension and end-stage renal disease on hemodialysis who came to the emergency room after he fell down after a mechanical trip and fall onto his right hip. There was no reported head injury , loss of consciousness, chest pain, syncope or presyncope. The patient recently had a left hip fracture in April 2016 after a mechanical fall. At that time, the patient was noticed to have significant osteoporosis. Hence, oncology had evaluated the patient for any underlying malignancy involving the bone. The patient's pathology from the left hip bone surgery showed findings compatible with metastatic adenocarcinoma of prostate origin. It is unclear whether the patient is aware of this diagnosis of metastatic cancer. The patient was complaining of severe right hip pain that was worse with movement. The patient verbalized that he has not been able to ambulate after the fall. The patient verbalized that he had completed his hemodialysis today. In the emergency room, the patient underwent a pelvic x-ray that showed comminuted right intertrochanteric femoral neck fracture with displacement of the greater and lesser trochanter with angulation. The patient's chest x-ray showed cardiomegaly with calcified atherosclerosis in the aorta, hypoinflated lungs and atelectasis versus mild infiltrates in the right lower lobe. The chest x-ray also revealed scattered subsegmental atelectasis in the left lower lobe. In the emergency room, the patient was treated with analgesics and IV antiemetics. An orthopedic surgery consult was called by the ER physician. PAST MEDICAL HISTORY: Essential hypertension, end-stage renal disease on hemodialysis, anemia of chronic disease and metastatic adenocarcinoma of prostate origin. PAST SURGICAL HISTORY: Left hip surgery. Right forearm AV fistula placement. HOME MEDICATIONS: 1. Coreg 6.25 mg p.o. b.i.d. 2. Calcium acetate 667 mg p.o. with meals. REVIEW OF SYSTEMS: A 12-point review of systems was made and the review of systems were negative other than what is mentioned in history of present illness. PHYSICAL EXAMINATION: VITAL SIGNS: Temperature 98.7, pulse rate 65, respiratory rate 18, blood pressure 162/93, oxygen saturation 97% on room air. GENERAL: This is a thin male lying in bed in no apparent distress. HEENT: Head normocephalic and atraumatic. Eyes: Anicteric sclerae. Conjunctivae clear. ENT: Nasal septum is midline. Oral mucosa is dry. NECK: Supple. No JVD noticed. RESPIRATORY: Bilateral diminished breath sounds. No adventitious breath sounds heard. No use of accessory muscles of respiration. CARDIAC: Regular rate and rhythm. S1, S2 heard. ABDOMEN: Soft, nontender and nondistended. Bowel sounds positive in all 4 quadrants. GENITOURINARY: Deferred. EXTREMITIES: Right upper extremity AV fistula with positive bruit and thrill. Right lower extremity is externally rotated and normal when compared to the left lower extremity. Bilateral pedal pulses are palpable. NEUROLOGIC: The patient is awake, alert and oriented. Cranial nerves are grossly intact. LABORATORY AND DIAGNOSTIC DATA: WBC 6.5, hemoglobin 12.0, hematocrit 37.5, platelet count 245. Sodium 140, potassium 4.3, chloride 92, carbon dioxide 30, anion gap 20, BUN 20, creatinine 2.87, glucose 118, calcium 9.3. PT 13.1, INR 0.83, PTT 27.5. Pelvic x-ray: Comminuted right intertrochanteric femoral neck fracture with displacement of the great or lesser trochanters with angulation. Hip x-ray: Comminuted intertrochanteric right femoral neck fracture with varus angulation. There is displacement of the greater and lesser trochanter bony fragments. Chest x-ray: Cardiomegaly with calcified atherosclerosis in the aorta. Hypoinflated lungs. Atelectasis versus mild infiltrates in the right lower lobe. Lung condition is not definitely excluded. Scattered subsegmental atelectasis in the left lower lobe. Mild interstitial prominence throughout both lungs. IMPRESSION: This is a 70-year-old male who came to the emergency room status post mechanical fall at home who had a right femoral intertrochanteric fracture with displacement of the greater and lesser trochanters which is comminuted. He will be admitted here for further treatment and evaluation. ASSESSMENT AND PLAN: 1. Comminuted right intratrochanteric femoral neck fracture with displacement of the greater and lesser trochanters with varus angulation. The patient will be provided with adequate pain control. The patient will be maintained on bed rest. The patient's right lower extremity will be immobilized. An orthopedic surgery consult will be called for further evaluation of this. A Cardiology consult will be obtained for cardiac clearance for any possible surgical repair. 2. End-stage renal disease on hemodialysis. The patient already got hemodialysis on 07/17/2016. His scheduled days of hemodialysis are Tuesdays, , and Saturdays. The patient's development technical lead will be informed about the patient's admission. The patient has no evidence of any fluid overload. The patient has no underlying hyperkalemia that necessitates any emergent hemodialysis. 3. Essential hypertension. The patient will be maintained on antihypertensives including p.r.n. antihypertensives for any systolic blood pressure readings greater than 160 mmHg. 4. 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 The patient's oncologist who evaluated the patient the last time will be consulted. The patient will be provided with adequate pain control. It is unclear whether the patient is aware of the metastatic bone cancer. 5. Normocytic normochromic anemia, most probably anemia of chronic kidney disease. The patient's hemoglobin and hematocrit will be monitored closely. The patient will be transfused as indicated. Plan. The patient will be admitted to inpatient setting. The patient will be started on a renal diet. He will be started on DVT prophylaxis and gastrointestinal prophylaxis. Activities will be bedrest. The patient will remain a FULL CODE. A 2D echocardiogram will not be repeated since the patient recently had an echocardiogram in April 2016. The rest of the patient's management will be based on clinical course, the results of diagnostic studies, and inputs from consultants. Based on the patient's clinical presentation, he most probably requires more than 2 midnights' stay for further management and evaluation of his clinical presentation. The case and management of this patient was fully discussed with Dr. Chavis. DIONI CHAVIS MD, AM/VIOLA Conf#: [id number] DID#: [id number] MTDD
--- NOTE | 2016-07-17 17:52 | CONS ---
Date/Time of Note Date/Time of Note DATE: 07/17/16 TIME: 17:45 Assessment/Plan Assessment/Plan Additional Assessment/Plan Preoperative cardiac risk stratification Right hip fracture Preserved ejection fraction End-stage renal disease on hemodialysis Hypertension -Patient with mechanical fall and now with right hip fracture. Unfortunately, patient with similar episode last month with mechanical fall and left hip fracture. He underwent orthopedic surgery at that time with no significant raphael -or postoperative cardiac issues. Given the above, patient at an intermediate risk for any untoward cardiac events for orthopedic surgery. Given the acute fracture, the benefits likely outweigh the risks. Consultation Date/Type/Reason Admit Date/Time Type of Consultation: cv Reason for Consultation Preoperative cardiac risk stratification Hx of Present Illness This is a 70-year-old male with past medical history of hypertension, end-stage renal disease on hemodialysis, prostate cancer with metastases, preserved ejection fraction who presents after mechanical fall and found to have a right hip fracture. Patient slipped and fell on his right side. He denies any loss of consciousness, palpitations, chest pain or shortness of breath prior to this episode. Furthermore, he denies the above symptoms currently as well. Cardiology consultation was requested preoperatively for risk factor stratification. Unfortunately, patient had a similar episode in April 2016 with a left hip fracture. He underwent orthopedic repair with no major raphael-or postoperative cardiac issues. 12 point review of systems was performed with all pertinent positives and negatives mentioned above and all else is negative Past Medical History Hypertension End-stage renal disease on hemodialysis Prostate cancer with metastases Past Surgical History Hip surgery Hernia repair Hemodialysis fistula Family History Significant Family History: no pertinent family hx Social History Alcohol Use: none Smoking Status: Former smoker Exam/Review of Systems Vital Signs Vitals Vital Signs Date Time Temp Pulse Resp B/P Pulse Ox O2 Delivery O2 Flow Rate FiO2 07/17/16 15:41 67 18 162/93 97 Room Air 07/17/16 13:10 98.7 Exam No apparent distress Constitutional: alert, frail, oriented Head: normocephalic Neck: supple Respiratory: other (Coarse breath sounds bilaterally, no wheezing) Cardiovascular: other (S1-S2 heard), regular rate and rhythm Gastrointestinal: bowel sounds, non-tender, other (No guarding), soft Extremities: edema (Trace) Results Result Diagram: 07/17/16 1406 07/17/16 1406 Results 24 hrs Laboratory Tests Test 07/17/16 14:06 07/17/16 15:30 White Blood Count 6.5 # Red Blood Count 3.96 L Hemoglobin 12.0 L Hematocrit 37.5 L Mean Corpuscular Volume 94.7 Mean Corpuscular Hemoglobin 30.3 Mean Corpuscular Hemoglobin Concent 32.0 Red Cell Distribution Width 14.6 H Platelet Count 245 # Mean Platelet Volume 10.1 Neutrophils % 66.0 Lymphocytes % 15.5 Monocytes % 10.0 Eosinophils % 6.8 Basophils % 0.5 Nucleated Red Blood Cells % 0.0 Neutrophils # 4.3 Lymphocytes # 1.0 Monocytes # 0.7 Eosinophils # 0.4 Basophils # 0.0 Nucleated Red Blood Cells # 0.0 Sodium Level 140 Potassium Level 4.3 Chloride Level 92 L Carbon Dioxide Level 32 H Anion Gap 20 H Blood Urea Nitrogen 20 Creatinine 2.87 H Glucose Level 118 Calcium Level 9.3 Prothrombin Time 13.1 Prothrombin Time Ratio 0.9 INR International Normalized Ratio 0.83 Activated Partial Thromboplast Time 27.5 Medications Medications Current Medications Lorazepam (Ativan) 0.5 mg Q6H PRN IV ANXIETY; Start 07/17/16 at 16:00 Ondansetron HCl (Zofran Inj) 4 mg Q6H PRN IV NAUSEA AND/OR VOMITING; Start at 16:00 Acetaminophen (Tylenol Tab) 650 mg Q6H PRN PO PAIN LEVEL 1-3 OR FEVER; Start at 16:00 Acetaminophen/ Hydrocodone Bitart ([place] (5/325)) 1 tab Q6H PRN PO PAIN LEVEL 4 -6; Start 07/17/16 at 16:00 Magnesium Hydroxide (Milk Of Mag) 30 ml DAILY PRN PO CONSTIPATION; Start at 16:00 Bisacodyl (Dulcolax) 5 mg DAILY PRN PO CONSTIPATION; Start 07/17/16 at 16:00 Famotidine (Pepcid) 20 mg Q24H PO ; Start 07/17/16 at 21:00 Heparin Sodium (Porcine) (Heparin (5000 Units/0.5 ml)) 5,000 unit Q12 SC ; Start 07/17/16 at 21:00 Hydralazine HCl (Apresoline) 10 mg Q6H PRN IV SBP>160; Start 07/17/16 at 16:30 Hydromorphone HCl (Dilaudid) 1 mg Q4H PRN IV PAIN; Start 07/17/16 at 16:30 Carvedilol (Coreg) 6.25 mg BID PO ; Start 07/17/16 at 21:00 Amlodipine Besylate (Norvasc) 5 mg DAILY PO ; Start 07/18/16 at 09:00 Hydralazine HCl (Apresoline) 10 mg Q4H PRN IV SBP>150 mm Hg ; Start 07/17/16 at 17:00 Procedures Procedures ECG demonstrates sinus rhythm at 70 bpm, QRS 90 ms, nonspecific STT wave abnormalities Jerry Che DO July 17, 2016 17:52
--- NOTE | 2016-07-17 17:56 | CONS ---
DATE OF ADMISSION: 07/17/2016 DATE OF CONSULTATION: 07/17/2016 TYPE OF CONSULTATION: Nephrology. REFERRING PHYSICIAN: Dr. Santiago/nurse practitioner, Nghia. REASON FOR CONSULTATION: Maintenance hemodialysis patient who presented after having a fall episode and complaining of left leg pain. HISTORY OF PRESENT ILLNESS: This is a 70-year-old male who has a past medical history of hypertensi on, history of polycystic kidney disease and end-stage renal disease on hemodialysis on Thursday, Thu and Thursday in the dialysis unit. The patient was recently admitted from 05/01/2016 to 05/05 for left femoral knee fractures and had a left hip hemiarthroplasty at that time. After that, the patient was discharged to a [facility]pc facility. The patient went back to home from a [facility] nursing facility and he was brought back into the [facility] a fter having a fall episode. The patient was complaining of right hip pain. The patient had a mecha nical trip. He fell into his right hip. He denies any head trauma or loss of consciousness, no ch est pain, palpitation, shortness of breath prior to the episodes. The patient had his dialysis doe ier today. The pain he was describing is moderate to severe right hip pain that is worse with the m oment. He is not able to ambulate due to the fall. The pain is worse with the moment constant, 8/1 0. In the emergency room, he received pain medications. His vitals were stable. Blood pressure was no rmal and a BUN of 20 with a creatinine of 2.8. The patient's EKG shows a normal sinus rhythm. The chest x-ray was negative for any acute findings. His x-ray of his pelvis negative for any fractures . The patient also has a right hip fracture which shows a comminuted intertrochanteric fracture of the right hip. The patient's labs revealed no evidence of any hyperkalemia. He is getting admitted for the closed right hip fracture and renal has been consulted for maintenance hemodialysis. REVIEW OF SYSTEMS: A fall episode, complaining of right hip pain. Other review of systems has been obtained and is negative except what is mentioned in the history of present illness. PAST MEDICAL HISTORY: Includes a history of hypertension, polycystic kidney disease, currently end- stage renal disease on hemodialysis Thursday, and Thursday at the dialysis unit. PAST SURGICAL HISTORY: 1. Right upper extremity fistula for dialysis access. 2. History of arteriovenous fistula for dialysis access. 3. History of right hip hemiarthroplasty for a recent right hip fracture. SOCIAL HISTORY: Lives with the family. No smoking, alcohol or recreational drug use. FAMILY HISTORY: Not available at this time. PHYSICAL EXAMINATION: VITAL SIGNS: Temperature 98.7, heart rate 67, respiration 18, blood pressure 162/93, saturation 97% on room air. Pain 8/10. GENERAL: Awake, alert, mild distress due to the pain. HEENT: Normal. Oropharynx clear. NECK: Supple, no JVD, no lymphadenopathy. LUNGS: Clear to auscultation. No crackles, no wheezes. HEART: S1, S2, with regular rhythm, no murmur. ABDOMEN: Soft, nontender, nondistended. Bowel sounds are present. EXTREMITIES: The patient is tender to palpation in the right hip. Not able to move the right lower extremity. NEUROLOGICAL: Nonfocal, intact. PSYCHIATRIC: Appropriate affect and mood. LABORATORY DATA AND DIAGNOSTIC IMAGING 1. WBC 6.5, hemoglobin 12, platelet count 245. Sodium 140, potassium 4.3, chloride 92, bicarbonate 32, BUN 20, creatinine 2.8, glucose 108, calcium 9.3. PT 13.1, PTT 27, INR 0.83. 2. X-ray of pelvis shows a comminuted right intertrochanteric femoral neck fracture with displaceme nt of the greater and lesser trochanter. There is angulation. 3. Right hip x-ray shows a comminuted intertrochanteric right femoral neck fracture with varus angu lation 4. Chest x-ray is negative for any acute finding, it shows cardiomegaly with atherosclerosis, diffu se. IMPRESSION: This is a 70-year-old male who presented after having a fall episode and he is noted to have a right intertrochanteric femur fractures and renal has been consulted for maintenance hemodia lysis. 1. Status post mechanical fall. 2. Right hip/right femur intertrochanteric fracture. 3. Comminuted right hip fracture. 4. End-stage renal disease on hemodialysis Thursday, and Thursday. The patient had his hem odialysis in the morning today. 5. Hypertension. 6. Hyperlipidemia. 7. History of polycystic kidney disease. 8. Thank you, Dr. Snatiago for this consultation. The patient was seen in the emergency room. His bloo d pressure is slightly running on the higher side. 9. I will start the patient on amlodipine 10 mg p.o. daily for better blood pressure control and wi ll use hydralazine IV p.r.n. The patient will need orthopedic consultation. 10. The patient has his hemodialysis done today and his regular schedule for dialysis is Thursday, and Thursday, so we will follow up on his labs in the morning to decide for hemodialysis camila . 11. Continue the other medications. The patient currently seen in the emergency room and he will b e getting admitted by our hospitalist service. Total time spent in this patient evaluation making our assessment and plan and communicating with th e patient and the family member at bedside and nursing staff in the emergency room took more than 90 minutes. Dictated By: AME MESA MD, KP/VIOLA Conf#: [id number] DID#: [id number]
[2016-07-17 18:35] VITALS: TEMP 97.8
[2016-07-17 20:15] VITALS: BP 166/93; RESP 18
[2016-07-17] MEDS: HEPARIN 5,000 UNIT/0.5 ML VIAL SC SCH (21:00)
[2016-07-17] MEDS: FAMOTIDINE 20 MG TAB PO SCH (21:36)
[2016-07-17] MEDS: HYDROCODONE/APAP (5/325) TAB PO PRN (21:37)
[2016-07-17 21:46] VITALS: BP 171/94; PULSE 73
[2016-07-17] MEDS: HYDROmorphONE 1 MG/ML SYG IV PRN (23:23)
[2016-07-18 00:55] VITALS: BP 141/90; PULSE 66
[2016-07-18 05:00] VITALS: Ht 170.2 cm; Wt 56.6 kg
[2016-07-18] MEDS: HYDROmorphONE 1 MG/ML SYG IV PRN (06:02)
[2016-07-18 06:03] LABS: ADD SCAN DIFF NO
[2016-07-18 06:15] LABS: BASOPHILS % 0.1 % (0.0-2.0); EOSINOPHILS % 0.2 % (0.0-7.0); HEMOGLOBIN 10.5 g/dl (14.0-18.0); LYMPHOCYTES # 0.9 10^3/ul (0.8-2.9); MEAN CORPUSCULAR HEMOGLOBIN 30.1 pg (29.0-33.0); MEAN CORPUSCULAR HGB CONC 30.9 g/dl (32.0-37.0); MEAN CORPUSCULAR VOLUME 97.4 fl (82.0-101.0); MEAN PLATELET VOLUME 10.6 fl (7.4-10.4); MONOCYTE # 0.9 10^3/ul (0.3-0.9); MONOCYTES % 9.5 % (0.0-11.0); NEUTROPHIL # 7.8 10^3/ul (1.6-7.5); NEUTROPHILS % 80.6 % (39.0-77.0); PLATELET COUNT 187 10^3/UL (140-415); RED BLOOD COUNT 3.49 10^6/ul (4.70-6.10); RED CELL DISTRIBUTION WIDTH 14.7 % (11.5-14.5); WHITE BLOOD COUNT 9.7 10^3/ul (4.8-10.8)
[2016-07-18 06:42] LABS: CREATININE 4.15 mg/dl (0.61-1.24); POTASSIUM 5.4 mmol/L (3.5-5.1)
[2016-07-18 06:48] LABS: CHOL/HDL RATIO 2.5 RATIO; MAGNESIUM 2.2 mg/dl (1.7-2.5)
[2016-07-18 06:55] LABS: FREE T3 3.72 pg/ml (2.77-5.27)
[2016-07-18 07:09] LABS: THYROID STIMULATING HORMONE 4.04 MIU/L (0.465-4.680)
[2016-07-18 07:53] VITALS: BP 107/72; RESP 20
--- NOTE | 2016-07-18 09:20 | PN ---
Date/Time of Note Date/Time of Note DATE: 07/18/16 TIME: 09:20 Assessment/Plan VTE Prophylaxis VTE Prophylaxis Intervention: heparin Lines/Catheters IV [facility]from [facility]): [facility] Urinary Cath still in place: Yes Reason Cath still needed: other (indicate) Assessment/Plan Chief Complaint/Hosp Course 1. Comminuted right intratrochanteric femoral neck fracture with displacement of the greater and lesser trochanters with varus angulation. The patient will be provided with adequate pain control. The patient will be maintained on bed rest. The patient's right lower extremity will be immobilized. Awaiting orthopedic surgery input. 2. End-stage renal disease on hemodialysis. Patient being followed by nephrology. Hemodialysis as per nephrology. 3. Essential hypertension. The patient will be maintained on antihypertensives including p.r.n. antihypertensives for any systolic blood pressure readings greater than 160 mmHg. 4. 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 The patient being followed by oncology. 5. Normocytic normochromic anemia, most probably anemia of chronic kidney disease. The patient's hemoglobin and hematocrit will be monitored closely. The patient will be transfused as indicated. 6. Hyperkalemia. Management as per nephrology. 7. DVT prophylaxis with subcutaneous heparin. 8. Gastrointestinal prophylaxis. Histamine 2 receptor blockers. 9. Plan. Continue pain control. Await orthopedic surgery evaluation. Case discussed with Dr. Santiago. Perioperative risk stratification: The patient has multiple comorbidities including end-stage renal disease on hemodialysis, essential hypertension, and metastatic prostate cancer. The patient has a underlying acute right hip fracture. Given the patient's comorbidities, he is at intermediate risk for untoward medical complications perioperatively. Nevertheless, the benefits would outweigh the risks of any surgical intervention for acute right hip fracture. Problems: Subjective 24 Hr Interval Summary Free Text/Dictation Right hip pain well controlled. Exam/Review of Systems Vital Signs Vitals Vital Signs Date Time Temp Pulse Resp B/P Pulse Ox O2 Delivery O2 Flow Rate FiO2 07/18/16 07:53 98.3 70 20 107/72 95 07/18/16 07:29 Nasal Cannula 3.0 Intake and Output 07/17/16 07/17/16 07/18/16 15:00 23:00 07:00 Intake Total 240 ml Output Total 100 ml Balance 140 ml Exam GENERAL: This is a thin male lying in bed in no apparent distress. HEENT: Head normocephalic and atraumatic. Eyes: Anicteric sclerae. Conjunctivae clear. ENT: Nasal septum is midline. Oral mucosa is dry. NECK: Supple. No JVD noticed. RESPIRATORY: Bilateral diminished breath sounds. No adventitious breath sounds heard. No use of accessory muscles of respiration. CARDIAC: Regular rate and rhythm. S1, S2 heard. ABDOMEN: Soft, nontender and nondistended. Bowel sounds positive in all 4 quadrants. GENITOURINARY: Deferred. EXTREMITIES: Right upper extremity AV fistula with positive bruit and thrill. Right lower extremity is externally rotated and normal when compared to the left lower extremity. Bilateral pedal pulses are palpable. NEUROLOGIC: The patient is awake, alert and oriented. Cranial nerves are grossly intact. Results Result Diagram: 07/18/16 0525 07/18/16 0525 Results 24 hrs Laboratory Tests Test 07/17/16 14:06 07/17/16 15:30 07/18/16 05:20 07/18/16 05:25 White Blood Count 6.5 # 9.7 # Red Blood Count 3.96 L 3.49 L Hemoglobin 12.0 L 10.5 L Hematocrit 37.5 L 34.0 L Mean Corpuscular Volume 94.7 97.4 Mean Corpuscular Hemoglobin 30.3 30.1 Mean Corpuscular Hemoglobin Concent 32.0 30.9 L Red Cell Distribution Width 14.6 H 14.7 H Platelet Count 245 # 187 # Mean Platelet Volume 10.1 10.6 H Neutrophils % 66.0 80.6 H Lymphocytes % 15.5 9.0 L Monocytes % 10.0 9.5 Eosinophils % 6.8 0.2 Basophils % 0.5 0.1 Nucleated Red Blood Cells % 0.0 0.0 Neutrophils # 4.3 7.8 H Lymphocytes # 1.0 0.9 Monocytes # 0.7 0.9 Eosinophils # 0.4 0.0 Basophils # 0.0 0.0 Nucleated Red Blood Cells # 0.0 0.0 Sodium Level 140 136 Potassium Level 4.3 5.4 H Chloride Level 92 L 95 L Carbon Dioxide Level 32 H 32 H Anion Gap 20 H 14 Blood Urea Nitrogen 20 32 #H Creatinine 2.87 H 4.15 #H Glucose Level 118 127 Calcium Level 9.3 9.0 Prothrombin Time 13.1 Prothrombin Time Ratio 0.9 INR International Normalized Ratio 0.83 Activated Partial Thromboplast Time 27.5 Phosphorus Level 6.0 H Magnesium Level 2.2 Triglycerides Level 107 Cholesterol Level 173 LDL Cholesterol, Calculated 84 HDL Cholesterol 68 Cholesterol/HDL Ratio 2.5 Thyroid Stimulating Hormone (TSH) 4.040 Free Triiodothyronine (T3) pg/mL 3.72 Hemoglobin A1c 4.9 Medications Medications Current Medications Lorazepam (Ativan) 0.5 mg Q6H PRN IV ANXIETY; Start 07/17/16 at 16:00 Ondansetron HCl (Zofran Inj) 4 mg Q6H PRN IV NAUSEA AND/OR VOMITING; Start at 16:00 Acetaminophen (Tylenol Tab) 650 mg Q6H PRN PO PAIN LEVEL 1-3 OR FEVER; Start at 16:00 Acetaminophen/ Hydrocodone Bitart ([place] (5/325)) 1 tab Q6H PRN PO PAIN LEVEL 4 -6 Last administered on 07/17/16 21:37; Admin Dose 1 TAB; Start 07/17/16 at 16: 00 Magnesium Hydroxide (Milk Of Mag) 30 ml DAILY PRN PO CONSTIPATION; Start at 16:00 Bisacodyl (Dulcolax) 5 mg DAILY PRN PO CONSTIPATION; Start 07/17/16 at 16:00 Famotidine (Pepcid) 20 mg Q24H PO Last administered on 07/17/16 21:36; Admin Dose 20 MG; Start 07/17/16 at 21:00 Heparin Sodium (Porcine) (Heparin (5000 Units/0.5 ml)) 5,000 unit Q12 SC ; Start 07/17/16 at 21:00 Hydralazine HCl (Apresoline) 10 mg Q6H PRN IV SBP>160; Start 07/17/16 at 16:30 Hydromorphone HCl (Dilaudid) 1 mg Q4H PRN IV PAIN Last administered on 06:02; Admin Dose 1 MG; Start 07/17/16 at 16:30 Carvedilol (Coreg) 6.25 mg BID PO Last administered on 07/17/16 21:36; Admin Dose 6.25 MG; Start 07/17/16 at 21:00 Amlodipine Besylate (Norvasc) 5 mg DAILY PO ; Start 07/18/16 at 09:00 Hydralazine HCl (Apresoline) 10 mg Q4H PRN IV SBP>150 mm Hg ; Start 07/17/16 at 17:00 DIONI DAWN NP July 18, 2016 09:20
[2016-07-18] MEDS: AMLODIPINE 5 MG TAB PO SCH (10:07)
--- NOTE | 2016-07-18 10:23 | CONS ---
Date/Time of Note Date/Time of Note DATE: 07/18/16 TIME: 10:21 Assessment/Plan Assessment/Plan Additional Assessment/Plan Preoperative cardiac risk stratification Right hip fracture Preserved ejection fraction End-stage renal disease on hemodialysis Hypertension -Patient awaiting surgical evaluation for possible orthopedic procedure for right hip fracture. Blood pressure trend has improved with medications being adjusted by our nephrology colleagues. Please refer to our previous cardiology note 07/17/2016 regarding preoperative cardiac risk stratification. Consultation Date/Type/Reason Admit Date/Time July 17, 2016 at 14:51 Initial Consult Date Type of Consultation: cv 24 HR Interval Summary Free Text/Dictation Denies shortness of breath, chest pain, dizziness. Complaining of hip pain Exam/Review of Systems Vital Signs Vitals Vital Signs Date Time Temp Pulse Resp B/P Pulse Ox O2 Delivery O2 Flow Rate FiO2 07/18/16 07:53 98.3 70 20 107/72 95 07/18/16 07:29 Nasal Cannula 3.0 Intake and Output 07/17/16 07/17/16 07/18/16 15:00 23:00 07:00 Intake Total 240 ml Output Total 100 ml Balance 140 ml Exam No apparent distress Constitutional: alert, oriented Head: normocephalic Respiratory: other (Coarse breath sounds bilaterally, no wheezing) Cardiovascular: other (S1-S2 heard), regular rate and rhythm Gastrointestinal: bowel sounds, non-tender, soft Extremities: other (No edema) Results Result Diagram: 07/18/16 0525 07/18/16 0525 Results 24 hrs Laboratory Tests Test 07/17/16 14:06 07/17/16 15:30 07/18/16 05:20 07/18/16 05:25 White Blood Count 6.5 # 9.7 # Red Blood Count 3.96 L 3.49 L Hemoglobin 12.0 L 10.5 L Hematocrit 37.5 L 34.0 L Mean Corpuscular Volume 94.7 97.4 Mean Corpuscular Hemoglobin 30.3 30.1 Mean Corpuscular Hemoglobin Concent 32.0 30.9 L Red Cell Distribution Width 14.6 H 14.7 H Platelet Count 245 # 187 # Mean Platelet Volume 10.1 10.6 H Neutrophils % 66.0 80.6 H Lymphocytes % 15.5 9.0 L Monocytes % 10.0 9.5 Eosinophils % 6.8 0.2 Basophils % 0.5 0.1 Nucleated Red Blood Cells % 0.0 0.0 Neutrophils # 4.3 7.8 H Lymphocytes # 1.0 0.9 Monocytes # 0.7 0.9 Eosinophils # 0.4 0.0 Basophils # 0.0 0.0 Nucleated Red Blood Cells # 0.0 0.0 Sodium Level 140 136 Potassium Level 4.3 5.4 H Chloride Level 92 L 95 L Carbon Dioxide Level 32 H 32 H Anion Gap 20 H 14 Blood Urea Nitrogen 20 32 #H Creatinine 2.87 H 4.15 #H Glucose Level 118 127 Calcium Level 9.3 9.0 Prothrombin Time 13.1 Prothrombin Time Ratio 0.9 INR International Normalized Ratio 0.83 Activated Partial Thromboplast Time 27.5 Phosphorus Level 6.0 H Magnesium Level 2.2 Triglycerides Level 107 Cholesterol Level 173 LDL Cholesterol, Calculated 84 HDL Cholesterol 68 Cholesterol/HDL Ratio 2.5 Thyroid Stimulating Hormone (TSH) 4.040 Free Triiodothyronine (T3) pg/mL 3.72 Hemoglobin A1c 4.9 Medications Medications Current Medications Lorazepam (Ativan) 0.5 mg Q6H PRN IV ANXIETY; Start 07/17/16 at 16:00 Ondansetron HCl (Zofran Inj) 4 mg Q6H PRN IV NAUSEA AND/OR VOMITING; Start at 16:00 Acetaminophen (Tylenol Tab) 650 mg Q6H PRN PO PAIN LEVEL 1-3 OR FEVER; Start at 16:00 Acetaminophen/ Hydrocodone Bitart ([place] (5/325)) 1 tab Q6H PRN PO PAIN LEVEL 4 -6 Last administered on 07/17/16 21:37; Admin Dose 1 TAB; Start 07/17/16 at 16: 00 Magnesium Hydroxide (Milk Of Mag) 30 ml DAILY PRN PO CONSTIPATION; Start at 16:00 Bisacodyl (Dulcolax) 5 mg DAILY PRN PO CONSTIPATION; Start 07/17/16 at 16:00 Famotidine (Pepcid) 20 mg Q24H PO Last administered on 07/17/16 21:36; Admin Dose 20 MG; Start 07/17/16 at 21:00 Heparin Sodium (Porcine) (Heparin (5000 Units/0.5 ml)) 5,000 unit Q12 SC ; Start 07/17/16 at 21:00 Hydralazine HCl (Apresoline) 10 mg Q6H PRN IV SBP>160; Start 07/17/16 at 16:30 Hydromorphone HCl (Dilaudid) 1 mg Q4H PRN IV PAIN Last administered on 06:02; Admin Dose 1 MG; Start 07/17/16 at 16:30 Carvedilol (Coreg) 6.25 mg BID PO Last administered on 07/17/16 21:36; Admin Dose 6.25 MG; Start 07/17/16 at 21:00 Amlodipine Besylate (Norvasc) 5 mg DAILY PO ; Start 07/18/16 at 09:00 Hydralazine HCl (Apresoline) 10 mg Q4H PRN IV SBP>150 mm Hg ; Start 07/17/16 at 17:00 Jerry Che DO July 18, 2016 10:23
--- NOTE | 2016-07-18 10:49 | CONS ---
Date/Time of Note Date/Time of Note DATE: 07/18/16 TIME: 09:53 Assessment/Plan Assessment/Plan Chief Complaint/Hosp Course 70 yo with metastatic prostate cancer, newly diagnosed 2 months ago. Pt is s/p fracture of Left hip s/p/ L hemiarthoropasty and has now sustained a Right hip fracture #Metastatic prostate cancer -need to continue Lupron and Casodex. Lupron should be continued on a q 3 month basis. This was supposed to have been given in the [facility] in April but per [facility] it was never started. He was also supposed to follow up with radiation oncologist which also was not done -will given Lupron 22.5 mg at this time SQ -will check testosterone level to asses if patient is already castrate resistant -check PSA # Left Hip fracture s/p Left hemiarthroplasty -pt needs Rad onc evaluation. Dr Iqbal called #Acute Right hip fracture -f/u orho eval. pt will need surgery -after surgery pt will need XRT given this is a pathologic fracture #osteoporosis -cont Ca/ Vitamin D and bisphosphate, Fosamax Problems: Consultation Date/Type/Reason Admit Date/Time 07/18/16 Date of Consultation: July 18, 2016 Type of Consultation: oncology Reason for Consultation metastatic prostate cancer Referring Provider: DIONI DAWN NP Hx of Present Illness 70 yo male with multiple medical problems including ESRD on HD, h/o hypertension. The patient was recently admitted to [facility] in April when he presented s/p fall and sustained a LEFT hip fracture. He underwent a hemiarthroplasty of the left hip at the time and was diagnosed with metastatic prostate cancer to his bones. The patient was then seen in our clinic on May 16 when he was started on Lupron and Casodex. After that, the patient was discharged to a longterm facility. While at the nursing facility, patient sustained another fall and has since been complaining of right hip pain. His x-ray of his pelvis negative for any fractures. An xray of the right hip was done which demonstrated a RIGHT hip fracture which shows a comminuted intertrochanteric fracture. He is not be evaluated by orthopedic surgery. Subjective hx not possible: other (c/p right hip pain) Eyes: no complaints ENT: no complaints Cardiovascular: no complaints Gastrointestinal: no complaints Genitourinary: no complaints Musculoskeletal: bone/joint pain, other (bilateral hip), restricted range of motion Skin: no complaints Neurologic: no complaints Endocrine: no complaints Past Medical History hypertension history of polycystic kidney disease and end-stage renal disease on hemodialysis on Thursday, and Thursday in the dialysis unit Past Surgical History 1. Right upper extremity fistula for dialysis access. 2. History of arteriovenous fistula for dialysis access. 3. History of right hip hemiarthroplasty for a recent right hip fracture. Family History Significant Family History: no pertinent family hx Social History Alcohol Use: none Smoking Status: Former smoker Exam/Review of Systems Vital Signs Vitals Vital Signs Date Time Temp Pulse Resp B/P Pulse Ox O2 Delivery O2 Flow Rate FiO2 07/18/16 07:53 98.3 70 20 107/72 95 07/18/16 07:29 Nasal Cannula 3.0 Intake and Output 07/17/16 07/17/16 07/18/16 15:00 23:00 07:00 Intake Total 240 ml Output Total 100 ml Balance 140 ml Exam Constitutional: distress, frail Psych: depression Head: normocephalic Eyes: nl conjunctiva ENMT: nl external ears & nose Neck: non-tender, supple Respiratory: clear to auscultation, normal air movement Cardiovascular: regular rate and rhythm Gastrointestinal: soft Musculoskeletal: joint tenderness, muscle weakness Results Result Diagram: 07/18/1652407/18/16 0525 Results 24 hrs Laboratory Tests Test 07/17/16 14:06 07/17/16 15:30 07/18/16 05:20 07/18/16 05:25 White Blood Count 6.5 # 9.7 # Red Blood Count 3.96 L 3.49 L Hemoglobin 12.0 L 10.5 L Hematocrit 37.5 L 34.0 L Mean Corpuscular Volume 94.7 97.4 Mean Corpuscular Hemoglobin 30.3 30.1 Mean Corpuscular Hemoglobin Concent 32.0 30.9 L Red Cell Distribution Width 14.6 H 14.7 H Platelet Count 245 # 187 # Mean Platelet Volume 10.1 10.6 H Neutrophils % 66.0 80.6 H Lymphocytes % 15.5 9.0 L Monocytes % 10.0 9.5 Eosinophils % 6.8 0.2 Basophils % 0.5 0.1 Nucleated Red Blood Cells % 0.0 0.0 Neutrophils # 4.3 7.8 H Lymphocytes # 1.0 0.9 Monocytes # 0.7 0.9 Eosinophils # 0.4 0.0 Basophils # 0.0 0.0 Nucleated Red Blood Cells # 0.0 0.0 Sodium Level 140 136 Potassium Level 4.3 5.4 H Chloride Level 92 L 95 L Carbon Dioxide Level 32 H 32 H Anion Gap 20 H 14 Blood Urea Nitrogen 20 32 #H Creatinine 2.87 H 4.15 #H Glucose Level 118 127 Calcium Level 9.3 9.0 Prothrombin Time 13.1 Prothrombin Time Ratio 0.9 INR International Normalized Ratio 0.83 Activated Partial Thromboplast Time 27.5 Phosphorus Level 6.0 H Magnesium Level 2.2 Triglycerides Level 107 Cholesterol Level 173 LDL Cholesterol, Calculated 84 HDL Cholesterol 68 Cholesterol/HDL Ratio 2.5 Thyroid Stimulating Hormone (TSH) 4.040 Free Triiodothyronine (T3) pg/mL 3.72 Hemoglobin A1c 4.9 Medications Medications Current Medications Lorazepam (Ativan) 0.5 mg Q6H PRN IV ANXIETY; Start 07/17/16 at 16:00 Ondansetron HCl (Zofran Inj) 4 mg Q6H PRN IV NAUSEA AND/OR VOMITING; Start at 16:00 Acetaminophen (Tylenol Tab) 650 mg Q6H PRN PO PAIN LEVEL 1-3 OR FEVER; Start at 16:00 Acetaminophen/ Hydrocodone Bitart ([place] (5/325)) 1 tab Q6H PRN PO PAIN LEVEL 4 -6 Last administered on 07/17/16 21:37; Admin Dose 1 TAB; Start 07/17/16 at 16: 00 Magnesium Hydroxide (Milk Of Mag) 30 ml DAILY PRN PO CONSTIPATION; Start at 16:00 Bisacodyl (Dulcolax) 5 mg DAILY PRN PO CONSTIPATION; Start 07/17/16 at 16:00 Famotidine (Pepcid) 20 mg Q24H PO Last administered on 07/17/16 21:36; Admin Dose 20 MG; Start 07/17/16 at 21:00 Heparin Sodium (Porcine) (Heparin (5000 Units/0.5 ml)) 5,000 unit Q12 SC ; Start 07/17/16 at 21:00 Hydralazine HCl (Apresoline) 10 mg Q6H PRN IV SBP>160; Start 07/17/16 at 16:30 Hydromorphone HCl (Dilaudid) 1 mg Q4H PRN IV PAIN Last administered on 06:02; Admin Dose 1 MG; Start 07/17/16 at 16:30 Carvedilol (Coreg) 6.25 mg BID PO Last administered on 07/17/16 21:36; Admin Dose 6.25 MG; Start 07/17/16 at 21:00 Amlodipine Besylate (Norvasc) 5 mg DAILY PO ; Start 07/18/16 at 09:00 Hydralazine HCl (Apresoline) 10 mg Q4H PRN IV SBP>150 mm Hg ; Start 07/17/16 at 17:00 STEPHEN ZAZUETA M.D. July 18, 2016 10:04
[2016-07-18] MEDS ORDERED: LEUPROLIDE 7.5 MG INJ IM ONE (11:00)
[2016-07-18] MEDS: HEPARIN 5,000 UNIT/0.5 ML VIAL SC SCH (11:53)
[2016-07-18] MEDS: HYDROCODONE/APAP (5/325) TAB PO PRN ×2 (14:01→20:09)
--- NOTE | 2016-07-18 17:24 | CONS ---
Date/Time of Note Date/Time of Note DATE: 07/18/16 TIME: 17:21 Assessment/Plan Assessment/Plan Additional Assessment/Plan 1. Status post mechanical fall. 2. Right hip/right femur intertrochanteric fracture. 3. Comminuted right hip fracture. 4. End-stage renal disease on hemodialysis Thursday, and Thursday. The patient had his hemodialysis in the morning today. 5. Hypertension. 6. Hyperlipidemia. 7. History of polycystic kidney disease. Plan: HD ordered for tomorrow first in AM OR schedueld for tomorrow Bp stablw will follow fosamax Consultation Date/Type/Reason Admit Date/Time July 17, 2016 at 14:51 Initial Consult Date 07/17/16 Type of Consultation: NEPHROLOGY Reason for Consultation ESRD on HD with Hip fracture Referring Provider: DIONI DAWN NP 24 HR Interval Summary Free Text/Dictation Plan for OR tomorrrow, HD ordered for tomorrow first in AM Exam/Review of Systems Vital Signs Vitals Vital Signs Date Time Temp Pulse Resp B/P Pulse Ox O2 Delivery O2 Flow Rate FiO2 07/18/16 07:53 98.3 70 20 107/72 95 07/18/16 07:29 Nasal Cannula 3.0 Intake and Output 07/17/16 07/17/16 07/18/16 15:00 23:00 07:00 Intake Total 240 ml Output Total 100 ml Balance 140 ml Exam GENERAL: Awake, alert, mild distress due to the pain. HEENT: Normal. Oropharynx clear. NECK: Supple, no JVD, no lymphadenopathy. LUNGS: Clear to auscultation. No crackles, no wheezes. HEART: S1, S2, with regular rhythm, no murmur. ABDOMEN: Soft, nontender, nondistended. Bowel sounds are present. EXTREMITIES: The patient is tender to palpation in the right hip. Not able to move the right lower extremity. NEUROLOGICAL: Nonfocal, intact. PSYCHIATRIC: Appropriate affect and mood. Results Result Diagram: 07/18/16 0525 07/18/16 0525 Results 24 hrs Laboratory Tests Test 07/18/16 05:20 07/18/16 05:25 Phosphorus Level 6.0 H Magnesium Level 2.2 Triglycerides Level 107 Cholesterol Level 173 LDL Cholesterol, Calculated 84 HDL Cholesterol 68 Cholesterol/HDL Ratio 2.5 Thyroid Stimulating Hormone (TSH) 4.040 Free Triiodothyronine (T3) pg/mL 3.72 White Blood Count 9.7 # Red Blood Count 3.49 L Hemoglobin 10.5 L Hematocrit 34.0 L Mean Corpuscular Volume 97.4 Mean Corpuscular Hemoglobin 30.1 Mean Corpuscular Hemoglobin Concent 30.9 L Red Cell Distribution Width 14.7 H Platelet Count 187 # Mean Platelet Volume 10.6 H Neutrophils % 80.6 H Lymphocytes % 9.0 L Monocytes % 9.5 Eosinophils % 0.2 Basophils % 0.1 Nucleated Red Blood Cells % 0.0 Neutrophils # 7.8 H Lymphocytes # 0.9 Monocytes # 0.9 Eosinophils # 0.0 Basophils # 0.0 Nucleated Red Blood Cells # 0.0 Sodium Level 136 Potassium Level 5.4 H Chloride Level 95 L Carbon Dioxide Level 32 H Anion Gap 14 Blood Urea Nitrogen 32 #H Creatinine 4.15 #H Glucose Level 127 Hemoglobin A1c 4.9 Calcium Level 9.0 Prostate Specific Antigen 344.0 H Medications Medications Current Medications Lorazepam (Ativan) 0.5 mg Q6H PRN IV ANXIETY; Start 07/17/16 at 16:00 Ondansetron HCl (Zofran Inj) 4 mg Q6H PRN IV NAUSEA AND/OR VOMITING; Start at 16:00 Acetaminophen (Tylenol Tab) 650 mg Q6H PRN PO PAIN LEVEL 1-3 OR FEVER; Start at 16:00 Acetaminophen/ Hydrocodone Bitart ([place] (5/325)) 1 tab Q6H PRN PO PAIN LEVEL 4 -6 Last administered on 07/18/16 14:01; Admin Dose 1 TAB; Start 07/17/16 at 16: 00 Magnesium Hydroxide (Milk Of Mag) 30 ml DAILY PRN PO CONSTIPATION; Start at 16:00 Bisacodyl (Dulcolax) 5 mg DAILY PRN PO CONSTIPATION; Start 07/17/16 at 16:00 Famotidine (Pepcid) 20 mg Q24H PO Last administered on 07/17/16 21:36; Admin Dose 20 MG; Start 07/17/16 at 21:00 Hydralazine HCl (Apresoline) 10 mg Q6H PRN IV SBP>160; Start 07/17/16 at 16:30 Hydromorphone HCl (Dilaudid) 1 mg Q4H PRN IV PAIN Last administered on 06:02; Admin Dose 1 MG; Start 07/17/16 at 16:30 Carvedilol (Coreg) 6.25 mg BID PO Last administered on 07/18/16 10:07; Admin Dose 6.25 MG; Start 07/17/16 at 21:00 Amlodipine Besylate (Norvasc) 5 mg DAILY PO Last administered on 07/18/16 10: 07; Admin Dose 5 MG; Start 07/18/16 at 09:00 Hydralazine HCl (Apresoline) 10 mg Q4H PRN IV SBP>150 mm Hg ; Start 07/17/16 at 17:00 AME MESA MD July 18, 2016 17:24
[2016-07-18 19:58] VITALS: BP 124/82; RESP 20
[2016-07-18] MEDS: FAMOTIDINE 20 MG TAB PO SCH (21:42)
[2016-07-19] VITALS (41 sets, daily range): BP systolic 74–123; BP diastolic 48–88; PULSE 74–108; RESP 14–21
[2016-07-19] MEDS: HYDROmorphONE 1 MG/ML SYG IV PRN ×2 (02:08→06:53)
[2016-07-19] MEDS ORDERED: ALENDRONATE 70 MG TAB PO SCH (06:30)
[2016-07-19 06:58] LABS: ADD SCAN DIFF NO
[2016-07-19 07:06] LABS: BASOPHILS % 0.1 % (0.0-2.0); EOSINOPHILS % 0.2 % (0.0-7.0); HEMATOCRIT 37.6 % (42.0-52.0); HEMOGLOBIN 11.9 g/dl (14.0-18.0); LYMPHOCYTES # 1.1 10^3/ul (0.8-2.9); LYMPHOCYTES % 11.3 % (15.0-51.0); MEAN CORPUSCULAR HEMOGLOBIN 30.5 pg (29.0-33.0); MEAN CORPUSCULAR HGB CONC 31.6 g/dl (32.0-37.0); MEAN CORPUSCULAR VOLUME 96.4 fl (82.0-101.0); MEAN PLATELET VOLUME 10.8 fl (7.4-10.4); MONOCYTE # 0.8 10^3/ul (0.3-0.9); MONOCYTES % 7.6 % (0.0-11.0); NEUTROPHILS % 80.3 % (39.0-77.0); PLATELET COUNT 257 10^3/UL (140-415); RED CELL DISTRIBUTION WIDTH 14.7 % (11.5-14.5)
[2016-07-19] MEDS ORDERED: PROCHLORPERAZINE 10 MG INJ IV PRN (07:30)
[2016-07-19] MEDS ORDERED: OXYCODONE/ACETAMINOPHEN (5/325) TAB PO PRN ×2 (07:30)
[2016-07-19] MEDS ORDERED: FENTAnyl 50 MCG/ML VIAL IV PRN (07:30)
[2016-07-19] MEDS ORDERED: MEPERIDINE 25 MG INJ IV PRN (07:30)
[2016-07-19] MEDS ORDERED: HYDROmorphONE (0.2 MG/ML) 10ML SYG IV PRN ×2 (07:30)
[2016-07-19] MEDS ORDERED: ONDANSETRON 4 MG INJ IV PRN (07:30)
[2016-07-19] MEDS ORDERED: DIPHENHYDRAMINE 50 MG INJ IV PRN (07:30)
[2016-07-19 07:31] LABS: MAGNESIUM 2.4 mg/dl (1.7-2.5); PHOSPHORUS 7.6 mg/dl (2.5-4.9)
[2016-07-19 08:05] LABS: CALCIUM 9.1 mg/dl (8.4-10.2); CREATININE 6.26 mg/dl (0.61-1.24)
[2016-07-19] MEDS: AMLODIPINE 5 MG TAB PO SCH (08:26)
--- NOTE | 2016-07-19 09:33 | HPN ---
Date/Time of Note Date/Time of Note DATE: 07/19/16 TIME: 09:32 MARY COY MD July 19, 2016 09:33
[2016-07-19] MEDS ORDERED: MIDAZOLAM 1 MG/ML 2 ML INJ ONE (09:49)
[2016-07-19] MEDS ORDERED: PROPOFOL 20 ML ONE (09:49)
[2016-07-19] MEDS ORDERED: FENTAnyl 50 MCG/ML VIAL ONE (09:49)
[2016-07-19] MEDS ORDERED: LIDOCAINE 2% (SDV) 5 ML INJ ONE (09:49)
[2016-07-19] MEDS ORDERED: CEFAZOLIN 1 GM INJ ONE (09:49)
[2016-07-19] MEDS ORDERED: ROCURONIUM 50 MG INJ ONE (09:49)
[2016-07-19] MEDS ORDERED: PHENYLephrine (100 MCG/ML) 5ML SYG ONE (10:35)
[2016-07-19] MEDS ORDERED: ONDANSETRON 4 MG INJ ONE (10:58)
[2016-07-19] MEDS ORDERED: METOCLOPRAMIDE 10 MG INJ ONE (10:58)
[2016-07-19] MEDS ORDERED: POLYMYXIN/BACITRACIN 1L IRRIG ONE (11:01)
[2016-07-19] MEDS ORDERED: ALBUMIN HUMAN 5% 250 ML ONE (11:03)
[2016-07-19] MEDS ORDERED: ACETAMINOPHEN 1000MG/100ML IV 100 ML ONE (11:27)
[2016-07-19] MEDS ORDERED: HYDROmorphONE 2 MG/ML SYG ONE (11:37)
[2016-07-19] MEDS ORDERED: SOD CHLORIDE 0.9% 1,000 ML IV SCH (12:06)
[2016-07-19] MEDS ORDERED: EPHEDrine SULFATE 50 MG/5 ML SYG ONE (12:06)
--- NOTE | 2016-07-19 12:09 | PN ---
Date/Time of Note Date/Time of Note DATE: 07/19/16 TIME: 12:06 Assessment/Plan VTE Prophylaxis VTE Prophylaxis Intervention: heparin Lines/Catheters IV [facility] [place] [facility] Urinary Cath still in place: Yes Assessment/Plan Chief Complaint/Hosp Course Assessment and plan 1. Comminuted right intertrochanteric femoral neck fracture with displacement of the greater and lesser trochanters with varus angulation. Continue with analgesics. Patient for right hip ORIF. Follow-up with surgeon recommendations. Will follow postop and physical therapy to follow. 2. End-stage renal disease on dialysis. Fuel Operator following. Continue on HD per nephrology recommendations 3. Essential hypertension. On antihypertensives. Will adjust as needed. Stable at present. 4. Recently diagnosed metastatic adenocarcinoma of the prostate. Oncologist following. Continue the recommendations. 5. Normocytic normochromic anemia likely of chronic kidney disease. Appears stable at present. Will monitor H&H. Transfuse PRBC as needed. 7. Hypokalemia. Will monitor and replete as needed. DVT prophylaxis: His heparin. To resume status post surgical intervention GERD prophylaxis: H2 red Disposition and plan: Patient for right hip ORIF. Will follow postop. Analgesics as needed. Physical therapy to follow as well. Discussed plan of care with Dr. Santiago Problems: Subjective 24 Hr Interval Summary Free Text/Dictation Patient for right hip ORIF Exam/Review of Systems Vital Signs Vitals Vital Signs Date Time Temp Pulse Resp B/P Pulse Ox O2 Delivery O2 Flow Rate FiO2 07/19/16 08:15 87 07/19/16 08:15 12 07/19/16 07:41 97.4 93/57 95 07/19/16 00:17 Nasal Cannula 3.0 Intake and Output 07/18/16 07/18/16 07/19/16 15:00 23:00 07:00 Intake Total 840 ml 490 ml Output Total 150 ml 100 ml Balance 690 ml 390 ml Exam Patient for right hip ORIF Results Result Diagram: 07/19/16 0529 07/19/16 0529 Results 24 hrs Laboratory Tests Test 07/19/16 05:29 White Blood Count 10.0 Red Blood Count 3.90 L Hemoglobin 11.9 L Hematocrit 37.6 L Mean Corpuscular Volume 96.4 Mean Corpuscular Hemoglobin 30.5 Mean Corpuscular Hemoglobin Concent 31.6 L Red Cell Distribution Width 14.7 H Platelet Count 257 # Mean Platelet Volume 10.8 H Neutrophils % 80.3 H Lymphocytes % 11.3 L Monocytes % 7.6 Eosinophils % 0.2 Basophils % 0.1 Nucleated Red Blood Cells % 0.0 Neutrophils # 8.0 H Lymphocytes # 1.1 Monocytes # 0.8 Eosinophils # 0.0 Basophils # 0.0 Nucleated Red Blood Cells # 0.0 Sodium Level 136 Potassium Level 6.0 H Chloride Level 92 L Carbon Dioxide Level 28 Anion Gap 22 #H Blood Urea Nitrogen 49 #H Creatinine 6.26 #H Glucose Level 109 Calcium Level 9.1 Phosphorus Level 7.6 H Magnesium Level 2.4 Medications Medications Current Medications Lorazepam (Ativan) 0.5 mg Q6H PRN IV ANXIETY; Start 07/17/16 at 16:00 Ondansetron HCl (Zofran Inj) 4 mg Q6H PRN IV NAUSEA AND/OR VOMITING; Start at 16:00 Acetaminophen (Tylenol Tab) 650 mg Q6H PRN PO PAIN LEVEL 1-3 OR FEVER; Start at 16:00 Acetaminophen/ Hydrocodone Bitart ([place] (5/325)) 1 tab Q6H PRN PO PAIN LEVEL 4 -6 Last administered on 07/18/16 20:09; Admin Dose 1 TAB; Start 07/17/16 at 16: 00 Magnesium Hydroxide (Milk Of Mag) 30 ml DAILY PRN PO CONSTIPATION; Start at 16:00 Bisacodyl (Dulcolax) 5 mg DAILY PRN PO CONSTIPATION; Start 07/17/16 at 16:00 Famotidine (Pepcid) 20 mg Q24H PO Last administered on 07/18/16 21:42; Admin Dose 20 MG; Start 07/17/16 at 21:00 Hydralazine HCl (Apresoline) 10 mg Q6H PRN IV SBP>160; Start 07/17/16 at 16:30 Hydromorphone HCl (Dilaudid) 1 mg Q4H PRN IV PAIN Last administered on 06:53; Admin Dose 1 MG; Start 07/17/16 at 16:30 Carvedilol (Coreg) 6.25 mg BID PO Last administered on 07/18/16 21:43; Admin Dose 6.25 MG; Start 07/17/16 at 21:00 Amlodipine Besylate (Norvasc) 5 mg DAILY PO Last administered on 07/18/16 10: 07; Admin Dose 5 MG; Start 07/18/16 at 09:00 Hydralazine HCl (Apresoline) 10 mg Q4H PRN IV SBP>150 mm Hg ; Start 07/17/16 at 17:00 AYLEEN LEONE July 19, 2016 12:09
[2016-07-19] MEDS ORDERED: CEFAZOLIN 1 GM/50 ML (PMX) 50 ML IVPB SCH (12:30)
[2016-07-19] MEDS ORDERED: EPHEDrine SULFATE 50 MG/5 ML SYG IV PRN (12:30)
[2016-07-19] MEDS ORDERED: ALBUMIN HUMAN 5% 250 ML IV PRN (12:30)
[2016-07-19] MEDS ORDERED: morphine 4 MG/ML VIAL IV PRN (12:30)
[2016-07-19 12:47] LABS: ADD SCAN DIFF NO
--- NOTE | 2016-07-19 13:03 | CONS ---
Date/Time of Note Date/Time of Note DATE: 07/19/16 TIME: 13:02 Assessment/Plan Assessment/Plan Additional Assessment/Plan 1. Status post mechanical fall. 2. Right hip/right femur intertrochanteric fracture. 3. Comminuted right hip fracture. 4. End-stage renal disease on hemodialysis Thursday, and Thursday. The patient had his hemodialysis in the morning today. 5. Hypertension. 6. Hyperlipidemia. 7. History of polycystic kidney disease. Plan: s/p HD today AM tolerated well OR schedueld for today Bp stable will follow fosamax Consultation Date/Type/Reason Admit Date/Time July 17, 2016 at 14:51 Initial Consult Date 07/17/16 Type of Consultation: NEPHROLOGY Referring Provider: DIONI DAWN NP 24 HR Interval Summary Free Text/Dictation s/p HD today, plan for OR today Exam/Review of Systems Vital Signs Vitals Vital Signs Date Time Temp Pulse Resp B/P Pulse Ox O2 Delivery O2 Flow Rate FiO2 07/19/16 12:05 99.0 07/19/16 11:58 89 18 89/58 99 Nasal Cannula 2.0 Intake and Output 07/18/16 07/18/16 07/19/16 15:00 23:00 07:00 Intake Total 840 ml 240 ml Output Total 150 ml 100 ml Balance 690 ml 140 ml Exam GENERAL: Awake, alert, mild distress due to the pain. HEENT: Normal. Oropharynx clear. NECK: Supple, no JVD, no lymphadenopathy. LUNGS: Clear to auscultation. No crackles, no wheezes. HEART: S1, S2, with regular rhythm, no murmur. ABDOMEN: Soft, nontender, nondistended. Bowel sounds are present. EXTREMITIES: The patient is tender to palpation in the right hip. Not able to move the right lower extremity. NEUROLOGICAL: Nonfocal, intact. PSYCHIATRIC: Appropriate affect and mood. Results Result Diagram: 07/19/16 0529 07/19/16 05 Results 24 hrs Laboratory Tests Test 07/19/16 05:29 White Blood Count 10.0 Red Blood Count 3.90 L Hemoglobin 11.9 L Hematocrit 37.6 L Mean Corpuscular Volume 96.4 Mean Corpuscular Hemoglobin 30.5 Mean Corpuscular Hemoglobin Concent 31.6 L Red Cell Distribution Width 14.7 H Platelet Count 257 # Mean Platelet Volume 10.8 H Neutrophils % 80.3 H Lymphocytes % 11.3 L Monocytes % 7.6 Eosinophils % 0.2 Basophils % 0.1 Nucleated Red Blood Cells % 0.0 Neutrophils # 8.0 H Lymphocytes # 1.1 Monocytes # 0.8 Eosinophils # 0.0 Basophils # 0.0 Nucleated Red Blood Cells # 0.0 Sodium Level 136 Potassium Level 6.0 H Chloride Level 92 L Carbon Dioxide Level 28 Anion Gap 22 #H Blood Urea Nitrogen 49 #H Creatinine 6.26 #H Glucose Level 109 Calcium Level 9.1 Phosphorus Level 7.6 H Magnesium Level 2.4 Medications Medications Current Medications Lorazepam (Ativan) 0.5 mg Q6H PRN IV ANXIETY; Start 07/17/16 at 16:00 Ondansetron HCl (Zofran Inj) 4 mg Q6H PRN IV NAUSEA AND/OR VOMITING; Start at 16:00 Acetaminophen (Tylenol Tab) 650 mg Q6H PRN PO PAIN LEVEL 1-3 OR FEVER; Start at 16:00 Acetaminophen/ Hydrocodone Bitart ([place] (5/325)) 1 tab Q6H PRN PO PAIN LEVEL 4 -6 Last administered on 07/18/16 20:09; Admin Dose 1 TAB; Start 07/17/16 at 16: 00 Magnesium Hydroxide (Milk Of Mag) 30 ml DAILY PRN PO CONSTIPATION; Start at 16:00 Bisacodyl (Dulcolax) 5 mg DAILY PRN PO CONSTIPATION; Start 07/17/16 at 16:00 Famotidine (Pepcid) 20 mg Q24H PO Last administered on 07/18/16 21:42; Admin Dose 20 MG; Start 07/17/16 at 21:00 Hydralazine HCl (Apresoline) 10 mg Q6H PRN IV SBP>160; Start 07/17/16 at 16:30 Hydromorphone HCl (Dilaudid) 1 mg Q4H PRN IV PAIN Last administered on 06:53; Admin Dose 1 MG; Start 07/17/16 at 16:30 Carvedilol (Coreg) 6.25 mg BID PO Last administered on 07/18/16 21:43; Admin Dose 6.25 MG; Start 07/17/16 at 21:00 Amlodipine Besylate (Norvasc) 5 mg DAILY PO Last administered on 07/18/16t 10: 07; Admin Dose 5 MG; Start 07/18/16 at 09:00 Hydralazine HCl 10 mg 10 mg Q4H PRN IV SBP>150 mm Hg ; Start 07/17/16 at 17:00 Sodium Chloride (NS) 1,000 ml @ 100 mls/hr Q10H IV ; Start 07/19/16 at 12:06 Morphine Sulfate (morphine) 3 mg Q3H PRN IV PAIN; Start 07/19/16 at 12:30 Acetaminophen/ Hydrocodone Bitart 1 tab 1 tab Q3H PRN PO PAIN; Start 07/19/16 at 12:30 Cefazolin Sodium (Ancef 1 Gm/50 ml (Pmx)) 50 ml @ 100 mls/hr Q24H IVPB ; Start 07/20/16 at 10:00; Stop 07/20/16 at 11:00 Heparin Sodium (Porcine) (Heparin (5000 Units/0.5 ml)) 5,000 unit Q12 SC ; Start 07/20/16 at 09:00 AME MESA MD July 19, 2016 13:03
[2016-07-19 13:06] LABS: BASOPHILS % 0.2 % (0.0-2.0); EOSINOPHILS % 0.2 % (0.0-7.0); HEMOGLOBIN 9.8 g/dl (14.0-18.0); LYMPHOCYTES # 0.9 10^3/ul (0.8-2.9); LYMPHOCYTES % 11.1 % (15.0-51.0); MEAN CORPUSCULAR HEMOGLOBIN 30.3 pg (29.0-33.0); MEAN CORPUSCULAR HGB CONC 31.6 g/dl (32.0-37.0); MEAN PLATELET VOLUME 10.7 fl (7.4-10.4); MONOCYTE # 0.6 10^3/ul (0.3-0.9); MONOCYTES % 7.4 % (0.0-11.0); NEUTROPHIL # 6.6 10^3/ul (1.6-7.5); NEUTROPHILS % 80.6 % (39.0-77.0); PLATELET COUNT 151 10^3/UL (140-415); RED BLOOD COUNT 3.23 10^6/ul (4.70-6.10); RED CELL DISTRIBUTION WIDTH 14.6 % (11.5-14.5); WHITE BLOOD COUNT 8.1 10^3/ul (4.8-10.8)
--- NOTE | 2016-07-19 14:11 | RADRPT ---
PROCEDURE: XR Right femur CLINICAL INDICATION: Postop TECHNIQUE: 2 AP views were submitted of the right femur COMPARISON: Right hip series done 07/17/2016 FINDINGS: Osseous structures: Since the previous study, a comminuted intertrochanteric fracture fragments invo lving the proximal right femur have been satisfactory of the realigned and internally fixed by means of a long proximal femoral nail. The remaining osseous elements appear intact. Joint spaces: Mild degenerative changes seen about the right hip joint. Soft tissues: Subcutaneous air is seen within the soft tissues of the thigh and superficial toi are seen laterally. IMPRESSION: 1. Satisfactory realignment of the comminuted intertrochanteric fracture fragments of the proximal right femur which has been internally fixed by means of an elongated proximal femoral nail. 2. Postoperative subcutaneous air is evident and lateral toi have been placed. Physician Ashely Date Time Electronically viewed and signed by Physician Ashely on 07/19/2016 14:10 /
--- NOTE | 2016-07-19 15:37 | RADRPT ---
PROCEDURE: X-ray fluoroscopy guidance CLINICAL INDICATION: Injury, pain TECHNIQUE: Fluoroscopic guidance was utilized for right femoral ORIF. COMPARISON: None available FINDINGS: Intramedullary osvaldo is seen traversing a proximal femoral fracture. 203.4 seconds of fluoroscopy time was utilized for the procedure. 5 images were obtained during the procedure in progress. IMPRESSION: 1. X-ray fluoroscopic guidance, as above. RPTAT: QQ .Scotty Kaur MD, MD Date Time Electronically viewed and signed by .Scotty Kaur MD, MD on 07/19/2016 15:37 .R/
[2016-07-19] MEDS: HYDROCODONE/APAP (5/325) TAB PO PRN ×2 (19:31→22:33)
[2016-07-19] MEDS: FAMOTIDINE 20 MG TAB PO SCH (21:13)
[2016-07-20 07:48] VITALS: BP 113/84; RESP 22
[2016-07-20] MEDS: HYDROCODONE/APAP (5/325) TAB PO PRN ×3 (08:19→17:33)
[2016-07-20] MEDS: AMLODIPINE 5 MG TAB PO SCH (08:19)
[2016-07-20] MEDS: HEPARIN 5,000 UNIT/0.5 ML VIAL SC SCH ×2 (08:29→21:24)
[2016-07-20] MEDS ORDERED: ENOXAPARIN 40 MG/0.4 ML SYG SC SCH (09:00)
[2016-07-20] MEDS ORDERED: CEFAZOLIN 1 GM/50 ML (PMX) 50 ML IVPB SCH (10:00)
--- NOTE | 2016-07-20 15:53 | PN ---
Date/Time of Note Date/Time of Note DATE: 07/20/16 TIME: 15:50 Assessment/Plan VTE Prophylaxis VTE Prophylaxis Intervention: heparin Lines/Catheters IV [facility] Type [facility]from [facility] Saline Lock Urinary Cath still in place: Yes Reason Cath still needed: other (indicate) Assessment/Plan Chief Complaint/Hosp Course 1. Comminuted right intratrochanteric femoral neck fracture with displacement of the greater and lesser trochanters with varus angulation. The patient will be provided with adequate pain control. Status post surgical repair on 2016. 2. End-stage renal disease on hemodialysis. Patient being followed by nephrology. Hemodialysis as per nephrology. 3. Essential hypertension. The patient will be maintained on antihypertensives including p.r.n. antihypertensives for any systolic blood pressure readings greater than 160 mmHg. 4. 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 The patient being followed by oncology. 5. Normocytic normochromic anemia, most probably anemia of chronic kidney disease. The patient's hemoglobin and hematocrit will be monitored closely. The patient will be transfused as indicated. 6. Hyperkalemia. Management as per nephrology. 7. DVT prophylaxis with subcutaneous heparin. 8. Gastrointestinal prophylaxis. Histamine 2 receptor blockers. 9. Plan. Continue pain control. Await physical therapy. Case discussed with Dr. Santiago. Perioperative risk stratification: The patient has multiple comorbidities including end-stage renal disease on hemodialysis, essential hypertension, and metastatic prostate cancer. The patient has a underlying acute right hip fracture. Given the patient's comorbidities, he is at intermediate risk for untoward medical complications perioperatively. Nevertheless, the benefits would outweigh the risks of any surgical intervention for acute right hip fracture. Problems: Subjective 24 Hr Interval Summary Free Text/Dictation Right hip pain well controlled. Exam/Review of Systems Vital Signs Vitals Vital Signs Date Time Temp Pulse Resp B/P Pulse Ox O2 Delivery O2 Flow Rate FiO2 07/20/16 07:48 98.1 93 22 113/84 97 07/20/16 00:59 Nasal Cannula 3.0 Intake and Output 07/19/16 07/19/16 07/20/16 15:00 23:00 07:00 Intake Total 1050 ml 120 ml 400 ml Output Total 2300 ml Balance -1250 ml 120 ml 400 ml Exam GENERAL: This is a thin male lying in bed in no apparent distress. HEENT: Head normocephalic and atraumatic. Eyes: Anicteric sclerae. Conjunctivae clear. ENT: Nasal septum is midline. Oral mucosa is dry. NECK: Supple. No JVD noticed. RESPIRATORY: Bilateral diminished breath sounds. No adventitious breath sounds heard. No use of accessory muscles of respiration. CARDIAC: Regular rate and rhythm. S1, S2 heard. ABDOMEN: Soft, nontender and nondistended. Bowel sounds positive in all 4 quadrants. GENITOURINARY: Deferred. EXTREMITIES: Right upper extremity AV fistula with positive bruit and thrill. Right hip surgical dressing. Bilateral pedal pulses are palpable. NEUROLOGIC: The patient is awake, alert and oriented. Cranial nerves are grossly intact. Results Result Diagram: 07/19/16 1215 07/19/16 0529 Medications Medications Current Medications Lorazepam (Ativan) 0.5 mg Q6H PRN IV ANXIETY; Start 07/17/16 at 16:00 Ondansetron HCl (Zofran Inj) 4 mg Q6H PRN IV NAUSEA AND/OR VOMITING; Start at 16:00 Acetaminophen (Tylenol Tab) 650 mg Q6H PRN PO PAIN LEVEL 1-3 OR FEVER; Start at 16:00 Acetaminophen/ Hydrocodone Bitart ([place] (5/325)) 1 tab Q6H PRN PO PAIN LEVEL 4 -6 Last administered on 07/18/16 20:09; Admin Dose 1 TAB; Start 07/17/16 at 16: 00 Magnesium Hydroxide (Milk Of Mag) 30 ml DAILY PRN PO CONSTIPATION; Start at 16:00 Bisacodyl (Dulcolax) 5 mg DAILY PRN PO CONSTIPATION Last administered on 05:44; Admin Dose 5 MG; Start 07/17/16 at 16:00 Famotidine (Pepcid) 20 mg Q24H PO Last administered on 07/19/16 21:13; Admin Dose 20 MG; Start 07/17/16 at 21:00 Hydralazine HCl (Apresoline) 10 mg Q6H PRN IV SBP>160; Start 07/17/16 at 16:30 Hydromorphone HCl (Dilaudid) 1 mg Q4H PRN IV PAIN Last administered on 06:53; Admin Dose 1 MG; Start 07/17/16 at 16:30 Carvedilol (Coreg) 6.25 mg BID PO Last administered on 07/20/16 08:19; Admin Dose 6.25 MG; Start 07/17/16 at 21:00 Amlodipine Besylate (Norvasc) 5 mg DAILY PO Last administered on 07/20/16 08: 19; Admin Dose 5 MG; Start 07/18/16 at 09:00 Hydralazine HCl (Apresoline) 10 mg Q4H PRN IV SBP>150 mm Hg ; Start 07/17/16 at 17:00 Morphine Sulfate (morphine) 3 mg Q3H PRN IV PAIN; Start 07/19/16 at 12:30 Acetaminophen/ Hydrocodone Bitart ([place] (5/325)) 1 tab Q3H PRN PO PAIN Last administered on 07/20/16 12:29; Admin Dose 1 TAB; Start 07/19/16 at 12:30 Heparin Sodium (Porcine) (Heparin (5000 Units/0.5 ml)) 5,000 unit Q12 SC Last administered on 07/20/16 08:29; Admin Dose 5,000 UNIT; Start 07/20/16 at 09:00 DIONI DAWN NP July 20, 2016 15:53
--- NOTE | 2016-07-20 16:05 | CONS ---
Date/Time of Note Date/Time of Note DATE: 07/20/16 TIME: 16:03 Assessment/Plan Assessment/Plan Additional Assessment/Plan 1. Status post mechanical fall. 2. Right hip/right femur intertrochanteric fracture s/p Surgical repair on 07/19 3. Comminuted right hip fracture. 4. End-stage renal disease on hemodialysis Thursday, and Thursday. 5. Hypertension. 6. Hyperlipidemia. 7. History of polycystic kidney disease. Plan: S/p HD yesterday S/p surgery , pain controlled, no plan for HD tomorrow Bp stable will follow fosamax Consultation Date/Type/Reason Admit Date/Time July 17, 2016 at 14:51 Initial Consult Date 07/17/16 Type of Consultation: NEPHROLOGY Referring Provider: DIONI DAWN NP 24 HR Interval Summary Free Text/Dictation Bp stable, s/p Hd yesterday Exam/Review of Systems Vital Signs Vitals Vital Signs Date Time Temp Pulse Resp B/P Pulse Ox O2 Delivery O2 Flow Rate FiO2 07/20/16 07:48 98.1 93 22 113/84 97 07/20/16 00:59 Nasal Cannula 3.0 Intake and Output 07/19/16 07/19/16 07/20/16 15:00 23:00 07:00 Intake Total 1050 ml 120 ml 400 ml Output Total 2300 ml Balance -1250 ml 120 ml 400 ml Results Result Diagram: 07/19/16 1215 07/19/16 0529 Medications Medications Current Medications Lorazepam (Ativan) 0.5 mg Q6H PRN IV ANXIETY; Start 07/17/16 at 16:00 Ondansetron HCl (Zofran Inj) 4 mg Q6H PRN IV NAUSEA AND/OR VOMITING; Start at 16:00 Acetaminophen (Tylenol Tab) 650 mg Q6H PRN PO PAIN LEVEL 1-3 OR FEVER; Start at 16:00 Acetaminophen/ Hydrocodone Bitart ([place] (5/325)) 1 tab Q6H PRN PO PAIN LEVEL 4 -6 Last administered on 07/18/16t 20:09; Admin Dose 1 TAB; Start 07/17/16 at 16: 00 Magnesium Hydroxide (Milk Of Mag) 30 ml DAILY PRN PO CONSTIPATION; Start 5/18/ 17 at 16:00 Bisacodyl (Dulcolax) 5 mg DAILY PRN PO CONSTIPATION Last administered on 05:44; Admin Dose 5 MG; Start 07/17/16 at 16:00 Famotidine (Pepcid) 20 mg Q24H PO Last administered on 07/19/16 21:13; Admin Dose 20 MG; Start 07/17/16 at 21:00 Hydralazine HCl (Apresoline) 10 mg Q6H PRN IV SBP>160; Start 07/17/16 at 16:30 Hydromorphone HCl (Dilaudid) 1 mg Q4H PRN IV PAIN Last administered on 06:53; Admin Dose 1 MG; Start 07/17/16 at 16:30 Carvedilol (Coreg) 6.25 mg BID PO Last administered on 07/20/16 08:19; Admin Dose 6.25 MG; Start 07/17/16 at 21:00 Amlodipine Besylate (Norvasc) 5 mg DAILY PO Last administered on 07/20/16 08: 19; Admin Dose 5 MG; Start 07/18/16 at 09:00 Hydralazine HCl (Apresoline) 10 mg Q4H PRN IV SBP>150 mm Hg ; Start 07/17/16 at 17:00 Morphine Sulfate (morphine) 3 mg Q3H PRN IV PAIN; Start 07/19/16 at 12:30 Acetaminophen/ Hydrocodone Bitart ([place] (5/325)) 1 tab Q3H PRN PO PAIN Last administered on 07/20/16 12:29; Admin Dose 1 TAB; Start 07/19/16 at 12:30 Heparin Sodium (Porcine) (Heparin (5000 Units/0.5 ml)) 5,000 unit Q12 SC Last administered on 07/20/16 08:29; Admin Dose 5,000 UNIT; Start 07/20/16 at 09:00 AME MESA MD July 20, 2016 16:05
--- NOTE | 2016-07-20 18:24 | PN ---
DATE: 07/20/2016 First postop day. Stable vital signs. No fever. H and H today is 9.8/31.0. No signs of neurovasc ular compromise involving the right lower extremity. Postoperative x-rays revealed a satisfactory a lignment of the fracture. However, because of the comminution at the fracture site, combined with o steoporosis, it will be desirable not to bear any weight on right lower extremity for about 6 weeks and this has been ordered. Dictated By: ABIMBOLA KIRKLAND/VIOLA Conf#: [id number] DID#: [id number]
[2016-07-20 19:36] VITALS: BP 99/68; RESP 18
[2016-07-20 21:17] VITALS: BP 110/69; PULSE 93
[2016-07-20] MEDS: FAMOTIDINE 20 MG TAB PO SCH (22:02)
[2016-07-21] MEDS: HYDROCODONE/APAP (5/325) TAB PO PRN ×2 (02:50→14:55)
[2016-07-21 05:50] LABS: ADD SCAN DIFF NO
[2016-07-21 05:59] LABS: ABNORMAL IP MESSAGE 1; EOSINOPHILS # 0.1 10^3/ul (0.0-0.5); EOSINOPHILS % 1.2 % (0.0-7.0); HEMATOCRIT 26.5 % (42.0-52.0); HEMOGLOBIN 8.5 g/dl (14.0-18.0); LYMPHOCYTES # 0.4 10^3/ul (0.8-2.9); LYMPHOCYTES % 7.3 % (15.0-51.0); MEAN CORPUSCULAR HEMOGLOBIN 30.2 pg (29.0-33.0); MEAN CORPUSCULAR HGB CONC 32.1 g/dl (32.0-37.0); MEAN CORPUSCULAR VOLUME 94.3 fl (82.0-101.0); MEAN PLATELET VOLUME 10.5 fl (7.4-10.4); MONOCYTE # 0.5 10^3/ul (0.3-0.9); MONOCYTES % 8.1 % (0.0-11.0); NEUTROPHIL # 4.9 10^3/ul (1.6-7.5); NEUTROPHILS % 82.9 % (39.0-77.0); PLATELET COUNT 179 10^3/UL (140-415); RED BLOOD COUNT 2.81 10^6/ul (4.70-6.10); RED CELL DISTRIBUTION WIDTH 14.3 % (11.5-14.5); WHITE BLOOD COUNT 5.9 10^3/ul (4.8-10.8)
[2016-07-21 06:34] LABS: CREATININE 7.27 mg/dl (0.61-1.24)
[2016-07-21 06:35] LABS: CALCIUM 8.4 mg/dl (8.4-10.2)
[2016-07-21 06:45] LABS: POTASSIUM 5.2 mmol/L (3.5-5.1)
[2016-07-21 08:13] VITALS: BP 113/84; RESP 18
[2016-07-21] MEDS: AMLODIPINE 5 MG TAB PO SCH (09:39)
[2016-07-21] MEDS: HEPARIN 5,000 UNIT/0.5 ML VIAL SC SCH ×2 (09:41→20:36)
--- NOTE | 2016-07-21 12:01 | CONS ---
Date/Time of Note Date/Time of Note DATE: 07/21/16 TIME: 11:55 Assessment/Plan Assessment/Plan Chief Complaint/Hosp Course 70 yo with metastatic prostate cancer, newly diagnosed 2 months ago. Pt is s/p fracture of Left hip s/p/ L hemiarthoropasty and has now sustained a Right hip fracture. He is now s/p ORIF of right hip #Metastatic prostate cancer -need to continue Lupron and Casodex. Lupron should be continued on a q 3 month basis. This was supposed to have been given in the snf in April but per snf it was never started. -Case management to arrange for Lupron to be started at snf upon discharge. Per pharmacy lupron cannot be given in the hospital -will check testosterone level to asses if patient is already castrate resistant -check PSA # Left Hip fracture s/p Left hemiarthroplasty -pt needs Rad onc evaluation. Dr Iqbal called #Acute Right hip fracture -s/p ORIF. will need post op radiation. #bone mets -cont Ca/ Vitamin D and bisphosphate, -pt will need pamidronate q 3 months as an out patient Problems: Consultation Date/Type/Reason Admit Date/Time July 17, 2016 at 14:51 Initial Consult Date 07/18/16 Type of Consultation: Hematology Reason for Consultation metastatic prostate cancer Referring Provider: DIONI DAWN NP 24 HR Interval Summary Free Text/Dictation pt is s/p ORIF on 07/19. healing well from surgery. c/o post operative pain Exam/Review of Systems Vital Signs Vitals Vital Signs Date Time Temp Pulse Resp B/P Pulse Ox O2 Delivery O2 Flow Rate FiO2 07/21/16 08:13 98.4 93 18 113/84 95 07/20/16 00:59 Nasal Cannula 3.0 Intake and Output 07/20/16 07/20/16 07/21/16 15:00 23:00 07:00 Intake Total 50 ml 1200 ml Balance 50 ml 1200 ml Exam Constitutional: alert, oriented Head: normocephalic Eyes: nl conjunctiva ENMT: nl external ears & nose Neck: non-tender, supple Respiratory: clear to auscultation, normal air movement Cardiovascular: regular rate and rhythm Gastrointestinal: soft Musculoskeletal: muscle weakness, range of motion (right leg decreased range of motion) Results Result Diagram: 07/21/16 0520 07/21/16 0520 Results 24 hrs Laboratory Tests Test 07/21/16 05:20 White Blood Count 5.9 # Red Blood Count 2.81 L Hemoglobin 8.5 L Hematocrit 26.5 L Mean Corpuscular Volume 94.3 Mean Corpuscular Hemoglobin 30.2 Mean Corpuscular Hemoglobin Concent 32.1 Red Cell Distribution Width 14.3 Platelet Count 179 Mean Platelet Volume 10.5 H Neutrophils % 82.9 H Lymphocytes % 7.3 L Monocytes % 8.1 Eosinophils % 1.2 Basophils % 0.0 Nucleated Red Blood Cells % 0.0 Neutrophils # 4.9 Lymphocytes # 0.4 L Monocytes # 0.5 Eosinophils # 0.1 Basophils # 0.0 Nucleated Red Blood Cells # 0.0 Sodium Level 134 L Potassium Level 5.2 H Chloride Level 93 L Carbon Dioxide Level 25 Anion Gap 21 H Blood Urea Nitrogen 56 H Creatinine 7.27 H Glucose Level 102 Calcium Level 8.4 Phosphorus Level 8.0 H Magnesium Level 2.0 Medications Medications Current Medications Lorazepam (Ativan) 0.5 mg Q6H PRN IV ANXIETY; Start 07/17/16 at 16:00 Ondansetron HCl (Zofran Inj) 4 mg Q6H PRN IV NAUSEA AND/OR VOMITING; Start at 16:00 Acetaminophen (Tylenol Tab) 650 mg Q6H PRN PO PAIN LEVEL 1-3 OR FEVER; Start at 16:00 Acetaminophen/ Hydrocodone Bitart ([place] (5/325)) 1 tab Q6H PRN PO PAIN LEVEL 4 -6 Last administered on 07/21/16 02:50; Admin Dose 1 TAB; Start 07/17/16 at 16: 00 Magnesium Hydroxide (Milk Of Mag) 30 ml DAILY PRN PO CONSTIPATION; Start at 16:00 Bisacodyl (Dulcolax) 5 mg DAILY PRN PO CONSTIPATION Last administered on 05:44; Admin Dose 5 MG; Start 07/17/16 at 16:00 Famotidine (Pepcid) 20 mg Q24H PO Last administered on 07/20/16 22:02; Admin Dose 20 MG; Start 07/17/16 at 21:00 Hydralazine HCl (Apresoline) 10 mg Q6H PRN IV SBP>160; Start 07/17/16 at 16:30 Hydromorphone HCl (Dilaudid) 1 mg Q4H PRN IV PAIN Last administered on 06:53; Admin Dose 1 MG; Start 07/17/16 at 16:30 Carvedilol (Coreg) 6.25 mg BID PO Last administered on 07/21/16 09:39; Admin Dose 6.25 MG; Start 07/17/16 at 21:00 Amlodipine Besylate (Norvasc) 5 mg DAILY PO Last administered on 07/21/16 09: 39; Admin Dose 5 MG; Start 07/18/16 at 09:00 Hydralazine HCl (Apresoline) 10 mg Q4H PRN IV SBP>150 mm Hg ; Start 07/17/16 at 17:00 Morphine Sulfate (morphine) 3 mg Q3H PRN IV PAIN; Start 07/19/16 at 12:30 Acetaminophen/ Hydrocodone Bitart ([place] (5/325)) 1 tab Q3H PRN PO PAIN Last administered on 07/20/16 17:33; Admin Dose 1 TAB; Start 07/19/16 at 12:30 Heparin Sodium (Porcine) (Heparin (5000 Units/0.5 ml)) 5,000 unit Q12 SC Last administered on 07/21/16 09:41; Admin Dose 5,000 UNIT; Start 07/20/16 at 09:00 STEPHEN ZAZUETA M.D. July 21, 2016 12:01
--- NOTE | 2016-07-21 12:14 | PN ---
Date/Time of Note Date/Time of Note DATE: 07/21/16 TIME: 12:13 Assessment/Plan VTE Prophylaxis VTE Prophylaxis Intervention: heparin Lines/Catheters IV C[facility]ter Type (from [facility]): Saline Lock Urinary Cath still in place: No Assessment/Plan Chief Complaint/Hosp Course 1. Comminuted right intratrochanteric femoral neck fracture with displacement of the greater and lesser trochanters with varus angulation. Status post surgical repair. Continue analgesics. Physical therapy evaluation. 2. End-stage renal disease on hemodialysis. Patient being followed by nephrology. Hemodialysis as per nephrology. 3. Essential hypertension. The patient will be maintained on antihypertensives including p.r.n. antihypertensives for any systolic blood pressure readings greater than 160 mmHg. 4. 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 The patient being followed by oncology. 5. Normocytic normochromic anemia, most probably anemia of chronic kidney disease. The patient's hemoglobin and hematocrit will be monitored closely. The patient will be transfused as indicated. 6. Hyperkalemia. Management as per nephrology. 7. DVT prophylaxis with subcutaneous heparin. 8. Gastrointestinal prophylaxis. Histamine 2 receptor blockers. 9. Plan. Continue pain control. Await physical therapy evaluation. Case discussed with Dr. Rojo. Problems: Subjective 24 Hr Interval Summary Free Text/Dictation Right hip pain well controlled. Exam/Review of Systems Vital Signs Vitals Vital Signs Date Time Temp Pulse Resp B/P Pulse Ox O2 Delivery O2 Flow Rate FiO2 07/21/16 08:13 98.4 93 18 113/84 95 07/20/16 00:59 Nasal Cannula 3.0 Intake and Output 07/20/16 07/20/16 07/21/16 15:00 23:00 07:00 Intake Total 50 ml 1200 ml Balance 50 ml 1200 ml Exam GENERAL: This is a thin male lying in bed in no apparent distress. HEENT: Head normocephalic and atraumatic. Eyes: Anicteric sclerae. Conjunctivae clear. ENT: Nasal septum is midline. Oral mucosa is dry. NECK: Supple. No JVD noticed. RESPIRATORY: Bilateral diminished breath sounds. No adventitious breath sounds heard. No use of accessory muscles of respiration. CARDIAC: Regular rate and rhythm. S1, S2 heard. ABDOMEN: Soft, nontender and nondistended. Bowel sounds positive in all 4 quadrants. GENITOURINARY: Deferred. EXTREMITIES: Right upper extremity AV fistula with positive bruit and thrill. Right hip surgical dressing. Bilateral pedal pulses are palpable. NEUROLOGIC: The patient is awake, alert and oriented. Cranial nerves are grossly intact. Results Result Diagram: 07/21/1651907/21/16 0520 Results 24 hrs Laboratory Tests Test 07/21/16 05:20 White Blood Count 5.9 # Red Blood Count 2.81 L Hemoglobin 8.5 L Hematocrit 26.5 L Mean Corpuscular Volume 94.3 Mean Corpuscular Hemoglobin 30.2 Mean Corpuscular Hemoglobin Concent 32.1 Red Cell Distribution Width 14.3 Platelet Count 179 Mean Platelet Volume 10.5 H Neutrophils % 82.9 H Lymphocytes % 7.3 L Monocytes % 8.1 Eosinophils % 1.2 Basophils % 0.0 Nucleated Red Blood Cells % 0.0 Neutrophils # 4.9 Lymphocytes # 0.4 L Monocytes # 0.5 Eosinophils # 0.1 Basophils # 0.0 Nucleated Red Blood Cells # 0.0 Sodium Level 134 L Potassium Level 5.2 H Chloride Level 93 L Carbon Dioxide Level 25 Anion Gap 21 H Blood Urea Nitrogen 56 H Creatinine 7.27 H Glucose Level 102 Calcium Level 8.4 Phosphorus Level 8.0 H Magnesium Level 2.0 Medications Medications Current Medications Lorazepam (Ativan) 0.5 mg Q6H PRN IV ANXIETY; Start 07/17/16 at 16:00 Ondansetron HCl (Zofran Inj) 4 mg Q6H PRN IV NAUSEA AND/OR VOMITING; Start at 16:00 Acetaminophen (Tylenol Tab) 650 mg Q6H PRN PO PAIN LEVEL 1-3 OR FEVER; Start at 16:00 Acetaminophen/ Hydrocodone Bitart ([place] (5/325)) 1 tab Q6H PRN PO PAIN LEVEL 4 -6 Last administered on 07/21/16 02:50; Admin Dose 1 TAB; Start 07/17/16 at 16: 00 Magnesium Hydroxide (Milk Of Mag) 30 ml DAILY PRN PO CONSTIPATION; Start at 16:00 Bisacodyl (Dulcolax) 5 mg DAILY PRN PO CONSTIPATION Last administered on 05:44; Admin Dose 5 MG; Start 07/17/16 at 16:00 Famotidine (Pepcid) 20 mg Q24H PO Last administered on 07/20/16 22:02; Admin Dose 20 MG; Start 07/17/16 at 21:00 Hydralazine HCl (Apresoline) 10 mg Q6H PRN IV SBP>160; Start 07/17/16 at 16:30 Hydromorphone HCl (Dilaudid) 1 mg Q4H PRN IV PAIN Last administered on 06:53; Admin Dose 1 MG; Start 07/17/16 at 16:30 Carvedilol (Coreg) 6.25 mg BID PO Last administered on 07/21/16 09:39; Admin Dose 6.25 MG; Start 07/17/16 at 21:00 Amlodipine Besylate (Norvasc) 5 mg DAILY PO Last administered on 07/21/16 09: 39; Admin Dose 5 MG; Start 07/18/16 at 09:00 Hydralazine HCl (Apresoline) 10 mg Q4H PRN IV SBP>150 mm Hg ; Start 07/17/16 at 17:00 Morphine Sulfate (morphine) 3 mg Q3H PRN IV PAIN; Start 07/19/16 at 12:30 Acetaminophen/ Hydrocodone Bitart ([place] (5/325)) 1 tab Q3H PRN PO PAIN Last administered on 07/20/16 17:33; Admin Dose 1 TAB; Start 07/19/16 at 12:30 Heparin Sodium (Porcine) (Heparin (5000 Units/0.5 ml)) 5,000 unit Q12 SC Last administered on 07/21/16 09:41; Admin Dose 5,000 UNIT; Start 07/20/16 at 09:00 DIONI DAWN NP July 21, 2016 12:14
--- NOTE | 2016-07-21 17:44 | CONS ---
Date/Time of Note Date/Time of Note DATE: 07/21/16 TIME: 17:43 Assessment/Plan Assessment/Plan Additional Assessment/Plan 1. Status post mechanical fall. 2. Right hip/right femur intertrochanteric fracture s/p Surgical repair on 07/19 3. Comminuted right hip fracture. 4. End-stage renal disease on hemodialysis Thursday, and Thursday. 5. Hypertension. 6. Hyperlipidemia. 7. History of polycystic kidney disease. Plan: S/p surgery , pain controlled, no plan for HD tomorrow will cesia queen Consultation Date/Type/Reason Admit Date/Time July 17, 2016 at 14:51 Initial Consult Date 07/17/16 Type of Consultation: NEPHROLOGY Referring Provider: DIONI DAWN NP 24 HR Interval Summary Free Text/Dictation S/p HD on thursday, BP stable Exam/Review of Systems Vital Signs Vitals Vital Signs Date Time Temp Pulse Resp B/P Pulse Ox O2 Delivery O2 Flow Rate FiO2 07/21/16 08:13 98.4 93 18 113/84 95 07/20/16 00:59 Nasal Cannula 3.0 Intake and Output 07/20/16 07/20/16 07/21/16 14:59 22:59 06:59 Intake Total 50 ml 1200 ml Balance 50 ml 1200 ml Exam Constitutional: alert, oriented Head: normocephalic Eyes: nl conjunctiva ENMT: nl external ears & nose Neck: non-tender, supple Respiratory: clear to auscultation, normal air movement Cardiovascular: regular rate and rhythm Gastrointestinal: soft Musculoskeletal: muscle weakness, range of motion (right leg decreased range of motion) Results Result Diagram: 07/21/1620 07/21/16 0520 Results 24 hrs Laboratory Tests Test 07/21/16 05:20 White Blood Count 5.9 # Red Blood Count 2.81 L Hemoglobin 8.5 L Hematocrit 26.5 L Mean Corpuscular Volume 94.3 Mean Corpuscular Hemoglobin 30.2 Mean Corpuscular Hemoglobin Concent 32.1 Red Cell Distribution Width 14.3 Platelet Count 179 Mean Platelet Volume 10.5 H Neutrophils % 82.9 H Lymphocytes % 7.3 L Monocytes % 8.1 Eosinophils % 1.2 Basophils % 0.0 Nucleated Red Blood Cells % 0.0 Neutrophils # 4.9 Lymphocytes # 0.4 L Monocytes # 0.5 Eosinophils # 0.1 Basophils # 0.0 Nucleated Red Blood Cells # 0.0 Sodium Level 134 L Potassium Level 5.2 H Chloride Level 93 L Carbon Dioxide Level 25 Anion Gap 21 H Blood Urea Nitrogen 56 H Creatinine 7.27 H Glucose Level 102 Calcium Level 8.4 Phosphorus Level 8.0 H Magnesium Level 2.0 Medications Medications Current Medications Lorazepam (Ativan) 0.5 mg Q6H PRN IV ANXIETY; Start 07/17/16 at 16:00 Ondansetron HCl (Zofran Inj) 4 mg Q6H PRN IV NAUSEA AND/OR VOMITING; Start at 16:00 Acetaminophen (Tylenol Tab) 650 mg Q6H PRN PO PAIN LEVEL 1-3 OR FEVER; Start at 16:00 Acetaminophen/ Hydrocodone Bitart ([place] (5/325)) 1 tab Q6H PRN PO PAIN LEVEL 4 -6 Last administered on 07/21/16 02:50; Admin Dose 1 TAB; Start 07/17/16 at 16: 00 Magnesium Hydroxide (Milk Of Mag) 30 ml DAILY PRN PO CONSTIPATION; Start at 16:00 Bisacodyl (Dulcolax) 5 mg DAILY PRN PO CONSTIPATION Last administered on 05:44; Admin Dose 5 MG; Start 07/17/16 at 16:00 Famotidine (Pepcid) 20 mg Q24H PO Last administered on 07/20/16 22:02; Admin Dose 20 MG; Start 07/17/16 at 21:00 Hydralazine HCl (Apresoline) 10 mg Q6H PRN IV SBP>160; Start 07/17/16 at 16:30 Hydromorphone HCl (Dilaudid) 1 mg Q4H PRN IV PAIN Last administered on 06:53; Admin Dose 1 MG; Start 07/17/16 at 16:30 Carvedilol (Coreg) 6.25 mg BID PO Last administered on 07/21/16 09:39; Admin Dose 6.25 MG; Start 07/17/16 at 21:00 Amlodipine Besylate (Norvasc) 5 mg DAILY PO Last administered on 07/21/16 09: 39; Admin Dose 5 MG; Start 07/18/16 at 09:00 Hydralazine HCl (Apresoline) 10 mg Q4H PRN IV SBP>150 mm Hg ; Start 07/17/16 at 17:00 Morphine Sulfate (morphine) 3 mg Q3H PRN IV PAIN; Start 07/19/16 at 12:30 Acetaminophen/ Hydrocodone Bitart ([place] (5/325)) 1 tab Q3H PRN PO PAIN Last administered on 07/21/16 14:55; Admin Dose 1 TAB; Start 07/19/16 at 12:30 Heparin Sodium (Porcine) (Heparin (5000 Units/0.5 ml)) 5,000 unit Q12 SC Last administered on 07/21/16 09:41; Admin Dose 5,000 UNIT; Start 07/20/16 at 09:00 AME MESA MD July 21, 2016 17:44
--- NOTE | 2016-07-21 18:09 | OPR ---
DATE OF OPERATION: 07/19/2016 PREOPERATIVE DIAGNOSIS: Intertrochanteric fracture of the right hip. POSTOPERATIVE DIAGNOSIS: Intertrochanteric fracture of the right hip. OPERATION PERFORMED: Open reduction and internal fixation of the intertrochanteric fracture of the right hip. ANESTHESIA: General anesthesia. SURGEON: Abimbola Coy MD PROCEDURE AND FINDINGS: Under general anesthesia, the patient was placed in supine position upon th e operating table. Usual prep and drape was done exposing the right hip and right thigh. My intera ctive reduction utilizing the fracture table and under fluoroscopic guidance carried out until an ac ceptable alignment could be achieved. The trochanteric area of the right hip was approached through the small lateral longitudinal incisio n. After opening fascia hilary, the tip of the greater trochanter was identified, and through the tip intramedullary canal was entered with the guide pin. After confirming satisfactory position of the guide drill, opening was enlarged with the cannulated drill and the reamer guide was introduced int o the intramedullary canal. After proper adjustment, the measurement was made and it was my estimat ion that we should use the 34 cm long x 11.5 mm nail with the 125 degree angle. After reaming along the reamer guide, the intramedullary nail of the proper size was inserted. After rotatory adjustme nt, a guide pin for the lag screw was properly positioned and the measurement revealed that the prop er length of the lag screw should be 85 mm. After reaming along the guide pin, the selected lag scr ew was properly positioned. After obtaining some compression at the fracture site, the lag screw wa s properly locked. After confirming satisfactory alignment of the fracture and proper position of t he fixation device and after irrigation and hemostasis of the wound, closure of the incision was car ried out using 0 Vicryl for muscle and fascia and 2-0 Vicryl for subcutaneous tissues. Final skin c losure was carried out with skin toi. The patient tolerated the entire procedure very well and was sent to the recovery room in good condi tion. Dictated By: ABIMBOLA COY MD IK/NTS Conf#: [id number] DID#: [id number]
[2016-07-21 20:00] VITALS: BP 115/70; RESP 16
[2016-07-21] MEDS: FAMOTIDINE 20 MG TAB PO SCH (20:29)
[2016-07-22] VITALS (9 sets, daily range): BP systolic 107–128; BP diastolic 67–77; PULSE 70–82; RESP 16
[2016-07-22 05:47] LABS: ADD SCAN DIFF NO
[2016-07-22 05:54] LABS: ABNORMAL IP MESSAGE 1; BASOPHILS % 0.2 % (0.0-2.0); EOSINOPHILS # 0.3 10^3/ul (0.0-0.5); EOSINOPHILS % 5.2 % (0.0-7.0); HEMATOCRIT 24.6 % (42.0-52.0); HEMOGLOBIN 7.8 g/dl (14.0-18.0); LYMPHOCYTES # 0.6 10^3/ul (0.8-2.9); LYMPHOCYTES % 9.1 % (15.0-51.0); MEAN CORPUSCULAR HEMOGLOBIN 29.5 pg (29.0-33.0); MEAN CORPUSCULAR HGB CONC 31.7 g/dl (32.0-37.0); MEAN CORPUSCULAR VOLUME 93.2 fl (82.0-101.0); MEAN PLATELET VOLUME 10.3 fl (7.4-10.4); MONOCYTE # 0.5 10^3/ul (0.3-0.9); MONOCYTES % 8.3 % (0.0-11.0); NEUTROPHIL # 4.7 10^3/ul (1.6-7.5); NEUTROPHILS % 76.7 % (39.0-77.0); PLATELET COUNT 238 10^3/UL (140-415); RED BLOOD COUNT 2.64 10^6/ul (4.70-6.10); WHITE BLOOD COUNT 6.1 10^3/ul (4.8-10.8)
[2016-07-22 06:08] LABS: CALCIUM 8.5 mg/dl (8.4-10.2); CREATININE 8.67 mg/dl (0.61-1.24); POTASSIUM 5.7 mmol/L (3.5-5.1)
[2016-07-22 06:25] LABS: PHOSPHORUS 8.3 mg/dl (2.5-4.9)
[2016-07-22 06:26] LABS: MAGNESIUM 2.3 mg/dl (1.7-2.5)
--- NOTE | 2016-07-22 07:29 | PN ---
Date/Time of Note Date/Time of Note DATE: 07/22/16 TIME: 07:27 Assessment/Plan VTE Prophylaxis VTE Prophylaxis Intervention: SCD's Lines/Catheters IV [facility] Saline Lock Urinary Cath still in place: No Assessment/Plan Chief Complaint/Hosp Course 1. Comminuted right intratrochanteric femoral neck fracture with displacement of the greater and lesser trochanters with varus angulation. Status post surgical repair. Continue analgesics. Continue physical therapy. 2. End-stage renal disease on hemodialysis. Patient being followed by nephrology. Hemodialysis as per nephrology. 3. Essential hypertension. The patient will be maintained on antihypertensives including p.r.n. antihypertensives for any systolic blood pressure readings greater than 160 mmHg. 4. 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 The patient being followed by oncology. 5. Normocytic normochromic anemia, most probably anemia of chronic kidney disease. The patient's hemoglobin and hematocrit will be monitored closely. The patient will be transfused as indicated. 6. Hyperkalemia. Management as per nephrology. 7. DVT prophylaxis with subcutaneous heparin. Will hold the heparin because of worsening anemia. 8. Gastrointestinal prophylaxis. Histamine 2 receptor blockers. 9. Plan. Continue pain control. Continue physical therapy. Transfuse 2 units of PRBC today with HD. Case discussed with Dr. Rojo. Problems: Subjective 24 Hr Interval Summary Free Text/Dictation Complains of right hip pain. Exam/Review of Systems Vital Signs Vitals Vital Signs Date Time Temp Pulse Resp B/P Pulse Ox O2 Delivery O2 Flow Rate FiO2 07/21/16 20:00 98.9 77 16 115/70 93 07/20/16 00:59 Nasal Cannula 3.0 Intake and Output 07/21/16 07/21/16 07/22/16 15:00 23:00 07:00 Intake Total 480 ml 1080 ml Output Total 200 ml 200 ml Balance 280 ml 880 ml Exam GENERAL: This is a thin male lying in bed in no apparent distress. HEENT: Head normocephalic and atraumatic. Eyes: Anicteric sclerae. Conjunctivae clear. ENT: Nasal septum is midline. Oral mucosa is dry. NECK: Supple. No JVD noticed. RESPIRATORY: Bilateral diminished breath sounds. No adventitious breath sounds heard. No use of accessory muscles of respiration. CARDIAC: Regular rate and rhythm. S1, S2 heard. ABDOMEN: Soft, nontender and nondistended. Bowel sounds positive in all 4 quadrants. GENITOURINARY: Deferred. EXTREMITIES: Right upper extremity AV fistula with positive bruit and thrill. Right hip surgical dressing. Bilateral pedal pulses are palpable. NEUROLOGIC: The patient is awake, alert and oriented. Cranial nerves are grossly intact. Results Result Diagram: 07/22/16 0505 07/22/16 0515 Results 24 hrs Laboratory Tests Test 07/22/16 05:05 07/22/16 05:15 White Blood Count 6.1 Red Blood Count 2.64 L Hemoglobin 7.8 L Hematocrit 24.6 L Mean Corpuscular Volume 93.2 Mean Corpuscular Hemoglobin 29.5 Mean Corpuscular Hemoglobin Concent 31.7 L Red Cell Distribution Width 14.0 Platelet Count 238 # Mean Platelet Volume 10.3 Neutrophils % 76.7 Lymphocytes % 9.1 L Monocytes % 8.3 Eosinophils % 5.2 Basophils % 0.2 Nucleated Red Blood Cells % 0.0 Neutrophils # 4.7 Lymphocytes # 0.6 L Monocytes # 0.5 Eosinophils # 0.3 Basophils # 0.0 Nucleated Red Blood Cells # 0.0 Sodium Level 131 L Potassium Level 5.7 H Chloride Level 94 L Carbon Dioxide Level 25 Anion Gap 18 H Blood Urea Nitrogen 67 H Creatinine 8.67 H Glucose Level 98 Calcium Level 8.5 Phosphorus Level 8.3 H Magnesium Level 2.3 Medications Medications Current Medications Lorazepam (Ativan) 0.5 mg Q6H PRN IV ANXIETY; Start 07/17/16 at 16:00 Ondansetron HCl (Zofran Inj) 4 mg Q6H PRN IV NAUSEA AND/OR VOMITING; Start at 16:00 Acetaminophen (Tylenol Tab) 650 mg Q6H PRN PO PAIN LEVEL 1-3 OR FEVER; Start at 16:00 Acetaminophen/ Hydrocodone Bitart ([place] (5/325)) 1 tab Q6H PRN PO PAIN LEVEL 4 -6 Last administered on 07/21/16t 02:50; Admin Dose 1 TAB; Start 07/17/16 at 16: 00 Magnesium Hydroxide (Milk Of Mag) 30 ml DAILY PRN PO CONSTIPATION; Start at 16:00 Bisacodyl (Dulcolax) 5 mg DAILY PRN PO CONSTIPATION Last administered on 05:44; Admin Dose 5 MG; Start 07/17/16 at 16:00 Famotidine (Pepcid) 20 mg Q24H PO Last administered on 07/21/16 20:29; Admin Dose 20 MG; Start 07/17/16 at 21:00 Hydralazine HCl (Apresoline) 10 mg Q6H PRN IV SBP>160; Start 07/17/16 at 16:30 Hydromorphone HCl (Dilaudid) 1 mg Q4H PRN IV PAIN Last administered on 06:53; Admin Dose 1 MG; Start 07/17/16 at 16:30 Carvedilol (Coreg) 6.25 mg BID PO Last administered on 07/21/16 20:30; Admin Dose 6.25 MG; Start 07/17/16 at 21:00 Amlodipine Besylate (Norvasc) 5 mg DAILY PO Last administered on 07/21/16 09: 39; Admin Dose 5 MG; Start 07/18/16 at 09:00 Hydralazine HCl (Apresoline) 10 mg Q4H PRN IV SBP>150 mm Hg ; Start 07/17/16 at 17:00 Morphine Sulfate (morphine) 3 mg Q3H PRN IV PAIN; Start 07/19/16 at 12:30 Acetaminophen/ Hydrocodone Bitart ([place] (5/325)) 1 tab Q3H PRN PO PAIN Last administered on 07/21/16 14:55; Admin Dose 1 TAB; Start 07/19/16 at 12:30 Heparin Sodium (Porcine) (Heparin (5000 Units/0.5 ml)) 5,000 unit Q12 SC Last administered on 07/21/16 20:36; Admin Dose 5,000 UNIT; Start 07/20/16 at 09:00 DIONI DAWN NP July 22, 2016 07:29
[2016-07-22] MEDS ORDERED: SOD CHLORIDE 0.9% 250 ML IV* ONE (07:54)
[2016-07-22] MEDS: AMLODIPINE 5 MG TAB PO SCH (09:00)
--- NOTE | 2016-07-22 09:01 | CONS ---
Date/Time of Note Date/Time of Note DATE: 07/22/16 TIME: 08:57 Assessment/Plan Assessment/Plan Additional Assessment/Plan 1. Status post mechanical fall. 2. Right hip/right femur intertrochanteric fracture s/p Surgical repair on 07/19 3. Comminuted right hip fracture. 4. End-stage renal disease on hemodialysis Thursday, and Thursday. 5. Hypertension. 6. Hyperlipidemia. 7. History of polycystic kidney disease. Plan: S/p surgery , pain controlled, HD today with 2 units PRBC will follow up Consultation Date/Type/Reason Admit Date/Time July 17, 2016 at 14:51 Initial Consult Date 07/17/16 Type of Consultation: NEPHROLOGY Referring Provider: DIONI DAWN NP 24 HR Interval Summary Free Text/Dictation BP stable, afebrile, c/o right hip pain, plan for HD today with 2 units PRBC Exam/Review of Systems Vital Signs Vitals Vital Signs Date Time Temp Pulse Resp B/P Pulse Ox O2 Delivery O2 Flow Rate FiO2 07/21/16 20:00 98.9 77 16 115/70 93 07/20/16 00:59 Nasal Cannula 3.0 Intake and Output 07/21/16 07/21/16 07/22/16 15:00 23:00 07:00 Intake Total 480 ml 1080 ml Output Total 200 ml 200 ml Balance 280 ml 880 ml Exam Constitutional: alert, oriented Head: normocephalic Eyes: nl conjunctiva ENMT: nl external ears & nose Neck: non-tender, supple Respiratory: clear to auscultation, normal air movement Cardiovascular: regular rate and rhythm Gastrointestinal: soft Musculoskeletal: muscle weakness, range of motion (right leg decreased range of motion) Results Result Diagram: 07/22/16 0505 07/22/16 0515 Results 24 hrs Laboratory Tests Test 07/22/16 05:05 07/22/16 05:15 White Blood Count 6.1 Red Blood Count 2.64 L Hemoglobin 7.8 L Hematocrit 24.6 L Mean Corpuscular Volume 93.2 Mean Corpuscular Hemoglobin 29.5 Mean Corpuscular Hemoglobin Concent 31.7 L Red Cell Distribution Width 14.0 Platelet Count 238 # Mean Platelet Volume 10.3 Neutrophils % 76.7 Lymphocytes % 9.1 L Monocytes % 8.3 Eosinophils % 5.2 Basophils % 0.2 Nucleated Red Blood Cells % 0.0 Neutrophils # 4.7 Lymphocytes # 0.6 L Monocytes # 0.5 Eosinophils # 0.3 Basophils # 0.0 Nucleated Red Blood Cells # 0.0 Sodium Level 131 L Potassium Level 5.7 H Chloride Level 94 L Carbon Dioxide Level 25 Anion Gap 18 H Blood Urea Nitrogen 67 H Creatinine 8.67 H Glucose Level 98 Calcium Level 8.5 Phosphorus Level 8.3 H Magnesium Level 2.3 Medications Medications Current Medications Lorazepam (Ativan) 0.5 mg Q6H PRN IV ANXIETY; Start 07/17/16 at 16:00 Ondansetron HCl (Zofran Inj) 4 mg Q6H PRN IV NAUSEA AND/OR VOMITING; Start at 16:00 Acetaminophen (Tylenol Tab) 650 mg Q6H PRN PO PAIN LEVEL 1-3 OR FEVER; Start at 16:00 Acetaminophen/ Hydrocodone Bitart ([place] (5/325)) 1 tab Q6H PRN PO PAIN LEVEL 4 -6 Last administered on 07/21/16 02:50; Admin Dose 1 TAB; Start 07/17/16 at 16: 00 Magnesium Hydroxide (Milk Of Mag) 30 ml DAILY PRN PO CONSTIPATION; Start at 16:00 Bisacodyl (Dulcolax) 5 mg DAILY PRN PO CONSTIPATION Last administered on 05:44; Admin Dose 5 MG; Start 07/17/16 at 16:00 Famotidine (Pepcid) 20 mg Q24H PO Last administered on 07/21/16 20:29; Admin Dose 20 MG; Start 07/17/16 at 21:00 Hydralazine HCl (Apresoline) 10 mg Q6H PRN IV SBP>160; Start 07/17/16 at 16:30 Hydromorphone HCl (Dilaudid) 1 mg Q4H PRN IV PAIN Last administered on 06:53; Admin Dose 1 MG; Start 07/17/16 at 16:30 Carvedilol (Coreg) 6.25 mg BID PO Last administered on 07/21/16 20:30; Admin Dose 6.25 MG; Start 07/17/16 at 21:00 Amlodipine Besylate (Norvasc) 5 mg DAILY PO Last administered on 07/21/16 09: 39; Admin Dose 5 MG; Start 07/18/16 at 09:00 Hydralazine HCl (Apresoline) 10 mg Q4H PRN IV SBP>150 mm Hg ; Start 07/17/16 at 17:00 Morphine Sulfate (morphine) 3 mg Q3H PRN IV PAIN; Start 07/19/16 at 12:30 Acetaminophen/ Hydrocodone Bitart ([place] (5/325)) 1 tab Q3H PRN PO PAIN Last administered on 07/21/16 14:55; Admin Dose 1 TAB; Start 07/19/16 at 12:30 Heparin Sodium (Porcine) (Heparin (5000 Units/0.5 ml)) 5,000 unit Q12 SC Last administered on 07/21/16 20:36; Admin Dose 5,000 UNIT; Start 07/20/16 at 09:00 ; Status Future Hold AME MESA MD July 22, 2016 09:01
[2016-07-22] MEDS: HYDROCODONE/APAP (5/325) TAB PO PRN (09:42)
--- NOTE | 2016-07-22 11:04 | CONS ---
Date/Time of Note Date/Time of Note DATE: 07/22/16 TIME: 10:45 Assessment/Plan Assessment/Plan Chief Complaint/Hosp Course 70 yo with metastatic prostate cancer, newly diagnosed 2 months ago. Pt is s/p fracture of Left hip s/p/ L hemiarthroplasty and has now sustained a Right hip fracture. He is now s/p ORIF of right hip. Pt's Hg dropped to < 8 #Metastatic prostate cancer -need to continue Lupron and Casodex. Lupron should be continued on a q 3 month basis. This was supposed to have been given in the long-term in April but per long-term it was never started. -Case management to arrange for Lupron to be started at long-term upon discharge. Per pharmacy lupron cannot be given in the hospital -will check testosterone level to asses if patient is already castrate resistant -check PSA # Anemia -this is likely from post op blood loss. will give 1 unit of PRBC with dialysis today. if Hg continues to drops after dialysis, will perform anemia workup. if Hg stays below 10, he will likely need to start procrit # Left Hip fracture s/p Left hemiarthroplasty -pt needs Rad onc evaluation. Dr Iqbal called #Acute Right hip fracture -s/p ORIF. will need post op radiation. 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 (3) Closed right hip fracture Status: Acute Qualifiers: Encounter type: initial encounter Qualified Code: S72.001A - Closed right hip fracture, initial encounter Consultation Date/Type/Reason Admit Date/Time July 17, 2016 at 14:51 Initial Consult Date 07/18/16 Type of Consultation: Hematology Reason for Consultation metastatic prostate cancer Referring Provider: DIONI DAWN NP 24 HR Interval Summary Free Text/Dictation pt's pain is under control Exam/Review of Systems Vital Signs Vitals Vital Signs Date Time Temp Pulse Resp B/P Pulse Ox O2 Delivery O2 Flow Rate FiO2 07/22/16 09:00 98.9 76 16 122/68 96 07/20/16 00:59 Nasal Cannula 3.0 Intake and Output 07/21/16 07/21/16 07/22/16 15:00 23:00 07:00 Intake Total 480 ml 1080 ml Output Total 200 ml 200 ml Balance 280 ml 880 ml Exam Constitutional: alert, oriented Psych: nl mood/affect, no complaints Head: normocephalic Eyes: nl conjunctiva ENMT: nl external ears & nose Neck: non-tender, supple Respiratory: clear to auscultation, normal air movement Cardiovascular: nl pulses, regular rate and rhythm Gastrointestinal: soft Musculoskeletal: nl extremities to inspection Extremities: normal pulses Neurological: PIPELINES MANAGER II-XII intact Results Result Diagram: 07/22/16 0505 07/22/16 0515 Results 24 hrs Laboratory Tests Test 07/22/16 05:05 07/22/16 05:15 White Blood Count 6.1 Red Blood Count 2.64 L Hemoglobin 7.8 L Hematocrit 24.6 L Mean Corpuscular Volume 93.2 Mean Corpuscular Hemoglobin 29.5 Mean Corpuscular Hemoglobin Concent 31.7 L Red Cell Distribution Width 14.0 Platelet Count 238 # Mean Platelet Volume 10.3 Neutrophils % 76.7 Lymphocytes % 9.1 L Monocytes % 8.3 Eosinophils % 5.2 Basophils % 0.2 Nucleated Red Blood Cells % 0.0 Neutrophils # 4.7 Lymphocytes # 0.6 L Monocytes # 0.5 Eosinophils # 0.3 Basophils # 0.0 Nucleated Red Blood Cells # 0.0 Sodium Level 131 L Potassium Level 5.7 H Chloride Level 94 L Carbon Dioxide Level 25 Anion Gap 18 H Blood Urea Nitrogen 67 H Creatinine 8.67 H Glucose Level 98 Calcium Level 8.5 Phosphorus Level 8.3 H Magnesium Level 2.3 Medications Medications Current Medications Lorazepam (Ativan) 0.5 mg Q6H PRN IV ANXIETY; Start 07/17/16 at 16:00 Ondansetron HCl (Zofran Inj) 4 mg Q6H PRN IV NAUSEA AND/OR VOMITING; Start at 16:00 Acetaminophen (Tylenol Tab) 650 mg Q6H PRN PO PAIN LEVEL 1-3 OR FEVER; Start at 16:00 Acetaminophen/ Hydrocodone Bitart ([place] (5/325)) 1 tab Q6H PRN PO PAIN LEVEL 4 -6 Last administered on 07/22/16t 09:42; Admin Dose 1 TAB; Start 07/17/16 at 16: 00 Magnesium Hydroxide (Milk Of Mag) 30 ml DAILY PRN PO CONSTIPATION; Start at 16:00 Bisacodyl (Dulcolax) 5 mg DAILY PRN PO CONSTIPATION Last administered on 05:44; Admin Dose 5 MG; Start 07/17/16 at 16:00 Famotidine (Pepcid) 20 mg Q24H PO Last administered on 07/21/16 20:29; Admin Dose 20 MG; Start 07/17/16 at 21:00 Hydralazine HCl (Apresoline) 10 mg Q6H PRN IV SBP>160; Start 07/17/16 at 16:30 Hydromorphone HCl (Dilaudid) 1 mg Q4H PRN IV PAIN Last administered on 06:53; Admin Dose 1 MG; Start 07/17/16 at 16:30 Carvedilol (Coreg) 6.25 mg BID PO Last administered on 07/21/16 20:30; Admin Dose 6.25 MG; Start 07/17/16 at 21:00 Amlodipine Besylate (Norvasc) 5 mg DAILY PO Last administered on 07/21/16 09: 39; Admin Dose 5 MG; Start 07/18/16 at 09:00 Hydralazine HCl (Apresoline) 10 mg Q4H PRN IV SBP>150 mm Hg ; Start 07/17/16 at 17:00 Morphine Sulfate (morphine) 3 mg Q3H PRN IV PAIN; Start 07/19/16 at 12:30 Acetaminophen/ Hydrocodone Bitart ([place] (5/325)) 1 tab Q3H PRN PO PAIN Last administered on 07/21/16 14:55; Admin Dose 1 TAB; Start 07/19/16 at 12:30 Heparin Sodium (Porcine) (Heparin (5000 Units/0.5 ml)) 5,000 unit Q12 SC Last administered on 07/21/16 20:36; Admin Dose 5,000 UNIT; Start 07/20/16 at 09:00 ; Status Future Hold STEPHEN ZAZUETA M.D. July 22, 2016 11:04
--- NOTE | 2016-07-22 12:07 | PDOCDIS ---
Discharge Instructions DIAGNOSIS Discharge Diagnosis: Right hip fracture. CONDITION Patient Condition: Stable HOME CARE INSTRUCTIONS: Special Diet: Renal FOLLOW UP/APPOINTMENTS Appointments 1. Jacky Pedroza MD Specialty: Orthopedic Surgery Office Address: [address] [place] [address] [address] [phone] Office 2. Anabelle Davila MD Specialty: Oncology, Hematology Office Address: [address] [place] [address] [address] [phone] Office OTHER ORDERS: Other Orders: 1. Medications as per medication reconciliation. 2. Activity. No weightbearing on the right lower extremity. 3. Renal diet. 4. Follow-up with Dr. Pedroza in 2 weeks. Follow-up with Dr. Davila in 2 weeks DIONI DAWN NP July 22, 2016 12:07
[2016-07-22] MEDS ORDERED: FAMO20TA18 PO (12:08)
[2016-07-22] MEDS ORDERED: HYDR-3498 PO (12:08)
[2016-07-22] MEDS ORDERED: HEP5KI SC (12:08)
--- NOTE | 2016-07-22 19:00 | DS ---
DATE OF ADMISSION: 07/17/2016 DATE OF DISCHARGE: 07/22/2016 FINAL DIAGNOSES 1. Comminuted right intertrochanteric femoral neck fracture. Status post surgical repair. 2. End-stage renal disease on hemodialysis. 3. Essential hypertension. 4. 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 5. Normocytic normochromic anemia. 5. Hyperkalemia. CONSULTATIONS: 1. Dr. Jerry Che, cardiology. 2. Dr. Catarino Mccabe, nephrology. 3. Dr. Anabelle Davila, oncology. 4. Dr. Nick Pedroza, orthopedic surgery. HOSPITAL COURSE: This is a 70-year-old male with history of essential hypertension, end-stage renal disease on hemodialysis who came to the emergency room after he fell down after a mechanical trip and fall on to his right hip. There was no reported head injury, loss of consciousness, chest pain, syncope or presyncope. The patient recently had a left hip fracture in 05/26/2016 after a mechanical fall. At that time, the patient was noticed to have significant osteoporosis. Oncology did evaluate the patient for underlying malignancy involving the bone. The patient's pathology from the left hip bone surgery showed findings compatible with metastatic adenocarcinoma of prostate surgeon. In the emergency room, the patient underwent a pelvic x-ray that showed comminuted right intertrochanteric femoral neck fracture with displacement of the greater and lesser trochanter with angulation. Provided the patient's history of present illness, his comorbidities and the diagnostic findings, a clinical decision was made to admit the patient to inpatient setting to have him further evaluated. The patient was admitted to inpatient setting. A cardiology consult and nephrology consult was called. Orthopedic surgery consult was also called. An oncology consult was also called since the patient has a history of metastatic adenocarcinoma of prostate origin. The patient was evaluated by orthopedic surgeon and the patient underwent an open reduction and internal fixation of the intertrochanteric fracture of the right hip on 07/19/[address] Nick Pedroza. Post-procedure, the patient was brought back to medical/surgical floor. The patient was provided with adequate pain control. The patient was evaluated by Physical Therapy. Orthopedic surgery recommended nonweightbearing on the right lower extremity for relatively longer time provided the patient's underlying osteoporosis. The patient was maintained on hemodialysis as per nephrology. The patient was maintained on antihypertensives for his essential hypertension. The patient was evaluated by oncology and oncology recommended outpatient chemotherapy. The patient has underlying normocytic normochromic anemia. This could be most probably anemia of chronic kidney disease. The patient's hemoglobin and hematocrit remained stable throughout the hospital course except on 07/22/2016 when his hemoglobin went down below 8. The patient received 2 units of PRBC on 07/19/2016 along with hemodialysis. The patient had a stable hospital course. The patient was cleared by consultants to be discharged to a assisted facility. The patient needs further rehabilitation. DISCHARGE DISPOSITION/PLAN: The patient will be discharged to a assisted facility. Medications will be as per medication reconciliation. Activities will be at the help of physical therapy and no weightbearing on the right lower extremity. The patient will follow a renal diet. The patient's insurance was informed about the need to follow up with Dr. Pedroza in 2 weeks. The patient's insurance was also informed about the need to follow up with Dr. Davila in 2 weeks. CONDITION AT DISCHARGE: Stable. DISCHARGE MEDICATIONS: 1. Famotidine 20 mg p.o. daily. 2. Heparin 5000 units subcutaneously q.12h. 3. [place] 5/325 one tablet p.o. q.3 hours p.r.n. pain. 4. Coreg 6.25 mg p.o. b.i.d. 5. Amlodipine 5 mg p.o. daily. 6. Dulcolax 5 mg p.o. daily p.r.n. constipation. [facility], DIAGNOSTIC DATA AND PROCEDURES: 1. Open reduction and internal fixation of the intertrochanteric fracture of the right hip on 07/22/2016. 2. Latest CBC: WBC 6.1, hemoglobin 7.8, hematocrit 24.6, platelet count 230. 3. Latest BMP: Sodium 131, potassium 5.7, chloride 94, carbon dioxide 28, anion gap 18, BUN 67, creatinine 8.61, glucose 98, calcium 8.54, phosphorus 8.3 , magnesium 2.3. 4. Hemoglobin A1c 4.9. 5. Fasting lipid panel: Triglycerides 107, total cholesterol 173, LDL 85, HDL 60. 6. Prostate specific antigen 344. 7. Pelvic x-ray on admission. 8. Comminuted right intertrochanteric femoral neck fracture with displacement of the greater and lesser trochanters. 9. CXR. Hypoinflated lungs. Atelectasis versus mild infiltrates in the right lower lobe. Scattered subsegmental atelectasis in the left lower lobe. At this time, I would like to thank all the consultants for seeing the patient, doing the necessary procedures and providing clinical recommendations. The case and management of this patient was fully discussed with Dr. Rojo. Approximately 40 minutes was spent on coordinating the discharge on this patient. DIONI ROJO MD, AM/VIOLA Conf#: [id number] DID#: [id number]
--- NOTE | 2016-07-26 06:45 | CONS ---
DATE OF ADMISSION: 07/17/2016 DATE OF CONSULTATION: HISTORY OF PRESENT ILLNESS: The patient is a 70-year-old gentleman with a history of polycystic kid jed disease and end-stage renal disease on hemodialysis for the past 2 years, who was recently diagn osed with metastatic prostate cancer to bone in 04/2016, when he presented with a traumatic patholog ic fracture of the left femur. He was recently readmitted to [facility] after ano ther mechanical fall resulting in a right hip fracture. [facility]. In early 04/2016, the patient fell on his left side while mopping the floor. He presented to [facility] where an x-ray identified a left hip fracture. He was transferred to [facility] for further care. The patient was subsequently managed with a left hip hemiarthroplasty by Dr. Pedroza Tissue from that procedure was sent for pathologic evaluation and findings were consistent with metastatic prostate cancer, PSA positive and PSMA positive. The patient did undergo a whole b lucila bone scan on 05/01/2016, which confirmed the presence of numerous areas of increased activity in both shoulders, the left anterior ribcage, the right posterior 6th rib, the mid cervical spine, T11 and both SI joints, right greater than left. The patient's PSA on 05/05/2016 measured 289. Surpri singly, the alkaline phosphatase level was normal. The patient was subsequently [facility]. It is unclear whether he was actually started on androgen suppression therapy. Rece ntly, he was reportedly discharged from the nursing facility back to home where he sustained a secon d mechanical fall resulting in severe right hip pain 8/10 in intensity. He was readmitted to [facility] where x-rays of the pelvis and hip were performed on 07/17/2016 and confirmed the presence of a comminuted intertrochanteric right femoral neck fracture with displacement of the greater and lesser trochanter bony fragments. The pain was exacerbated with any motion. He denies any other sites of bony discomfort at this time. PAST MEDICAL HISTORY: Hypertension, polycystic disease, end-stage renal disease, on hemodialysis. Anemia of chronic disease. Hyperlipidemia. PAST SURGICAL HISTORY: Right upper extremity fistula for dialysis access, history of AV fistula for dialysis access, history of left hip hemiarthroplasty. SOCIAL HISTORY: He is a former smoker. He denies alcohol use. FAMILY HISTORY: No pertinent family history. ALLERGIES TO MEDICATIONS: NONE. INPATIENT HOSPITAL MEDICATIONS: Include: 1. Ativan. 2. Zofran. 3. [place] 5/325. 4. Dulcolax. 5. 6. Hydralazine. 7. Dilaudid 1 mg q.4. 8. Coreg. 9. Norvasc. REVIEW OF SYSTEMS: GENERAL: He admits to fatigue. Denies fevers, chills, or sweats. ENT: Denies otalgia, dysphagia, hoarseness. HEENT: Denies headaches, visual changes, or extremity numbness. RESPIRATORY: No shortness of breath, cough, hemoptysis, wheezing CARDIOVASCULAR: No history of chest pain, palpitations, heart attacks or strokes. GASTROINTESTINAL: No nausea, vomiting, abdominal pain, or diarrhea. No rectal bleeding. GENITOURINARY: No dysuria, hematuria or incontinence. ENDOCRINE: No history of diabetes or thyroid disease. SKIN: No history of lupus, scleroderma or shingles. MUSCULOSKELETAL: Pain as described. PHYSICAL EXAMINATION: GENERAL: A thin appearing gentleman in moderate discomfort. HEENT: Normocephalic, atraumatic. Sclerae icteric. Pupils myotic. Extraocular motions are intact . No facial asymmetry. NECK: No cervical or supraclavicular adenopathy. ABDOMEN: Soft, nontender without rebound or guarding. EXTREMITIES: No cyanosis or edema. Tenderness noted in the right thigh and hip region. NEUROLOGIC: No focal motor or sensory deficits in the upper extremities. Both lower extremities ar e neurovascularly intact. ASSESSMENT AND PLAN: The patient is a 70-year-old gentleman recently diagnosed with metastatic pros james cancer, status post a fracture of the left hip status post surgical repair and stabilization, n ow status post fracture of the right femoral neck. My understanding is that the patient will be res umed on Lupron and Casodex. A surgical orthopedic evaluation is pending. The patient is supposed t o be continued on Vitamin D and bisphosphonates. Thank you for allowing me to participate in the evaluation of this patient. I do agree that postope rative radiation therapy is a reasonable consideration after surgical stabilization of pathologic fr actures. Thus, once the patient recovers from the surgery, I would recommend that he undergo reasse ssment and consideration of palliative radiotherapy to both hip complexes and femoral shafts. Gener ally, I would recommend a dose of 3000 cGy in 10 fractions to each side. Side effects could include fatigue, and mild skin reaction and irritative voiding symptoms. The patient does appear open to c onsider such treatment in the future, but understands that surgery is necessary to best manage his p ain and enhance recovery. Dictated By: CORBY LOVING/VIOLA Conf#: [id number] DID#: [id number]
== END 2016-07-22 19:10 | DRG 480 ==
LOC: E/R 13:07 → MS2 14:51
PROVIDERS: ADMIT Family Medicine; ATTEND Family Medicine
PROC: 0QS606Z Reposition Right Upper Femur with Intramedullary Internal Fixation Device, Open Approach (ICD-10-PCS; principal; 2016-07-19 10:00)
PROC: 30233N1 Transfusion of Nonautologous Red Blood Cells into Peripheral Vein, Percutaneous Approach (ICD-10-PCS; 2016-07-22)
DX: M80.851A Other osteoporosis with current pathological fracture, right femur, initial encounter for fracture (principal); N18.6 End stage renal disease; S72.141A Displaced intertrochanteric fracture of right femur, initial encounter for closed fracture; C79.51 Secondary malignant neoplasm of bone; I12.0 Hypertensive chronic kidney disease with stage 5 chronic kidney disease or end stage renal disease; Q61.3 Polycystic kidney, unspecified; D63.8 Anemia in other chronic diseases classified elsewhere; C61 Malignant neoplasm of prostate; Z99.2 Dependence on renal dialysis; Z96.642 Presence of left artificial hip joint; W18.30XA Fall on same level, unspecified, initial encounter; Y93.E5 Activity, floor mopping and cleaning; Y92.009 Unspecified place in unspecified non-institutional (private) residence as the place of occurrence of the external cause; Z87.891 Personal history of nicotine dependence; D50.0 Iron deficiency anemia secondary to blood loss (chronic)
CPT/HCPCS: 36430; 71010; 72170; 73500; 73510; 73530; 80048; 80061; 83036; 83735; 84100; 84153; 84154; 84443; 84481; 85025; 85610; 85730; 86850; 86900; 86901; 86920; 90935; 93005; 96374; 96375; 96376; 97162; C1713; J0131; J0690; J1170; J1644; J2250; J2270; J2370; J2405; J2765; J3010; J7030; J7040; P9016; P9045